=== PATIENT | female | born 1935 | race Caucasian/White ===

== ENCOUNTER → 2016-11-07 | Outpatient (CLI) | payer MEDICARE, BC ==
--- NOTE | 2016-11-07 11:33 | US ---
EXAMINATION TYPE: US carotid duplex BILAT DATE OF EXAM: 11/07/2016 9:54 AM COMPARISON: NONE CLINICAL HISTORY: 81-year-old female R09.89 Carotid bruit. No symptoms per patient, bruit per physici an . TECHNIQUE: Carotid duplex ultrasound examination. Indirect Doppler criteria was utilized. FINDINGS: EXAM MEASUREMENTS: RIGHT: Peak Systolic Velocity (PSV) cm/sec ----- Right CCA: 68.4 ----- Right ICA: 411 ----- Right ECA: 153 ICA/CCA ratio: 6.0 RIGHT: End Diastole cm/sec ----- Right CCA: 25.2 ----- Right ICA: 93 ----- Right ECA: 0 LEFT: Peak Systolic Velocity (PSV) cm/sec ----- Left CCA: 82.9 ----- Left ICA: 343 ----- Left ECA: 180 ICA/CCA ratio: 4.1 LEFT: End Diastole cm/sec ----- Left CCA: 28.5 ----- Left ICA: 89.1 ----- Left ECA: 15.2 VERTEBRALS (direction of flow): Right Vertebral: Antegrade Left Vertebral: Antegrade HAY FARMER NOTES: Severe heterogeneous plaque seen bilaterally with significant stenosis bilaterally . IMPRESSION: Severe atherosclerotic change at both bifurcations with measurements suggesting severe, greater than 70% bilateral proximal ICA stenosis. Criteria for Assigning % of Stenosis / Diameter reduction (Estimation based on the indirect measurements of the internal carotid artery velocities (ICA PSV). 1. Normal (no stenosis)=ICA PSV < 125 cm/s: ratio < 2.0: ICA EDV<40 cm/s. 2. Less than 50% stenosis=ICA PSV < 125 cm/s: ratio < 2.0: ICA EDV<40 cm/s. 3. 50 to 69% stenosis=ICA PSV of 125 to 230 cm/s: ration 2.0 ? 4.0: ICA EDV 40-100 cm/s. 4. Greater than 70% stenosis to near occlusion= ICA PSV > 230 cm/s: ratio > 4.0: ICA EDV > 100 cm/s. 5. Near occlusion= ICA PSV velocities may be low or undetectable: variable ratio and ICA EDV. 6. Total occlusion=unable to detect flow.
== END | disposition home or self-care (01) ==
LOC: RADUSWWP 09:16
PROVIDERS: ATTEND Family Medicine
DX: I65.23 Occlusion and stenosis of bilateral carotid arteries (principal)
CPT/HCPCS: 93880

== ENCOUNTER 2017-12-02 10:15 | Day surgery (SDC) | payer MEDICARE, BC ==
[2017-11-30 11:24] VITALS: BMI 27.3
[~2017-12-02 10:15] MED LIST: ALPRAZolam 0.25 MG TAB PO PRN; ASPIRIN 325 MG TAB PO STA; SODIUM CHLORIDE 0.9% 1,000 ML in EMPTY BAG 1 BAG IV ONE
[2017-12-02] MEDS ORDERED: SODIUM CHLORIDE 0.9% 1,000 ML IV ONE (10:50)
[2017-12-02] MEDS ORDERED: hydrALAZINE HCL 20 MG/ML 1 ML VIAL IVP STA (11:14)
[2017-12-02] MEDS ORDERED: LIDOCAINE 2% INJ 20 MG/ML SQ ONE (12:51)
[2017-12-02] MEDS: MIDAZOLAM 2 MG/2 ML VIAL IVP ONE ×2 (12:58→13:11)
[2017-12-02] MEDS ORDERED: HEPARIN SODIUM 1,000 UN/ML (10ML VL) IV ONE (13:02)
[2017-12-02] MEDS ORDERED: NITROGLYCERIN 1000MCG/10ML SYRINGE INTRAARTER ONE (13:37)
[2017-12-02] MEDS ORDERED: IOPAMIDOL-250 100ML BTL INTRAARTER ONE (13:45)
[2017-12-02] MEDS ORDERED: ALBUTEROL NEBULIZED 2.5 MG/3 ML INHALATION PRN (13:48)
[2017-12-02] MEDS ORDERED: SODIUM CHLORIDE 0.9% 1,000 ML IV SCH (14:00)
[2017-12-02] MEDS ORDERED: CLOPIDOGREL 75 MG TAB PO ONE (14:14)
--- NOTE | 2017-12-02 15:59 | IR ---
Fluoroscopy HISTORY: Pain in right leg 11 minutes fluoroscopy time supplied to the referring clinician. 232 intraoperative C-arm images doc ument the procedure. See dictated report from cardiology.
--- NOTE | 2017-12-02 16:02 | PCN ---
PROCEDURE NOTE DATE OF SERVICE: 12/02/2017 PERFORMING PHYSICIAN: Zeyad Andrews MD. PROCEDURES PERFORMED: 1. Selective right SFA angiogram. 2. Selective right popliteal angiogram. 3. Selective right [id number] angiogram. 4. Successful atherectomy of the right SFA using the TurboHawk device. 5. Successful balloon angioplasty of the right SFA using 5.0 x 40 mm Inpact drug- coated balloon with good angiographic results and reduction of stenosis from 90% to 0%. INDICATION: This is a pleasant 82-year-old female patient who sees Dr. Keith Infante in the office as an outpatient who was experiencing right leg intermittent claudication and underwent a peripheral angiogram that revealed severe disease involving the right SFA. She was brought today to undergo atherectomy and BUCKLE ATTACHING MACHINE OPERATOR of the right SFA. APPROACH: Left common femoral artery. COMPLICATIONS: None. LEVEL OF SEDATION: Moderate with sedation length of 55 minutes. PROCEDURE DESCRIPTION: After obtaining informed consent, the patient was brought to the cardiac agricultural labor camp manager. The left common femoral artery was cannulated using micropuncture technique. The micropuncture wire passed easily. Then I placed a 6-Pu[place]ican sheath in the left common femoral artery. Subsequently anticoagulation was initiated using heparin, and the patient was given weight-based heparin with a total of 8000 . I selected the right SFA using an 0.035 Advantage Glidewire with the back-up support of 5-[place]ican RIM catheter. Then I exchanged my 11 cm 6-Pu[place]ican sheath for a 55 cm Remi sheath using the 0.035 Advantage wire. The tip of the long sheath was positioned in the proximal right common femoral artery. After that I wired the lesion using an 0.014 wire. Then I did atherectomy using the TurboHawk device and I was able to extract a significant amount of plaque. After that I did balloon angioplasty initially using 5.0 AngioSculpt and then 5.0 Inpact drug- coated balloon. The following angiogram showed excellent angiographic results, and the procedure was completed without any complication. POST-PROCEDURE MANAGEMENT: 1. Dual anti-platelet therapy. 2. Risk factor modifications. 3. Follow up with the patient. MMODL / IJN: [id number] /
[2017-12-02] MEDS ORDERED: ATROPINE SULFATE 0.1 MG/ML 10ML SYRINGE ONE (17:27)
[2017-12-02] MEDS: levETIRAcetam 500 MG TAB PO SCH (20:33)
[2017-12-02] MEDS: SYMBICORT 160-4.5 MCG INHALER INHALATION SCH (20:39)
[2017-12-02] MEDS ORDERED: ATORVASTATIN 40 MG TAB PO SCH (21:00)
[2017-12-03] MEDS ORDERED: MORPHINE SULFATE 4 MG/ML SYRINGE IVP ONE (00:16)
[2017-12-03 08:02] VITALS: RESP 20
[2017-12-03] MEDS: levETIRAcetam 500 MG TAB PO SCH (08:03)
[2017-12-03] MEDS: SYMBICORT 160-4.5 MCG INHALER INHALATION SCH (08:53)
[2017-12-03] MEDS ORDERED: ASPIRIN 81 MG PO SCH (09:00)
[2017-12-03] MEDS ORDERED: LISINOPRIL-HCTZ 20-25 MG 1 EACH TAB PO SCH (09:00)
[2017-12-03] MEDS ORDERED: CLOPIDOGREL 75 MG TAB PO SCH (09:00)
[2017-12-03 11:25] VITALS: BP 120/59; PULSE 71; TEMP 98.2
[2017-12-03] MEDS ORDERED: CHOLECALCIFEROL 1,000 UNIT TAB PO SCH (12:00)
[2017-12-03] MEDS ORDERED: FERROUS SULFATE 325 MG TAB PO SCH (12:00)
--- NOTE | 2017-12-03 21:33 | DS ---
DISCHARGE SUMMARY DATE OF ADMISSION: 12/02/17 DATE OF DISCHARGE: December 03, 2017 BRIEF HISTORY: This is a pleasant 82-year-old female patient who sees Dr. Keith Infante in the office on a regular basis who was experiencing right leg intermittent claudication and underwent a peripheral angiogram and that revealed critical disease involving the right proximal SFA. She was admitted to the hospital yesterday and underwent successful atherectomy and balloon angioplasty of the right SFA with a good angiographic result and without any complication from the procedure was performed from the left groin. The left groin is soft and nontender and without any bruises. The patient is going to be discharged home on dual anti-platelet therapy as well as on statin. I will follow up with the patient next week in the office. KENNY / MIKAELA: [id number] /
== END 2017-12-03 14:10 | disposition home or self-care (01) ==
LOC: CATHCVL 10:15 → 6SEL 13:52 → CATHCVL 12-03 14:10
PROVIDERS: ATTEND Internal Medicine Interventional Cardiology
DX: I70.213 Atherosclerosis of native arteries of extremities with intermittent claudication, bilateral legs (principal); I25.10 Atherosclerotic heart disease of native coronary artery without angina pectoris; I10 Essential (primary) hypertension; E78.5 Hyperlipidemia, unspecified; J44.9 Chronic obstructive pulmonary disease, unspecified; F17.210 Nicotine dependence, cigarettes, uncomplicated; Z79.899 Other long term (current) drug therapy; Z79.02 Long term (current) use of antithrombotics/antiplatelets; Z79.52 Long term (current) use of systemic steroids
CPT/HCPCS: 94640 ×2; 94760; 37225; 85347; 82565; C1894 ×4; C1725; C1769 ×4; C1714; C2623; J2001; J2250; J2270; J0360; J1644; Q9966

== ENCOUNTER 2018-03-26 11:13 | Inpatient (IN) | payer MEDICARE, BC ==
[2018-03-26] MEDS ORDERED: ALBUTEROL NEBULIZED 2.5 MG/3 ML INHALATION STA (11:59)
[2018-03-26] MEDS ORDERED: SODIUM CHLORIDE 0.9% 1,000 ML IV STA (11:59)
[2018-03-26] MEDS ORDERED: IPRATROPIUM 0.5 MG/2.5 ML NEBU INHALATION STA (11:59)
--- NOTE | 2018-03-26 12:23 | ED ---
General Adult HPI - General Chief complaint: Shortness of Breath Stated complaint: Pneumonia Time Seen by Provider: 03/26/18 11:41 Source: patient, family Mode of arrival: wheelchair Limitations: no limitations - Related Data Home Medications Medication Instructions Recorded Confirmed Albuterol Inhaler [Ventolin Hfa 2 puff INHALATION Q6HR PRN 11/30/17 12/02/17 Inhaler] Aspirin [Adult Low Dose Aspirin EC] 81 mg PO DAILY 11/30/17 12/02/17 Atorvastatin [Lipitor] 40 mg PO HS 11/30/17 12/02/17 Budesonide-Formot 160-4.5 Mcg 2 puff INHALATION Q12HR 11/30/17 12/02/17 [Symbicort 160-4.5 Mcg Inhaler] Cholecalciferol [Vitamin D3] 5,000 unit PO DAILY 11/30/17 12/02/17 Clopidogrel Bisulfate [Plavix] 75 mg PO DAILY 11/30/17 12/02/17 Ferrous Sulfate [Iron (65 MG 325 mg PO DAILY 11/30/17 12/02/17 Elemental)] Lisinopril-Hctz 20-25 mg 1 tab PO DAILY 11/30/17 12/02/17 [Zestoretic 20-25] levETIRAcetam [Keppra] 500 mg PO Q12HR 11/30/17 12/02/17 Allergies Allergy/AdvReac Type Severity Reaction Status Date / Time No Known Allergies Allergy Verified 03/26/18 11:21 Review of Systems ROS Statement: Those systems with pertinent positive or pertinent negative responses have been documented in the HPI. ROS Other: All systems not noted in ROS Statement are negative. Past Medical History Past Medical History: COPD, CVA/TIA, Hypertension, Osteoarthritis (OA), Pneumonia, Vascular Disorder Additional Past Medical History / Comment(s): Jul 2017-seizure in [place], stroke 01/20-no effects, arthritis in neck, dermatitis in guillermo ears, oxygen 2L at night History of Any Multi-Drug Resistant Organisms: None Reported Additional Past Surgical History / Comment(s): guillermo carotid endarterectomy, guillermo cataracts, Past Anesthesia/Blood Transfusion Reactions: No Reported Reaction Past Psychological History: No Psychological Hx Reported Smoking Status: Current every day smoker Past Alcohol Use History: None Reported Past Drug Use History: None Reported - Past Family History Daughter(s) Family Medical History: Cancer General Exam Limitations: no limitations Course Vital Signs 03/26/18 11:19 Temperature 97.8 F Pulse Rate 85 Respiratory 18 Rate Blood Pressure 130/61 O2 Sat by Pulse 93 L Oximetry EKG Findings - EKG Comments: EKG Findings:: EKG shows normal sinus rhythm rate of 69, WA 152, QRS 84, QTc 4: 15 Medical Decision Making - Lab Data Result diagrams: 03/26/18 12:19 Lab Results 03/26/18 Range/Units 12:19 WBC 9.3 (3.8-10.6) k/uL RBC 3.92 (3.80-5.40) m/uL Hgb 12.1 (11.4-16.0) gm/dL Hct 37.8 (34.0-46.0) % MCV 96.4 (80.0-100.0) fL MCH 30.7 (25.0-35.0) pg MCHC 31.9 (31.0-37.0) g/dL RDW 13.2 (11.5-15.5) % Plt Count 318 (150-450) k/uL Neutrophils % 79 % Lymphocytes % 10 % Monocytes % 7 % Eosinophils % 2 % Basophils % 1 % Neutrophils # 7.3 (1.3-7.7) k/uL Lymphocytes # 1.0 (1.0-4.8) k/uL Monocytes # 0.6 (0-1.0) k/uL Eosinophils # 0.2 (0-0.7) k/uL Basophils # 0.1 (0-0.2) k/uL Disposition Clinical Impression: Community acquired pneumonia, Failure of outpatient treatment Disposition: ADMITTED IP TO THIS HOSP Condition: Good Is patient prescribed a controlled substance at d/c from ED?: No Referrals: Angel Thomson MD [Primary Care Provider] - 1-2 days
[2018-03-26 12:31] LABS: Basophils # (A) 0.1 k/uL (0-0.2); Basophils % (A) 1 %; Eosinophils # (A) 0.2 k/uL (0-0.7); Eosinophils % (A) 2 %; HCT 37.8 % (34.0-46.0); HGB 12.1 gm/dL (11.4-16.0); Lymphocytes % (A) 10 %; MCH 30.7 pg (25.0-35.0); MCHC 31.9 g/dL (31.0-37.0); MCV 96.4 fL (80.0-100.0); Mean Platelet Volume 6.8; Monocytes # (A) 0.6 k/uL (0-1.0); Monocytes % (A) 7 %; Neutrophils # (A) 7.3 k/uL (1.3-7.7); Neutrophils % (A) 79 %; Platelet Count 318 k/uL (150-450); RBC 3.92 m/uL (3.80-5.40); RDW 13.2 % (11.5-15.5); WBC 9.3 k/uL (3.8-10.6)
[2018-03-26] MEDS ORDERED: LEVOFLOXACIN 750MG-D5W PMX 750 MG in DEXTROSE/WATER 1 150ML.BAG IVPB STA (12:35)
[2018-03-26] MEDS ORDERED: PIPERACILLIN-TAZOBACTAM 3.375 GM in DEXTROSE/WATER 1 50ML.BAG IVPB STA (12:35)
[2018-03-26] MEDS ORDERED: PNEUMONIA PROTOCOL UTILIZED 1 EACH MISC PO PRN (12:35)
[2018-03-26 12:43] LABS: Partial Thromboplastin Time 22.4 sec (22.0-30.0); Prothrombin Time 9.9 sec (9.0-12.0)
[2018-03-26 12:48] LABS: Albumin 3.4 g/dL (3.5-5.0); Calcium 8.8 mg/dL (8.4-10.2); Magnesium 1.7 mg/dL (1.6-2.3); Potassium 4.3 mmol/L (3.5-5.1); Total Bilirubin 0.4 mg/dL (0.2-1.3); Total Protein 6.2 g/dL (6.3-8.2)
[2018-03-26 12:51] LABS: Creatine Kinase 57 U/L (30-135)
[2018-03-26 13:02] LABS: Creatine Kinase MB 1.1 ng/mL (0.0-2.4); Troponin I <0.012 ng/mL (0.000-0.034)
[2018-03-26] MEDS: IPRATROPIUM-ALBUTEROL 3 ML NEB INHALATION SCH ×2 (16:08→20:17)
[2018-03-26] MEDS: ACETAMINOPHEN TAB 325 MG TAB PO PRN (17:34)
[2018-03-26] MEDS ORDERED: BETAMETHASONE DIPROPIONATE 0.05% CREAM 15 GM TUBE TOPICAL PRN (22:30)
[2018-03-26] MEDS ORDERED: LACTULOSE 20 GM/30 ML CUP PO PRN (22:34)
[2018-03-26] MEDS ORDERED: CALCIUM CARBONATE 500 MG CHEWABLE PO PRN (22:34)
[2018-03-26] MEDS ORDERED: ALPRAZolam 0.25 MG TAB PO PRN (22:34)
[2018-03-26] MEDS ORDERED: MAGNESIUM HYDROXIDE 2,400 MG/10 ML CUP PO PRN (22:34)
[2018-03-26] MEDS ORDERED: ONDANSETRON 4 MG/2 ML VIAL IVP PRN (22:34)
[2018-03-26] MEDS ORDERED: MELATONIN 3 MG TABLET PO PRN (23:00)
[2018-03-26] MEDS: methylPREDNISolone SOD SUCCI 40 MG/ML 1 ML VIAL IV SCH (23:14)
--- NOTE | 2018-03-26 23:28 | HP ---
HISTORY AND PHYSICAL DATE OF ADMISSION: 03/26/2018 PRESENTING COMPLAINT: Short of breath. HISTORY OF PRESENTING COMPLAINT: This is a pleasant 82-year-old patient of Dr. Thomson, follows with engineering technical specialist Dr. Nam Reyes. Chronic stable medical conditions include hypertension, osteoarthritis, chronic hypoxic respiratory failure on 2L oxygen at home. The patient has continued to smoke for several years. The patient presents with progressive short of breath, wheezing, slight cough. No fever. No chills. Decreased appetite. Tired, run down, can barely breathe at rest. Patient is found to be in COPD exacerbation, started on bronchodilators. Admitted for the same. Denies any fever or chills. No diarrhea. REVIEW OF SYSTEMS: CONSTITUTIONAL: Tired. HEENT: None. RESPIRATORY: As above. CARDIOVASCULAR: None. GASTROINTESTINAL: None. GENITOURINARY: None. MUSCULOSKELETAL: Arthritic pain in joints, especially in the neck. DERMATOLOGICAL: None. HEMATOLOGICAL: None. LYMPHATICS: None. PSYCHIATRY: Slightly anxious. NEUROLOGICAL: None. PAST MEDICAL HISTORY: COPD, hypertension, osteoarthritis, vascular disorder, seizure in 2018 in the , stroke in January of 2013 with no effect, arthritis in the neck, dermatitis in the ears, oxygen 2L at night. PAST SURGICAL HISTORY: Bilateral carotid endarterectomy, bilateral cataract, angiogram, arthrectomy, balloon angioplasty of the right superficial femoral artery. SOCIAL HISTORY: Lives alone. Still smokes about 5 cigarettes a day. Smoked for 65 years, more so in the past. No alcohol. FAMILY HISTORY: Brain aneurysm. HOME MEDICATIONS: 1. Medrol Dosepak. 2. Multivitamin 1 tablet p.o. daily. 3. Zestoretic 20/25 one tablet p.o. daily. 4. DuoNeb 3 mL. 5. Boniva 150 mg p.o. once a month. 6. Fluocinonide 1 dose both ears q.i.d. p.r.n. 7. Iron 325 p.o. daily. 8. Doxycycline 100 mg p.o. b.i.d. 9. Plavix 75 mg p.o. daily. 10.Vitamin D3 5000 units p.o. daily. 11.Calcium 1000 mg p.o. daily. 12.Symbicort 160/4.5, 2 puffs b.i.d. 13.Lipitor 40 mg q.h.s. 14.Aspirin 81 mg p.o. daily. 15.Ventolin HFA 2 puffs every 6 hours p.r.n. 16.Tudorza 1 puff b.i.d. ALLERGIES: None. EXAMINATION: Temperature 97.8, pulse 64, respirations 18, blood pressure 130/61, pulse ox 93% on 2L. GENERAL APPEARANCE: Average build, lying in bed, short of breath. EYES: Pupils equal. Conjunctivae normal. HEENT: External nose and ears normal. Oral cavity normal. NECK: JVD not raised. Mass not palpable. RESPIRATORY: Effort increased. Short of breath at rest, not able to speak full in full sentences. LUNGS: Diminished breath sounds. Prolonged expiration, wheezing. CARDIOVASCULAR: First and second sounds normal. No edema. ABDOMEN: Soft, nontender. Liver and spleen not palpable. LYMPHATIC: No lymph node palpable in neck or axillae. PSYCHIATRY: Alert and oriented x3. Mood and affect slightly anxious-appearing. NEUROLOGICAL: Pupils equal. Cranial nerves grossly intact. Power and sensation grossly intact. MUSCULOSKELETAL: Some evidence of osteoarthritis, especially in the hands. INVESTIGATIONS: White count 9.3, hemoglobin 12.1. Potassium 4.3, BUN 25, creatinine 0.86. EKG tracing interpreted by me shows normal sinus rhythm. Chest x-ray ordered. ASSESSMENT: 1. Acute severe chronic obstructive pulmonary disease exacerbation in a current smoker. 2. Chronic nicotine dependence. Patient an active cigarette smoker. 3. Essential hypertension. 4. Primary osteoarthritis, multiple joints. 5. Chronic hypoxic respiratory failure on home oxygen 2L. PLAN: Patient is started on nebulized Daliresp q.4, IV Solu-Medrol inhaled steroids. Home medications are resumed. Will humidify the oxygen. The patient's engineering technical specialist, Dr. Reyes, is being consulted. Care was discussed with the patient at length. Smoking cessation counseling was done at length with the patient, including effects on her COPD. Nicotine patch will be given. More than 3 minutes was spent on this aspect of the case. MMODL / IJN: [id number] /
[2018-03-26] MEDS: BUDESONIDE 1 MG/2 ML NEBU INHALATION SCH (23:49)
[2018-03-26] MEDS: IPRATROPIUM-ALBUTEROL 3 ML NEB INHALATION PRN (23:49)
[2018-03-27] MEDS ORDERED: IPRATROPIUM-ALBUTEROL 3 ML NEB INHALATION SCH
[2018-03-27] MEDS: NICOTINE 7MG/24HR PATCH TRANSDERM SCH ×3 (00:14→08:24)
[2018-03-27] MEDS: ATORVASTATIN 40 MG TAB PO SCH ×2 (00:14→19:54)
[2018-03-27] MEDS: methylPREDNISolone SOD SUCCI 40 MG/ML 1 ML VIAL IV SCH ×4 (00:14→23:01)
[2018-03-27] MEDS: PIPERACILLIN-TAZOBACTAM 3.375 GM in DEXTROSE/WATER 1 50ML.BAG IVPB SCH ×4 (00:16→23:01)
[2018-03-27] MEDS: IPRATROPIUM-ALBUTEROL 3 ML NEB INHALATION PRN (03:55)
[2018-03-27 07:10] LABS: Glucose,Whole Blood 196 mg/dL (75-99)
[2018-03-27] MEDS ORDERED: SYMBICORT 160-4.5 MCG INHALER INHALATION SCH (08:00)
[2018-03-27] MEDS: IPRATROPIUM-ALBUTEROL 3 ML NEB INHALATION SCH ×4 (08:17→20:14)
[2018-03-27] MEDS: BUDESONIDE 1 MG/2 ML NEBU INHALATION SCH ×2 (08:17→20:14)
[2018-03-27] MEDS: CHOLECALCIFEROL 1,000 UNIT TAB PO SCH (08:24)
[2018-03-27] MEDS: CALCIUM CARBONATE 500 MG CHEWABLE PO SCH (08:24)
[2018-03-27] MEDS: INSULIN ASPART 100 UNIT/ML 1 ML 10 ML VIAL SQ SCH ×3 (08:25→18:02)
[2018-03-27] MEDS: LISINOPRIL-HCTZ 20-25 MG 1 EACH TAB PO SCH (08:25)
[2018-03-27] MEDS: ASPIRIN 81 MG PO SCH (08:25)
[2018-03-27] MEDS: ENOXAPARIN 40 MG/0.4 ML SYRINGE SQ SCH (08:26)
[2018-03-27] MEDS: CLOPIDOGREL 75 MG TAB PO SCH (08:26)
[2018-03-27] MEDS: FERROUS SULFATE 325 MG TAB PO SCH (08:26)
[2018-03-27 12:08] LABS: Glucose,Whole Blood 252 mg/dL (75-99)
--- NOTE | 2018-03-27 12:20 | XR ---
EXAMINATION TYPE: XR chest 2V DATE OF EXAM: 03/27/2018 HISTORY: pneumonia. REFERENCE: NONE. FINDINGS: There is a right lower lobe infiltrate. There may also be a mild left lower lobe infiltrate . There is a small right effusion. The heart is not enlarged. IMPRESSION: 1. BIBASILAR INFILTRATES. 2. SMALL RIGHT EFFUSION.
[2018-03-27] MEDS: MULTIVITAMINS, THERA 1 EACH TAB PO SCH (12:52)
[2018-03-27] MEDS ORDERED: LEVOFLOXACIN 750MG-D5W PMX 750 MG in DEXTROSE/WATER 1 150ML.BAG IVPB SCH (16:00)
[2018-03-27 17:26] LABS: Glucose,Whole Blood 290 mg/dL (75-99)
[2018-03-27] MEDS: FAMOTIDINE 20 MG TAB PO SCH (19:54)
[2018-03-27] MEDS: MONTELUKAST 10 MG TAB PO SCH (19:54)
[2018-03-27 20:54] LABS: Glucose,Whole Blood 142 mg/dL (75-99)
--- NOTE | 2018-03-27 22:29 | CONS ---
CONSULTATION Elba Burnham is an 82-year-old female who presented to the ED at [facility] with increasing shortness of breath. She had been doing fair up until 5 days ago when she developed shortness of breath. She had been in the [facility] and started to have cough with wheezing. She had no fever or chills. She was seen by her primary care provider 2 days after that. Subsequently was started on steroids and antibiotics. She was seen again and had failed to improve and subsequently was sent to the ER for further evaluation. She apparently was treated for pneumonia about 6 weeks ago. She does not have much sputum production and is feeling somewhat better today. PAST MEDICAL HISTORY: Positive for COPD. No clear history of asthma. However, she has seasonal worsening of her symptoms and allergy-like symptoms usually during this spring. History of CVA, TIA, a history of seizures, history of bilateral carotid endarterectomy, bilateral cataract surgery. SOCIAL HISTORY: Positive for hypertension and diabetes in her mother and father. SOCIAL HISTORY: Patient is a smoker, smokes about 5 cigarettes per day and used to smoke about 1-2 packs of cigarettes per day. She does not drink alcohol excessively. MEDICATIONS: Prior to admission were Medrol Dosepak, multivitamins, Zestoretic, DuoNeb, Boniva, fluocinonide solution to both ears, ferrous sulfate, doxycycline, clopidogrel bisulfate, calciferol, calcium carbonate, budesonide with formoterol, Lipitor, baby aspirin, Tudorza, and Ventolin HFA. REVIEW OF SYSTEMS: Noncontributory. PHYSICAL EXAMINATION: Respiratory rate is 18, pulse rate of 92, O2 saturation on 2 L by nasal cannula is 92%, temperature is 97.6, blood pressure 124/60. HEENT reveals pupils are equal. No jugular venous distention. Chest reveals decreased breath sounds with prolonged expiration, bilateral expiratory wheeze. Cardiovascular system reveals an S1, S2. No S3, no S4. ABDOMEN: Soft. There is no pedal edema. LABS: Reveal a white count of 9.3, hemoglobin of 12.1, sodium 138, potassium 4.3, chloride 102, bicarb 31, BUN 25, creatinine 0.86, absolute eosinophil count of 0.2, glucose is 196. Chest x-ray shows right lower zone infiltrate with a mild left lower zone infiltrate or atelectasis is a small right pleural effusion. IMPRESSION: 1. Severe asthma with chronic obstructive pulmonary disease with acute exacerbation. 2. It is not clear whether the patient has a secondary bacterial infection and may have a partially treated pneumonia versus mucous plugging in the lower zones. As the patient had received doxycycline as an outpatient, would continue her on the Levaquin for now. Would keep her on IV steroids, bronchodilators, aerosolized steroids at regimen in the hopes that we can decrease her need for systemic steroids. Check an allergy profile on her. Increase her activity level. Depending on how she does we should make further changes to her care. She was counseled regarding her condition and this approach. MMODL / IJN: [id number] /
--- NOTE | 2018-03-28 04:23 | PN ---
PROGRESS NOTE DATE OF SERVICE: 03/27/2018. PRESENTING COMPLAINT: Short of breath. INTERVAL HISTORY: Patient admitted with COPD exacerbation. The patient's shortness of breath is still present. Minimal cough. Did tolerate a diet. Has been taking breathing treatments which she had refused initially. Family is at the bedside. REVIEW OF SYSTEMS: Done for constitutional, cardiovascular, GI, pulmonary; relevant findings as above. CURRENT MEDICATIONS: Reviewed that include DuoNeb, IV Solu-Medrol 40 q.8h. EXAMINATION: Temperature 97.6, pulse 83, respirations 16, blood pressure 120/53, pulse ox 91 percent on 2 L. GENERAL APPEARANCE: Sitting up in bed, awake. EYES: Pupils equal. Conjunctivae normal. HEENT: External ears and nose normal. Oral cavity normal. NECK: JVD not raised. Mass not palpable. Respiratory effort increased. LUNGS: Decreased breath sounds. Prolonged expiration. CARDIOVASCULAR: First and second sounds normal, no edema. ABDOMEN: Soft, nontender. Liver and spleen not palpable. PSYCHIATRY: Alert and oriented x3. Mood and affect slightly anxious. INVESTIGATIONS: Accu-Cheks 252, 290, 142. ASSESSMENT: 1. Acute severe chronic obstructive pulmonary disease exacerbation in a current smoker, slow to respond. 2. Chronic nicotine dependence, patient active cigarette smoker. 3. Essential hypertension. 4. Primary osteoarthritis multiple joints. 5. Chronic hypoxic respiratory failure on home oxygen 2 L. 6. Hyperglycemia secondary to steroids. PLAN: Continue the patient on breathing treatments, IV Solu-Medrol. Smoking cessation was reinforced to the patient and also the patient's daughter at the bedside. Care was discussed with the patient. Questions were answered. MMODL / IJN: [id number] /
[2018-03-28 07:16] LABS: Glucose,Whole Blood 194 mg/dL (75-99)
[2018-03-28] MEDS: CALCIUM CARBONATE 500 MG CHEWABLE PO SCH (07:26)
[2018-03-28] MEDS: LISINOPRIL-HCTZ 20-25 MG 1 EACH TAB PO SCH (07:26)
[2018-03-28] MEDS: PIPERACILLIN-TAZOBACTAM 3.375 GM in DEXTROSE/WATER 1 50ML.BAG IVPB SCH (07:27)
[2018-03-28] MEDS: CLOPIDOGREL 75 MG TAB PO SCH (07:27)
[2018-03-28] MEDS: ASPIRIN 81 MG PO SCH (07:27)
[2018-03-28] MEDS: ENOXAPARIN 40 MG/0.4 ML SYRINGE SQ SCH (07:27)
[2018-03-28] MEDS: NICOTINE 7MG/24HR PATCH TRANSDERM SCH ×2 (07:27→08:00)
[2018-03-28] MEDS: methylPREDNISolone SOD SUCCI 40 MG/ML 1 ML VIAL IV SCH (07:27)
[2018-03-28] MEDS: CHOLECALCIFEROL 1,000 UNIT TAB PO SCH (07:27)
[2018-03-28] MEDS: FERROUS SULFATE 325 MG TAB PO SCH (07:27)
[2018-03-28] MEDS: FAMOTIDINE 20 MG TAB PO SCH ×2 (07:27→20:23)
[2018-03-28] MEDS: INSULIN ASPART 100 UNIT/ML 1 ML 10 ML VIAL SQ SCH ×3 (07:58→17:40)
[2018-03-28] MEDS: BUDESONIDE 1 MG/2 ML NEBU INHALATION SCH ×2 (09:12→20:01)
[2018-03-28] MEDS: IPRATROPIUM-ALBUTEROL 3 ML NEB INHALATION SCH ×4 (09:12→20:01)
[2018-03-28 12:39] LABS: Glucose,Whole Blood 243 mg/dL (75-99)
[2018-03-28] MEDS: MULTIVITAMINS, THERA 1 EACH TAB PO SCH (12:45)
[2018-03-28] MEDS: predniSONE 20 MG TAB PO SCH (14:40)
--- NOTE | 2018-03-28 15:10 | PN ---
PROGRESS NOTE She is less short of breath and seen again on 03/28/2018. She has less wheezing. On physical examination she is sitting in bed. Her O2 saturation on 2 L by nasal cannula is 92%, respiratory rate is 18, temperature 98.2, blood pressure 141/68, pulse rate of 75. HEENT is unremarkable. Chest reveals faint wheeze on forced expiration. Cardiovascular system: S1, S2. Abdomen is soft. There is no pedal edema. IgE level is high at 307. IMPRESSION: 1. Severe asthma with acute exacerbation. 2. Baseline chronic obstructive pulmonary disease. 3. Previous nicotine dependence. At this point in time continue systemic steroids, switch her to oral steroids, continue bronchodilators, aerosolized steroid. She would benefit from anti IgE treatment as an outpatient. She was counseled regarding her condition and this approach. MMFEIL / IJN: [id number] /
[2018-03-28] MEDS: LEVOFLOXACIN 500 MG TAB PO SCH (15:52)
--- NOTE | 2018-03-28 16:55 | PN ---
PROGRESS NOTE DATE OF SERVICE: 03/28/2018. PRESENTING COMPLAINT: Short of breath. INTERVAL HISTORY: Patient presented with COPD exacerbation. Still has a wheezing. Minimal cough, no sputum. Gets short of breath easily. Family is at the bedside. Tolerating a diet. REVIEW OF SYSTEMS: Done for constitutional, cardiovascular, GI, pulmonary; relevant findings as above. CURRENT MEDICATIONS: Reviewed, that include oral prednisone. EXAMINATION: Temperature 98.1, pulse 59, respirations 17, blood pressure 140/65, pulse 92 percent on 3 liters. GENERAL APPEARANCE: Sitting up, awake. EYES: Pupils equal. Conjunctivae normal. HEENT: External nose and ears normal. Oral cavity normal. NECK: JVD not raised. Mass not palpable. LUNGS: Respiratory effort increased. Lungs decreased breath sounds, prolonged expiration and wheezing. CARDIOVASCULAR: 1st and 2nd heart sounds. No edema. ABDOMEN: Soft, nontender. Liver and spleen not palpable. PSYCHIATRY: Alert and oriented x3. Mood and affect normal. INVESTIGATIONS: Accu-Cheks 291, 42, 194, 243. ASSESSMENT: 1. Acute severe chronic obstructive pulmonary disease exacerbation in a current smoker, slow to respond. 2. Chronic nicotine dependence, patient is an active cigarette smoker. 3. Essential hypertension. 4. Primary osteoarthritis of multiple joints. 5. Chronic hypoxic respiratory failure on home oxygen 2 L. 6. Hyperglycemia secondary to steroids. PLAN: Continue bronchodilators. Has been switched to p.o. prednisone by Dr. Ramos. The patient is afebrile, not bringing up much sputum. We will switch the patient over to p.o. Levaquin and go from there. MMODL / IJN: [id number] /
[2018-03-28 17:51] LABS: Glucose,Whole Blood 211 mg/dL (75-99)
[2018-03-28] MEDS: MONTELUKAST 10 MG TAB PO SCH (20:23)
[2018-03-28] MEDS: ATORVASTATIN 40 MG TAB PO SCH (20:23)
[2018-03-28 20:34] LABS: Glucose,Whole Blood 164 mg/dL (75-99)
[2018-03-29 07:23] LABS: Glucose,Whole Blood 127 mg/dL (75-99)
[2018-03-29] MEDS: IPRATROPIUM-ALBUTEROL 3 ML NEB INHALATION SCH ×4 (08:01→20:59)
[2018-03-29] MEDS: BUDESONIDE 1 MG/2 ML NEBU INHALATION SCH ×2 (08:01→20:59)
[2018-03-29] MEDS: INSULIN ASPART 100 UNIT/ML 1 ML 10 ML VIAL SQ SCH ×3 (08:17→17:23)
[2018-03-29] MEDS: NICOTINE 7MG/24HR PATCH TRANSDERM SCH (08:18)
[2018-03-29] MEDS: FERROUS SULFATE 325 MG TAB PO SCH (08:19)
[2018-03-29] MEDS: ASPIRIN 81 MG PO SCH (08:19)
[2018-03-29] MEDS: predniSONE 20 MG TAB PO SCH (08:19)
[2018-03-29] MEDS: CALCIUM CARBONATE 500 MG CHEWABLE PO SCH (08:19)
[2018-03-29] MEDS: ENOXAPARIN 40 MG/0.4 ML SYRINGE SQ SCH (08:19)
[2018-03-29] MEDS: MULTIVITAMINS, THERA 1 EACH TAB PO SCH (08:19)
[2018-03-29] MEDS: LISINOPRIL-HCTZ 20-25 MG 1 EACH TAB PO SCH (08:19)
[2018-03-29] MEDS: CLOPIDOGREL 75 MG TAB PO SCH (08:20)
[2018-03-29] MEDS: FAMOTIDINE 20 MG TAB PO SCH (08:20)
[2018-03-29] MEDS: LEVOFLOXACIN 500 MG TAB PO SCH (08:20)
[2018-03-29 09:01] LABS: Basophils % (A) 0 %; Eosinophils % (A) 0 %; HCT 37.8 % (34.0-46.0); HGB 12.2 gm/dL (11.4-16.0); Lymphocytes # (A) 1.2 k/uL (1.0-4.8); Lymphocytes % (A) 11 %; MCH 31.3 pg (25.0-35.0); MCHC 32.3 g/dL (31.0-37.0); MCV 96.8 fL (80.0-100.0); Mean Platelet Volume 6.9; Monocytes # (A) 0.5 k/uL (0-1.0); Monocytes % (A) 5 %; Neutrophils # (A) 8.7 k/uL (1.3-7.7); Neutrophils % (A) 82 %; Platelet Count 355 k/uL (150-450); RBC 3.91 m/uL (3.80-5.40); RDW 13.3 % (11.5-15.5); WBC 10.7 k/uL (3.8-10.6)
[2018-03-29] MEDS: CHOLECALCIFEROL 1,000 UNIT TAB PO SCH (09:15)
[2018-03-29 09:17] LABS: Calcium 8.6 mg/dL (8.4-10.2); Potassium 4.4 mmol/L (3.5-5.1)
[2018-03-29 11:54] LABS: Glucose,Whole Blood 275 mg/dL (75-99)
--- NOTE | 2018-03-29 12:09 | P.PN ---
Subjective Progress Note Date: 03/29/18 Principal diagnosis: Acute COPD exacerbation, bilateral pneumonia, failed outpatient therapy, small right-sided pleural effusion 03/29/2018, patient seen eval examined during the rounds clinically she is doing slightly better breathing has improved was still feel congested get short of breath on activity and exertion she has significant bilateral audible wheezing her cough is predominantly dry nonproductive, she remains on broad- spectrum antibiotics along with the IV steroids and breathing treatments, Solu- Medrol was switched to oral prednisone Objective - Vital Signs Vital signs: Vital Signs Temp 98.0 F 03/29/18 07:10 Pulse 89 03/29/18 11:52 Resp 16 03/29/18 07:10 BP 145/89 03/29/18 07:10 Pulse Ox 92 L 03/29/18 07:10 Intake & Output 03/28/18 03/29/18 03/29/18 18:59 06:59 18:59 Other: Voiding Method Toilet Toilet # Voids 2 2 # Bowel Movements 0 - Constitutional General appearance: Present: average body habitus, cooperative, disheveled, mild distress, obese - EENT Eyes: Present: anicteric sclerae, EOMI, PERRLA, normal appearance ENT: Present: normal oropharynx Ears: bilateral: normal - Neck Carotids: bilateral: upstroke normal - Respiratory Respiratory: bilateral: diminished, rhonchi, wheezing, prolonged expiration, prolonged inspiration - Cardiovascular Rhythm: regular Heart sounds: normal: S1, S2 - Gastrointestinal General gastrointestinal: Present: normal bowel sounds, soft - Integumentary Integumentary: Present: normal, normal turgor - Neurologic Neurologic: Present: CNII-XII intact - Musculoskeletal Musculoskeletal: Present: gait normal, generalized weakness, strength equal bilaterally - Psychiatric Psychiatric: Present: A&O x's 3, appropriate affect, intact judgment & insight - Labs CBC & Chem 7: 03/29/18 08:25 03/29/18 08:25 Labs: Abnormal Lab Results - Last 24 Hours (Table) 03/28/18 03/28/18 03/28/18 Range/Units 12:37 17:30 20:32 WBC (3.8-10.6) k/uL Neutrophils # (1.3-7.7) k/uL Carbon Dioxide (22-30) mmol/L BUN (7-17) mg/dL Glucose (74-99) mg/dL POC Glucose (mg/dL) 243 H 211 H 164 H (75-99) mg/dL 03/29/18 03/29/18 03/29/18 Range/Units 07:21 08:25 08:25 WBC 10.7 H (3.8-10.6) k/uL Neutrophils # 8.7 H (1.3-7.7) k/uL Carbon Dioxide 31 H (22-30) mmol/L BUN 31 H (7-17) mg/dL Glucose 124 H (74-99) mg/dL POC Glucose (mg/dL) 127 H (75-99) mg/dL 03/29/18 Range/Units 11:50 WBC (3.8-10.6) k/uL Neutrophils # (1.3-7.7) k/uL Carbon Dioxide (22-30) mmol/L BUN (7-17) mg/dL Glucose (74-99) mg/dL POC Glucose (mg/dL) 275 H (75-99) mg/dL Microbiology - Last 24 Hours (Table) 03/26/18 14:55 Blood Culture - Preliminary Blood No Growth after 48 hours 03/26/18 12:19 Blood Culture - Preliminary Blood No Growth after 48 hours - Imaging and Cardiology Chest x-ray: report reviewed, image reviewed Assessment and Plan Assessment: Bilateral basal pneumonia, with failed outpatient therapy Small right-sided pleural effusion Acute COPD exacerbation with baseline severe COPD Hypertension and hypertensive cardiovascular disease Acute on chronic hypoxic respirator failure on home oxygen Degenerative joint disease osteoarthritis Plan: Continue breathing treatments Continue oral prednisone Continue supplemental oxygen Agree with switching IV steroids to oral prednisone Continue antibiotics Deep breathing exercises incentive spirometry Repeat the chest x-ray to reassess the pleural effusion on the right side Further recommendations pending plan of care as per clinical response of patient would recommend to keep the patient and the hospital not ready for discharge discussed with the nursing staff at length as well as the patient Time with Patient: Greater than 30
--- NOTE | 2018-03-29 14:18 | XR ---
EXAMINATION TYPE: XR chest 2V DATE OF EXAM: 03/29/2018 COMPARISON: March 27, 2018 HISTORY: Shortness of breath TECHNIQUE: Frontal and lateral views of the chest are obtained. FINDINGS: Scattered senescent parenchymal changes noted. Hyperinflation compatible with COPD. No evidence for infiltrate. No evidence for atelectasis. Heart size is stable. Mediastinal structures are stable and grossly unremarkable. No evidence for hilar prominence. Degenerative changes dorsal spine. IMPRESSION: 1. No evidence for acute pulmonary disease.
[2018-03-29 17:06] LABS: Glucose,Whole Blood 193 mg/dL (75-99)
[2018-03-29] MEDS: MONTELUKAST 10 MG TAB PO SCH (19:44)
[2018-03-29] MEDS: ATORVASTATIN 40 MG TAB PO SCH (19:44)
[2018-03-30] MEDS: ACETAMINOPHEN TAB 325 MG TAB PO PRN (06:09)
--- NOTE | 2018-03-30 06:09 | PN ---
PROGRESS NOTE DATE OF SERVICE: 03/29/18. PRESENTING COMPLAINT: Short of breath. INTERVAL HISTORY: Patient presented with COPD exacerbation. Breathing is improving. At present tolerating a diet. Minimal cough. Getting oxygen support. Tolerating a diet. REVIEW OF SYSTEMS: Done for constitutional, cardiovascular, GI, pulmonary; relevant findings as above. CURRENT MEDICATIONS: Reviewed and include nebulized bronchodilators and steroids. EXAMINATION: Temperature 99.5, pulse 72, respiration 16, blood pressure 123/57, pulse ox 91 percent on 2.5 L. GENERAL APPEARANCE: Sitting in bed, tired-appearing. EYES: Pupils equal. Conjunctivae normal. HEENT: External appearance of nose and ears normal. Oral cavity normal. NECK: JVD not raised. Mass not palpable. RESPIRATORY: Effort increased. Lungs, decreased breath sounds with prolonged expiration. CARDIOVASCULAR: First and second sounds normal, no edema. ABDOMEN: Soft, nontender. Liver and spleen not palpable. PSYCHIATRY: Alert and oriented x3. Mood and affect normal. INVESTIGATIONS: Accu-Cheks are noted. White count 10.7. Chest x-ray, no infiltrate. ASSESSMENT: 1. Acute severe chronic obstructive pulmonary disease exacerbation in a current smoker. 2. Chronic nicotine dependence, patient active cigarette smoker. 3. Essential hypertension. 4. Primary osteoarthritis of multiple joints. 5. Chronic hypoxic respiratory failure on home oxygen 2 L. 6. Hyperglycemia secondary to steroids. PLAN: Care was discussed with the patient. Questions were answered. Continue current medication and treatment plan. Hoping to discharge the patient depending on Dr. Reyes's assessment. MMODL / IJN: [id number] /
[2018-03-30 06:12] VITALS: TEMP 97.8
[2018-03-30] MEDS: LISINOPRIL-HCTZ 20-25 MG 1 EACH TAB PO SCH (06:43)
[2018-03-30] MEDS: cloNIDine HCL 0.1 MG TAB PO SCH ×2 (06:44→08:34)
[2018-03-30 07:06] LABS: Glucose,Whole Blood 103 mg/dL (75-99)
[2018-03-30] MEDS: INSULIN ASPART 100 UNIT/ML 1 ML 10 ML VIAL SQ SCH ×2 (07:33→12:35)
[2018-03-30] MEDS: BUDESONIDE 1 MG/2 ML NEBU INHALATION SCH (07:38)
[2018-03-30] MEDS: IPRATROPIUM-ALBUTEROL 3 ML NEB INHALATION SCH ×2 (07:39→11:13)
[2018-03-30 08:20] VITALS: BP 120/50
[2018-03-30] MEDS: CHOLECALCIFEROL 1,000 UNIT TAB PO SCH (08:33)
[2018-03-30] MEDS: CALCIUM CARBONATE 500 MG CHEWABLE PO SCH (08:33)
[2018-03-30] MEDS: ASPIRIN 81 MG PO SCH (08:33)
[2018-03-30] MEDS: ENOXAPARIN 40 MG/0.4 ML SYRINGE SQ SCH (08:34)
[2018-03-30] MEDS: CLOPIDOGREL 75 MG TAB PO SCH (08:34)
[2018-03-30] MEDS: predniSONE 20 MG TAB PO SCH (08:35)
[2018-03-30] MEDS: NICOTINE 7MG/24HR PATCH TRANSDERM SCH (08:35)
[2018-03-30] MEDS: FERROUS SULFATE 325 MG TAB PO SCH (08:35)
[2018-03-30] MEDS ORDERED: FAMOTIDINE 20 MG TAB PO SCH (09:00)
[2018-03-30 09:58] LABS: Calcium 8.6 mg/dL (8.4-10.2); Potassium 4.2 mmol/L (3.5-5.1)
[2018-03-30 11:14] VITALS: PULSE 84
[2018-03-30 11:19] LABS: Glucose,Whole Blood 175 mg/dL (75-99)
[2018-03-30] MEDS ORDERED: LEVOFLOXACIN 250 MG TAB PO SCH (12:00)
[2018-03-30] MEDS: MULTIVITAMINS, THERA 1 EACH TAB PO SCH (12:35)
[2018-03-30 12:38] VITALS: RESP 22
--- NOTE | 2018-03-30 13:35 | P.PN ---
Subjective Progress Note Date: 03/30/18 Principal diagnosis: Acute COPD exacerbation, bilateral pneumonia, failed outpatient therapy, small right-sided pleural effusion 03/29/2018, patient seen evdean examined during the rounds clinically she is doing slightly better breathing has improved was still feel congested get short of breath on activity and exertion she has significant bilateral audible wheezing her cough is predominantly dry nonproductive, she remains on broad- spectrum antibiotics along with the IV steroids and breathing treatments, Solu- Medrol was switched to oral prednisone 03/30/2018, patient seen huang examined during the rounds clinically doing much better cough congestion shortness of breath is still there was severity has improved today she has less audible wheezing, patient remains on supplemental oxygen, labs reviewed medications reviewed him a chest x-ray repeat reviewed as well there is a resolution of pleural effusion noted along with significant improvement of infiltrate Objective - Vital Signs Vital signs: Vital Signs Temp 97.8 F 03/30/18 05:45 Pulse 84 03/30/18 11:24 Resp 22 03/30/18 12:37 BP 120/50 03/30/18 08:20 Pulse Ox 91 L 03/30/18 12:37 Intake & Output 03/29/18 03/30/18 03/30/18 18:59 06:59 18:59 Other: Voiding Method Toilet # Voids 3 2 - Exam - Constitutional General appearance: Present: average body habitus, cooperative, disheveled, mild distress, obese - EENT Eyes: Present: anicteric sclerae, EOMI, PERRLA, normal appearance ENT: Present: normal oropharynx Ears: bilateral: normal - Neck Carotids: bilateral: upstroke normal - Respiratory Respiratory: bilateral: diminished, rhonchi, wheezing, prolonged expiration, prolonged inspiration, exam significantly improved compared to yesterday - Cardiovascular Rhythm: regular Heart sounds: normal: S1, S2 - Gastrointestinal General gastrointestinal: Present: normal bowel sounds, soft - Integumentary Integumentary: Present: normal, normal turgor - Neurologic Neurologic: Present: CNII-XII intact - Musculoskeletal Musculoskeletal: Present: gait normal, generalized weakness, strength equal bilaterally - Psychiatric Psychiatric: Present: A&O x's 3, appropriate affect, intact judgment & insight - Labs CBC & Chem 7: 03/29/18 08:25 03/30/18 09:00 Labs: Abnormal Lab Results - Last 24 Hours (Table) 03/29/18 03/30/18 03/30/18 Range/Units 17:03 06:56 09:00 Sodium 136 L (137-145) mmol/L Carbon Dioxide 32 H (22-30) mmol/L BUN 35 H (7-17) mg/dL Creatinine 1.35 H (0.52-1.04) mg/dL Glucose 184 H (74-99) mg/dL POC Glucose (mg/dL) 193 H 103 H (75-99) mg/dL 03/30/18 Range/Units 11:16 Sodium (137-145) mmol/L Carbon Dioxide (22-30) mmol/L BUN (7-17) mg/dL Creatinine (0.52-1.04) mg/dL Glucose (74-99) mg/dL POC Glucose (mg/dL) 175 H (75-99) mg/dL Microbiology - Last 24 Hours (Table) 03/26/18 14:55 Blood Culture - Preliminary Blood No Growth after 72 hours 03/26/18 12:19 Blood Culture - Preliminary Blood No Growth after 72 hours - Imaging and Cardiology Chest x-ray: report reviewed, image reviewed (Chest x-ray performed on 2017 reviewed and compared with prior x-ray with findings as noted above) Assessment and Plan Assessment: Bilateral basal pneumonia, with failed outpatient therapy Small right-sided pleural effusion Acute COPD exacerbation with baseline severe COPD Hypertension and hypertensive cardiovascular disease Acute on chronic hypoxic respirator failure on home oxygen Degenerative joint disease osteoarthritis Stage III chronic renal failure Plan: Continue breathing treatments Continue oral prednisone Ammann can be switched to Medrol Dosepak Continue supplemental oxygen Continue antibiotics, can be switched to oral doxycycline Deep breathing exercises incentive spirometry Repeat the chest x-ray to reassess the pleural effusion on the right side reviewed and compared significant improvement noted Further recommendations pending plan of care as per clinical response of patient would recommend to keep the patient and the hospital not ready for discharge discussed with the nursing staff at length as well as the patient, agree with discharge planning care plan discussed with the daughter present at bedside and patient at length as well Time with Patient: Greater than 30
[2018-03-30 15:03] LABS: Alt. alternata IgE Class CLASS 0; Alternaria alternata IgE <0.35 kU/L (<0.35); Asperg. fumagatus IgE <0.35 kU/L (<0.35); Asperg. fumagatus IgE Class CLASS 0; Bermuda Grass IgE <0.35 kU/L (<0.35); Birch(Com.Silvr) IgE <0.35 kU/L (<0.35); Birch(Com.Silvr) IgE Class CLASS 0; Cat Epith & Dander IgE 0.73 kU/L (<0.35); Cat Epith & Dander IgE Class CLASS II; Clad herbarum IgE <0.35 kU/L (<0.35); Cockroach IgE 0.57 kU/L (<0.35); Cottonwood IgE <0.35 kU/L (<0.35); Dermato. Pteronyssinus IgE 0.87 kU/L (<0.35); Dermato. farinae IgE 0.78 kU/L (<0.35); Dermato. farinae IgE Class CLASS II; Dog Dander IgE <0.35 kU/L (<0.35); Elm IgE <0.35 kU/L (<0.35); Maple (Box Elder) IgE <0.35 kU/L (<0.35); Maple (Box Elder) IgE Class CLASS 0; Mountain Cedar IgE <0.35 kU/L (<0.35); Mountain Cedar IgE Class CLASS 0; Mouse Urine IgE Class CLASS 0; Nettle IgE <0.35 kU/L (<0.35); Nettle IgE Class CLASS 0; Oak IgE <0.35 kU/L (<0.35); Penicillium notatum IgE Class CLASS 0; Rough Marshelder IgE <0.35 kU/L (<0.35); Rough Marshelder IgE Class CLASS 0; Timothy Grass IgE 3.01 kU/L (<0.35); White Ash IgE Class CLASS 0
[2018-03-30 18:57] LABS: Hemoglobin A1C 7.1 % (4.0-6.0)
--- NOTE | 2018-03-31 08:28 | DS ---
DISCHARGE SUMMARY DATE OF ADMISSION: 03/26/2018 DATE OF DISCHARGE: 03/30/2018 FINAL DIAGNOSES: 1. Acute severe chronic obstructive pulmonary disease exacerbation in a current smoker. 2. Chronic nicotine dependence, patient active cigarette smoker. 3. Essential hypertension. 4. Primary osteoarthritis of multiple joints. 5. Chronic hypoxic respiratory failure on home oxygen 2 L. 6. Hyperglycemia secondary to steroids. CONSULTATION: Dr. Nam Reyes. HOSPITAL COURSE: This patient who is a smoker presented with severe COPD exacerbation. Responded well to breathing treatments, steroids. Doing much better at the time of discharge. The patient is counseled against smoking. On examination, blood pressure 120/80. LUNGS: Decreased breath sounds. Minimal wheezing. PSYCH: AO x3. DISCHARGE MEDICATIONS: 1. Aspirin 81 mg a day. 2. Lipitor 40 mg at bedtime. 3. Symbicort 160/4.5 two puffs b.i.d. 4. Vitamin D3, 5000 units p.o. daily. 5. Plavix 75 mg a day. 6. Iron 325 p.o. daily. 7. Zestoretic 20/25 one tablet p.o. daily. 8. Tudorza 1 puff b.i.d. 9. Ventolin HFA 2 puffs q.6 p.r.n. 10.Calcium carbonate 1000 mg p.o. daily. 11.Fluocinonide 0.05% 1 dose both q.i.d. p.r.n. 12.Boniva 150 mg p.o. q. month. 13.Multivitamin 1 tablet p.o. daily. 14.Vibramycin 100 mg p.o. b.i.d. 15.DuoNeb q.i.d. 16.Singulair 10 mg at bedtime. 17.Nicotine 1 patch daily, strength 7. 18.Catapres 0.1 mg b.i.d. 19.Prednisone taper. Follow up with Dr. Thomson in 3 days. Follow up with Dr. Nam Reyes in one week. MMODL / IJN: [id number] /
[2018-03-31] MEDS ORDERED: ENOXAPARIN 30 MG/0.3 ML SYRINGE SQ SCH (09:00)
--- NOTE | 2018-04-01 10:22 | CDI ---
Documentation Clarification Form Date: 04/01/2018 10:02:02 AM From: IRCHIE Beard; Yanelis Palafox Curtain Cleaner Phone: If you have a question about this query, please contact Yanelis Palafox Curtain Cleaner at [phone] between 8am and 5pm. Admit Date: 03/26/2018 12:35:00 PM Patient Name: Elba Burnham Visit Number: [id number] Discharge Date: 03/30/2018 ATTENTION: The Clinical Documentation Specialists (CDI) and [facility] Coding Staff appreciate your assistance in clarifying documentation. Please respond to the clarification below the line at the bottom and electronically sign. The CDI & [facility] Coding staff will review the response and follow-up if needed. Please note: Queries are made part of the Legal Health Record. If you have any questions, please contact the author of this message via ITS. Harpreet Romano MD Patient presented with shortness of breath. COPD exacerbation is documented. The patients senior technical program manager was consulted and his assessment is bilateral basal pneumonia, failed outpatient therapy. History/Risk Factors: COPD, chronic respiratory failure on home O2. Clinical Indicators: WBC 9.3, shortness of breath, chest x-ray bibasilar infiltrates w/small right pleural effusion. Treatment: Levaquin, steroids and bronchodilators. Please clarify if you agree with the pulmonologists assessment of pneumonia? Pneumonia ruled in Pneumonia ruled out Other explanation of clinical findings Unable to determine (no explanation for clinical findings) See Discharge Summary MTDD
[2018-04-02 12:35] LABS: Alpha 1 Anti-Trypsin 159 mg/dL (90 - 200)
--- NOTE | 2018-04-04 14:29 | DS ---
DISCHARGE SUMMARY ADDENDUM: DATE OF ADMISSION: 03/26/2018 DATE OF DISCHARGE: 03/30/2018 FINAL DIAGNOSES: Acute severe chronic obstructive pulmonary disease exacerbation in a current smoker and bilateral pneumonia suspect gram-negative organism present on admission. MMODL / IJN: [id number] /
== END 2018-03-30 13:42 | disposition home or self-care (01) | DRG 178 ==
LOC: EC 11:13 → 4MS4W 12:35
PROVIDERS: ADMIT Hospitalist; ATTEND Hospitalist
DX: J15.6 Pneumonia due to other Gram-negative bacteria (principal); J44.0 Chronic obstructive pulmonary disease with (acute) lower respiratory infection; J45.901 Unspecified asthma with (acute) exacerbation; J90 Pleural effusion, not elsewhere classified; J96.11 Chronic respiratory failure with hypoxia; J44.1 Chronic obstructive pulmonary disease with (acute) exacerbation; M15.9 Polyosteoarthritis, unspecified; M19.91 Primary osteoarthritis, unspecified site; N18.3 Chronic kidney disease, stage 3 (moderate); T38.0X5A Adverse effect of glucocorticoids and synthetic analogues, initial encounter; Z79.02 Long term (current) use of antithrombotics/antiplatelets; Z79.51 Long term (current) use of inhaled steroids; Z79.82 Long term (current) use of aspirin; Z79.899 Other long term (current) drug therapy; Z82.49 Family history of ischemic heart disease and other diseases of the circulatory system; Z83.3 Family history of diabetes mellitus; Z86.73 Personal history of transient ischemic attack (TIA), and cerebral infarction without residual deficits; Z99.81 Dependence on supplemental oxygen; F17.210 Nicotine dependence, cigarettes, uncomplicated; I13.10 Hypertensive heart and chronic kidney disease without heart failure, with stage 1 through stage 4 chronic kidney disease, or unspecified chronic kidney disease
CPT/HCPCS: 36415; 71046; 80048; 80053; 82103; 82104; 82550; 82553; 82785; 83036; 83735; 83880; 84484; 85025; 85610; 85730; 86003; 87040; 93005; 94640; 94644; 94760; 96374; 99285

== ENCOUNTER 2018-04-02 16:34 | Inpatient (IN) | payer MEDICARE, BC ==
[2018-04-02] MEDS ORDERED: methylPREDNISolone SOD SUCCI 125 MG/2 ML VIAL IV STA (16:54)
[2018-04-02] MEDS ORDERED: IPRATROPIUM 0.5 MG/2.5 ML NEBU INHALATION STA (16:54)
[2018-04-02] MEDS ORDERED: ALBUTEROL NEBULIZED 2.5 MG/3 ML INHALATION STA (16:54)
[2018-04-02 17:13] LABS: Basophils % (A) 0 %; Eosinophils # (A) 0.1 k/uL (0-0.7); Eosinophils % (A) 0 %; HCT 39.2 % (34.0-46.0); HGB 13.1 gm/dL (11.4-16.0); Lymphocytes # (A) 0.4 k/uL (1.0-4.8); Lymphocytes % (A) 4 %; MCHC 33.3 g/dL (31.0-37.0); Mean Platelet Volume 6.8; Monocytes # (A) 0.3 k/uL (0-1.0); Monocytes % (A) 2 %; Neutrophils # (A) 10.7 k/uL (1.3-7.7); Neutrophils % (A) 93 %; Platelet Count 351 k/uL (150-450); RBC 4.08 m/uL (3.80-5.40); RDW 13.1 % (11.5-15.5); WBC 11.5 k/uL (3.8-10.6)
[2018-04-02 17:24] LABS: Albumin 3.8 g/dL (3.5-5.0); Calcium 8.4 mg/dL (8.4-10.2); Magnesium 2.2 mg/dL (1.6-2.3); Potassium 4.5 mmol/L (3.5-5.1); Total Bilirubin 0.5 mg/dL (0.2-1.3); Total Protein 6.4 g/dL (6.3-8.2)
[2018-04-02 17:31] LABS: Creatine Kinase 33 U/L (30-135)
[2018-04-02 17:45] LABS: Creatine Kinase MB 1.2 ng/mL (0.0-2.4); Troponin I <0.012 ng/mL (0.000-0.034)
[2018-04-02 17:46] LABS: Partial Thromboplastin Time 22.4 sec (22.0-30.0); Prothrombin Time 10.2 sec (9.0-12.0)
--- NOTE | 2018-04-02 18:16 | ED ---
General Adult HPI - General Chief complaint: Shortness of Breath Stated complaint: MARK Time Seen by Provider: 04/02/18 16:42 Source: patient, RN notes reviewed, old records reviewed Mode of arrival: wheelchair Limitations: no limitations - History of Present Illness Initial comments: 82-year-old female presents for evaluation of cough and dyspnea. Patient has history of COPD, she is on home oxygen. She was recently admitted approximately one week ago with pneumonia and COPD. She was discharged, she has felt improved. She continues to cough and made quite short of breath. Denies fever or chills. Denies chest pain. Denies lower extremity pain or swelling. Denies nausea or vomiting. - Related Data Home Medications Medication Instructions Recorded Confirmed Aspirin [Adult Low Dose Aspirin EC] 81 mg PO DAILY 11/30/17 04/02/18 Atorvastatin [Lipitor] 40 mg PO HS 11/30/17 04/02/18 Budesonide-Formot 160-4.5 Mcg 2 puff INHALATION RT-BID 11/30/17 04/02/18 [Symbicort 160-4.5 Mcg Inhaler] Cholecalciferol [Vitamin D3] 5,000 unit PO DAILY 11/30/17 04/02/18 Clopidogrel Bisulfate [Plavix] 75 mg PO DAILY 11/30/17 04/02/18 Ferrous Sulfate [Iron (65 MG 325 mg PO DAILY 11/30/17 04/02/18 Elemental)] Lisinopril-Hctz 20-25 mg 2 tab PO DAILY 11/30/17 04/02/18 [Zestoretic 20-25] Aclidinium [place] [Tudorza 1 puff PO RT-BID 03/26/18 04/02/18 Pressair] Albuterol Inhaler [Ventolin Hfa 2 puff INHALATION RT-Q6H PRN 03/26/18 04/02/18 Inhaler] Calcium Carbonate 1,000 mg PO DAILY 03/26/18 04/02/18 Fluocinonide 0.05% Soln 1 dose BOTH EARS QID PRN 03/26/18 04/02/18 Ibandronate Sodium [Boniva] 150 mg PO QMONTH 03/26/18 04/02/18 Multivitamins, Thera [Multivitamin 1 tab PO DAILY 03/26/18 04/02/18 (formulary)] Ipratropium-Albuterol Nebulize 3 ml INHALATION RT-QID 04/02/18 04/02/18 [Duoneb 0.5 mg-3 mg/3 ml Soln] Previous Rx's Medication Instructions Recorded Doxycycline Hyclate [Vibramycin] 100 mg PO BID #10 capsule 03/30/18 Montelukast [Singulair] 10 mg PO HS #30 tab 03/30/18 cloNIDine HCL [Catapres] 0.1 mg PO BID #60 tab 03/30/18 predniSONE 10 mg PO DAILY #30 tab 03/30/18 Allergies Allergy/AdvReac Type Severity Reaction Status Date / Time No Known Allergies Allergy Verified 04/02/18 16:38 Review of Systems ROS Statement: Those systems with pertinent positive or pertinent negative responses have been documented in the HPI. ROS Other: All systems not noted in ROS Statement are negative. Past Medical History Past Medical History: COPD, CVA/TIA, Hypertension, Osteoarthritis (OA), Pneumonia, Vascular Disorder Additional Past Medical History / Comment(s): Jul 2017-seizure in [facility], stroke 01/20-no effects, arthritis in neck, "dermatitis in [place] ears", oxygen 2L at night. pt stated has a pne vaccine few years ago at a dr office she no longer goes to -senior writer unable to verify date at time of this admit. History of Any Multi-Drug Resistant Organisms: None Reported Additional Past Surgical History / Comment(s): [place] carotid endarterectomy, [place] cataracts, angiogram/arthrectomy/balloon angioplasty rt sfa Past Anesthesia/Blood Transfusion Reactions: No Reported Reaction Past Psychological History: No Psychological Hx Reported Smoking Status: Current every day smoker Past Alcohol Use History: None Reported Past Drug Use History: None Reported - Past Family History Daughter(s) Family Medical History: Cancer Father Additional Family Medical History / Comment(s): brain anuerysm Mother Family Medical History: Diabetes Mellitus General Exam Limitations: no limitations General appearance: alert, in no apparent distress Head exam: Present: atraumatic, normocephalic Eye exam: Present: normal appearance, PERRL ENT exam: Present: normal exam Neck exam: Present: normal inspection. Absent: tenderness Respiratory exam: Present: respiratory distress, wheezes, rhonchi Cardiovascular Exam: Present: regular rate, normal rhythm GI/Abdominal exam: Present: soft. Absent: distended, tenderness, guarding Extremities exam: Present: normal inspection, normal capillary refill. Absent: pedal edema, calf tenderness Neurological exam: Present: alert, oriented X3, CN II-XII intact. Absent: motor sensory deficit Psychiatric exam: Present: normal affect, normal mood Skin exam: Present: warm, dry, intact. Absent: cyanosis, diaphoretic Course Vital Signs 04/02/18 04/02/18 04/02/18 16:36 17:23 17:39 Temperature 98.2 F Pulse Rate 84 84 75 Respiratory 20 Rate Blood Pressure 165/71 O2 Sat by Pulse 87 L Oximetry 04/02/18 04/02/18 04/02/18 18:00 19:00 19:36 Temperature 97.1 F L Pulse Rate 80 85 83 Respiratory 20 20 18 Rate Blood Pressure 137/59 93/40 O2 Sat by Pulse 96 95 92 L Oximetry - Reevaluation(s) Reevaluation #1: 04/02/18 1840 Reevaluation, patient has continued dyspnea with wheezing throughout. EKG Findings - EKG Comments: EKG Findings:: EKG: Normal sinus rhythm, possible left atrial enlargement with left ventricular hypertrophy, no ST segment elevation, rate of 78, OR interval 134, QRS duration 84, QTC 419 Medical Decision Making - Medical Decision Making 82-year-old female history of COPD presenting with cough and dyspnea. Patient was admitted recently with pneumonia and COPD. She has failed to improve at home. She has significant dyspnea on initial evaluation with wheezing throughout. She is afebrile and otherwise well-appearing. Chest x-ray obtained , negative for focal pneumonia. Normal CBC and CMP, troponin and BNP are negative. Patient will be admitted for further treatment of COPD exacerbation, failed outpatient treatment, pulmonology on consult. - Lab Data Result diagrams: 04/02/18 17:00 04/02/18 17:00 Lab Results 04/02/18 04/02/18 04/02/18 Range/Units 17:00 17:00 17:00 WBC 11.5 H (3.8-10.6) k/uL RBC 4.08 (3.80-5.40) m/uL Hgb 13.1 (11.4-16.0) gm/dL Hct 39.2 (34.0-46.0) % MCV 96.0 (80.0-100.0) fL MCH 32.0 (25.0-35.0) pg MCHC 33.3 (31.0-37.0) g/dL RDW 13.1 (11.5-15.5) % Plt Count 351 (150-450) k/uL Neutrophils % 93 % Lymphocytes % 4 % Monocytes % 2 % Eosinophils % 0 % Basophils % 0 % Neutrophils # 10.7 H (1.3-7.7) k/uL Lymphocytes # 0.4 L (1.0-4.8) k/uL Monocytes # 0.3 (0-1.0) k/uL Eosinophils # 0.1 (0-0.7) k/uL Basophils # 0.0 (0-0.2) k/uL PT (9.0-12.0) sec INR (<1.2) APTT (22.0-30.0) sec Sodium 135 L (137-145) mmol/L Potassium 4.5 (3.5-5.1) mmol/L Chloride 99 (98-107) mmol/L Carbon Dioxide 28 (22-30) mmol/L Anion Gap 8 mmol/L BUN 45 H (7-17) mg/dL Creatinine 0.91 (0.52-1.04) mg/dL Est GFR (CKD-EPI)AfAm 68 (>60 ml/min/1.73 sqM) Est GFR (CKD-EPI)NonAf 59 (>60 ml/min/1.73 sqM) Glucose 161 H (74-99) mg/dL Plasma Lactic Acid Manish (0.7-2.0) mmol/L Calcium 8.4 (8.4-10.2) mg/dL Magnesium 2.2 (1.6-2.3) mg/dL Total Bilirubin 0.5 (0.2-1.3) mg/dL AST 21 (14-36) U/L ALT 35 (9-52) U/L Alkaline Phosphatase 72 (38-126) U/L Total Creatine Kinase 33 (30-135) U/L CK-MB (CK-2) 1.2 (0.0-2.4) ng/mL CK-MB (CK-2) Rel Index 3.6 Troponin I <0.012 (0.000-0.034) ng/mL NT-Pro-B Natriuret Pep pg/mL Total Protein 6.4 (6.3-8.2) g/dL Albumin 3.8 (3.5-5.0) g/dL 04/02/18 04/02/18 04/02/18 Range/Units 17:00 17:00 17:00 WBC (3.8-10.6) k/uL RBC (3.80-5.40) m/uL Hgb (11.4-16.0) gm/dL Hct (34.0-46.0) % MCV (80.0-100.0) fL MCH (25.0-35.0) pg MCHC (31.0-37.0) g/dL RDW (11.5-15.5) % Plt Count (150-450) k/uL Neutrophils % % Lymphocytes % % Monocytes % % Eosinophils % % Basophils % % Neutrophils # (1.3-7.7) k/uL Lymphocytes # (1.0-4.8) k/uL Monocytes # (0-1.0) k/uL Eosinophils # (0-0.7) k/uL Basophils # (0-0.2) k/uL PT 10.2 (9.0-12.0) sec INR 1.0 (<1.2) APTT 22.4 (22.0-30.0) sec Sodium (137-145) mmol/L Potassium (3.5-5.1) mmol/L Chloride (98-107) mmol/L Carbon Dioxide (22-30) mmol/L Anion Gap mmol/L BUN (7-17) mg/dL Creatinine (0.52-1.04) mg/dL Est GFR (CKD-EPI)AfAm (>60 ml/min/1.73 sqM) Est GFR (CKD-EPI)NonAf (>60 ml/min/1.73 sqM) Glucose (74-99) mg/dL Plasma Lactic Acid Manish 0.9 (0.7-2.0) mmol/L Calcium (8.4-10.2) mg/dL Magnesium (1.6-2.3) mg/dL Total Bilirubin (0.2-1.3) mg/dL AST (14-36) U/L ALT (9-52) U/L Alkaline Phosphatase (38-126) U/L Total Creatine Kinase (30-135) U/L CK-MB (CK-2) (0.0-2.4) ng/mL CK-MB (CK-2) Rel Index Troponin I (0.000-0.034) ng/mL NT-Pro-B Natriuret Pep 268 pg/mL Total Protein (6.3-8.2) g/dL Albumin (3.5-5.0) g/dL Disposition Clinical Impression: Failure of outpatient treatment, Acute exacerbation of chronic obstructive airways disease Disposition: ADMITTED IP TO THIS HOSP Condition: Stable Is patient prescribed a controlled substance at d/c from ED?: No Decision to Admit Reason: Admit from [facility] Decision Date: 04/02/18 Decision Time: 18:30
--- NOTE | 2018-04-02 18:45 | XR ---
EXAMINATION TYPE: XR chest 2V DATE OF EXAM: 04/02/2018 COMPARISON: 03/29/2018 HISTORY: Difficulty breathing TECHNIQUE: Frontal and lateral views of the chest are obtained. FINDINGS: There is no heart failure nor confluent pneumonic infiltrate. There is slight blunting of left costophrenic angle. Thoracic aorta is atheromatous. Lungs are clear of consolidation. Bony thora x is intact. IMPRESSION: There is mild pleural reaction at the left lung base similar to old exam. No heart fail ure.
[2018-04-02] MEDS ORDERED: IPRATROPIUM-ALBUTEROL 3 ML NEB INHALATION PRN (18:55)
[2018-04-02] MEDS: IPRATROPIUM-ALBUTEROL 3 ML NEB INHALATION SCH (21:19)
[2018-04-02 21:40] VITALS: BMI 25.4
[2018-04-02] MEDS: ATORVASTATIN 40 MG TAB PO SCH (21:42)
[2018-04-02] MEDS: MONTELUKAST 10 MG TAB PO SCH (21:42)
[2018-04-02] MEDS: cloNIDine HCL 0.1 MG TAB PO SCH (21:44)
--- NOTE | 2018-04-03 00:03 | P.CNPUL ---
History of Present Illness Consult date: 04/02/18 Reason for consult: dyspnea, cough, COPD Chief complaint: Shortness of breath History of present illness: 82-year-old female who was seen evaluated examined on fifth floor this patient has chronic hypoxic respirator failure has been on home oxygen patient developed problems increased cuff congestion shortness of breath about a week ago has been progressive came into the emergency department seen evaluated examined and admitted into the hospital, she does have a significant history of the seizure disorder and stroke about a year ago, patient is still actively smoking Review of Systems All systems: negative Past Medical History Past Medical History: COPD, CVA/TIA, Hypertension, Osteoarthritis (OA), Pneumonia, Vascular Disorder Additional Past Medical History / Comment(s): Jul 2017-seizure in [place], stroke 01/20-no effects, arthritis in neck, "dermatitis in guillermo ears", oxygen 2L at night. 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 History of Any Multi-Drug Resistant Organisms: None Reported Additional Past Surgical History / Comment(s): guillermo carotid endarterectomy, guillermo cataracts, angiogram/arthrectomy/balloon angioplasty rt sfa Past Anesthesia/Blood Transfusion Reactions: No Reported Reaction Past Psychological History: No Psychological Hx Reported Additional Psychological History / Comment(s): pt lives alone in own home. no home care services, has 02 2 liters n/c at hs and a nebulizer. Smoking Status: Current every day smoker Past Alcohol Use History: None Reported Additional Past Alcohol Use History / Comment(s): started smoking age 17, now 5 cigarettes daily Past Drug Use History: None Reported - Past Family History Daughter(s) Family Medical History: Cancer Father Additional Family Medical History / Comment(s): brain anuerysm Mother Family Medical History: Diabetes Mellitus Medications and Allergies Home Medications Medication Instructions Recorded Confirmed Type Aspirin [Adult Low Dose Aspirin EC] 81 mg PO DAILY 11/30/17 04/02/18 History Atorvastatin [Lipitor] 40 mg PO HS 11/30/17 04/02/18 History Budesonide-Formot 160-4.5 Mcg 2 puff INHALATION RT-BID 11/30/17 04/02/18 History [Symbicort 160-4.5 Mcg Inhaler] Cholecalciferol [Vitamin D3] 5,000 unit PO DAILY 11/30/17 04/02/18 History Clopidogrel Bisulfate [Plavix] 75 mg PO DAILY 11/30/17 04/02/18 History Ferrous Sulfate [Iron (65 MG 325 mg PO DAILY 11/30/17 04/02/18 History Elemental)] Lisinopril-Hctz 20-25 mg 2 tab PO DAILY 11/30/17 04/02/18 History [Zestoretic 20-25] Aclidinium [place] [Tudorza 1 puff PO RT-BID 03/26/18 04/02/18 History Pressair] Albuterol Inhaler [Ventolin Hfa 2 puff INHALATION RT-Q6H PRN 03/26/18 04/02/18 History Inhaler] Calcium Carbonate 1,000 mg PO DAILY 03/26/18 04/02/18 History Fluocinonide 0.05% Soln 1 dose BOTH EARS QID PRN 03/26/18 04/02/18 History Ibandronate Sodium [Boniva] 150 mg PO QMONTH 03/26/18 04/02/18 History Multivitamins, Thera [Multivitamin 1 tab PO DAILY 03/26/18 04/02/18 History (formulary)] Doxycycline Hyclate [Vibramycin] 100 mg PO BID #10 capsule 03/30/18 04/02/18 Rx Montelukast [Singulair] 10 mg PO HS #30 tab 03/30/18 04/02/18 Rx cloNIDine HCL [Catapres] 0.1 mg PO BID #60 tab 03/30/18 04/02/18 Rx predniSONE 10 mg PO DAILY #30 tab 03/30/18 04/02/18 Rx Ipratropium-Albuterol Nebulize 3 ml INHALATION RT-QID 04/02/18 04/02/18 History [Duoneb 0.5 mg-3 mg/3 ml Soln] Allergies Allergy/AdvReac Type Severity Reaction Status Date / Time No Known Allergies Allergy Verified 04/02/18 16:38 Physical Exam Vitals: Vital Signs Temp Pulse Pulse Resp BP BP Pulse Ox 04/02/18 23:00 96.9 F L 90 20 117/60 92 L 04/02/18 21:30 86 04/02/18 21:21 84 04/02/18 19:36 97.1 F L 83 18 93/40 92 L 04/02/18 19:00 85 20 137/59 95 04/02/18 18:00 80 20 96 04/02/18 17:39 75 04/02/18 17:23 84 04/02/18 16:36 98.2 F 84 20 165/71 87 L Intake and Output 04/02/18 04/02/18 04/03/18 14:59 22:59 06:59 Other: Voiding Method Toilet Weight 63 kg General appearance: alert, in no apparent distress Head exam: Present: atraumatic, normocephalic Eye exam: Present: normal appearance, PERRL ENT exam: Present: normal exam Neck exam: Present: normal inspection. Absent: tenderness Respiratory exam: Present: respiratory distress, wheezes, rhonchi Cardiovascular Exam: Present: regular rate, normal rhythm GI/Abdominal exam: Present: soft. Absent: distended, tenderness, guarding Extremities exam: Present: normal inspection, normal capillary refill. Absent: pedal edema, calf tenderness Neurological exam: Present: alert, oriented X3, CN II-XII intact. Absent: motor sensory deficit Psychiatric exam: Present: normal affect, normal mood Skin exam: Present: warm, dry, intact. Absent: cyanosis, diaphoretic Results - Laboratory Findings CBC and BMP: 04/02/18 17:00 04/02/18 17:00 PT/INR, D-dimer PT 10.2 sec (9.0-12.0) 04/02/18 17:00 INR 1.0 (<1.2) 04/02/18 17:00 Abnormal lab findings: Abnormal Labs 04/02/18 04/02/18 17:00 17:00 WBC 11.5 H Neutrophils # 10.7 H Lymphocytes # 0.4 L Sodium 135 L BUN 45 H Glucose 161 H - Diagnostic Findings Chest x-ray: report reviewed, image reviewed Assessment and Plan Assessment: Acute COPD exacerbation Acute on chronic hypoxic respirator failure History of recent pneumonia Hypertension hypertensive cardiovascular disease Dyslipidemia History of prior stroke Chronic anemia Plan: Bronchodilator Continue home medications Broad spectrum antibiotics IV steroids Peptic ulcer disease prophylaxis and DVT prophylaxis Further recommendations pending plan of care as per clinical response of the patient Time with Patient: Greater than 30
[2018-04-03] MEDS: methylPREDNISolone SOD SUCCI 125 MG/2 ML VIAL IV SCH ×5 (00:54→23:37)
[2018-04-03] MEDS: IPRATROPIUM-ALBUTEROL 3 ML NEB INHALATION SCH ×4 (07:31→20:55)
[2018-04-03] MEDS: cloNIDine HCL 0.1 MG TAB PO SCH ×2 (08:25→20:39)
[2018-04-03] MEDS: LISINOPRIL-HCTZ 20-25 MG 1 EACH TAB PO SCH (08:25)
[2018-04-03] MEDS: ASPIRIN 81 MG PO SCH (08:26)
[2018-04-03] MEDS: CLOPIDOGREL 75 MG TAB PO SCH (08:26)
[2018-04-03] MEDS ORDERED: LEVOFLOXACIN 500 MG TAB PO SCH (09:00)
--- NOTE | 2018-04-03 09:25 | P.PN ---
Subjective Progress Note Date: 04/03/18 Principal diagnosis: Acute COPD exacerbation, acute on chronic hypoxic respirator failure, recent pneumonia, hypertension hypertensive cardiovascular disease, dyslipidemia, history of CVA, chronic anemia 04/03/2018, patient seen eval reexamined during the rounds clinically still very short of breath have difficult time and moving around cannot take more than 3 or 4 steps, chest x-ray failed to reveal any significant new changes small pleural effusion on the left side cannot be excluded no new pneumonia is seen suspect current changes are due to COPD exacerbation, patient however require slight higher FiO2 baseline is 3 L now she is on 5 L nasal cannula with that she feels slightly better off of oxygen sats drop down into mid 80s to low 80s Amgary would recommend to do a d-dimer if elevated consider doing a spiral CT scan of the chest Amgary will put patient on DVT and peptic ulcer disease prophylaxis as well 82-year-old female who was seen evaluated examined on fifth floor this patient has chronic hypoxic respirator failure has been on home oxygen patient developed problems increased cuff congestion shortness of breath about a week ago has been progressive came into the emergency department seen evaluated examined and admitted into the hospital, she does have a significant history of the seizure disorder and stroke about a year ago, patient is still actively smoking Objective - Vital Signs Vital signs: Vital Signs Temp 97.3 F L 04/03/18 07:53 Pulse 104 H 04/03/18 07:53 Resp 20 04/03/18 07:53 BP 166/78 04/03/18 07:53 Pulse Ox 88 L 04/03/18 07:53 Intake & Output 04/02/18 04/03/18 04/03/18 18:59 06:59 18:59 Weight 63.049 kg 63 kg Other: Voiding Method Toilet # Voids 0 - Exam General appearance: alert, in no apparent distress Head exam: Present: atraumatic, normocephalic Eye exam: Present: normal appearance, PERRL ENT exam: Present: normal exam Neck exam: Present: normal inspection. Absent: tenderness Respiratory exam: Present: respiratory distress, wheezes, rhonchi Cardiovascular Exam: Present: regular rate, normal rhythm GI/Abdominal exam: Present: soft. Absent: distended, tenderness, guarding Extremities exam: Present: normal inspection, normal capillary refill. Absent: pedal edema, calf tenderness Neurological exam: Present: alert, oriented X3, CN II-XII intact. Absent: motor sensory deficit Psychiatric exam: Present: normal affect, normal mood Skin exam: Present: warm, dry, intact. Absent: cyanosis, diaphoretic - Labs CBC & Chem 7: 04/02/18 17:00 04/02/18 17:00 Labs: Abnormal Lab Results - Last 24 Hours (Table) 04/02/18 04/02/18 Range/Units 17:00 17:00 WBC 11.5 H (3.8-10.6) k/uL Neutrophils # 10.7 H (1.3-7.7) k/uL Lymphocytes # 0.4 L (1.0-4.8) k/uL Sodium 135 L (137-145) mmol/L BUN 45 H (7-17) mg/dL Glucose 161 H (74-99) mg/dL Assessment and Plan Assessment: Acute COPD exacerbation Acute on chronic hypoxic respirator failure, with higher FiO2 requirement than baseline History of recent pneumonia Hypertension hypertensive cardiovascular disease Dyslipidemia History of prior stroke Chronic anemia Plan: Check d-dimer, ordered if elevated obtain a spiral CT scan of the chest to rule out pulmonary embolism Bronchodilator Continue home medications Broad spectrum antibiotics IV steroids Peptic ulcer disease prophylaxis and DVT prophylaxis Further recommendations pending plan of care as per clinical response of the patient Time with Patient: Greater than 30
[2018-04-03] MEDS: HEPARIN SODIUM,PORCINE 5,000 UNIT/ML 1 ML VIAL SQ SCH ×2 (10:00→20:46)
--- NOTE | 2018-04-03 11:07 | P.HPIM ---
History of Present Illness 82-year-old female with known history of COPD chronic hypoxic and hypercapnic respiratory failure uses 3 L of onset at home does haven't Vancil COPD was discharged from hospital couple days ago went home started smoking again came in with increased shortness of breath last night unable to bring up anything. Comparing of cough chest x-ray showed some pleural reaction without any significant infiltrate. Patient was started on levofloxacin, patient was discharged on doxycycline. Patient denied any fever chills patient denied any chest pain. Review of Systems REVIEW OF SYSTEMS: CONSTITUTIONAL: No fever, no malaise, no fatigue. HEENT: No recent visual problems or hearing problems. Denied any sore throat. CARDIOVASCULAR: No chest pain, orthopnea, PND, no palpitations, no syncope. PULMONARY: no hemoptysis. GASTROINTESTINAL: No diarrhea, no nausea, no vomiting, no abdominal pain. Normoactive bowel sounds. NEUROLOGICAL: No headaches, no weakness, no numbness. HEMATOLOGICAL: Denies any bleeding or petechiae. GENITOURINARY: Denies any burning micturition, frequency, or urgency. MUSCULOSKELETAL/RHEUMATOLOGICAL: Denies any joint pain, swelling, or any muscle pain. ENDOCRINE: Denies any polyuria or polydipsia. The rest of the 14-point review of systems is negative. Past Medical History Past Medical History: COPD, CVA/TIA, Hypertension, Osteoarthritis (OA), Pneumonia, Vascular Disorder Additional Past Medical History / Comment(s): Jul 2017-seizure in [place], stroke 01/20-no effects, arthritis in neck, "dermatitis in [place] ears", oxygen 2L at night. 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 History of Any Multi-Drug Resistant Organisms: None Reported Additional Past Surgical History / Comment(s): guillermo carotid endarterectomy, guillermo cataracts, angiogram/arthrectomy/balloon angioplasty rt sfa Past Anesthesia/Blood Transfusion Reactions: No Reported Reaction Past Psychological History: No Psychological Hx Reported Additional Psychological History / Comment(s): pt lives alone in own home. no home care services, has 02 2 liters n/c at [facility] and a nebulizer. Smoking Status: Current every day smoker Past Alcohol Use History: None Reported Additional Past Alcohol Use History / Comment(s): started smoking age 17, now 5 cigarettes daily Past Drug Use History: None Reported - Past Family History Daughter(s) Family Medical History: Cancer Father Additional Family Medical History / Comment(s): brain anuerysm Mother Family Medical History: Diabetes Mellitus Medications and Allergies Home Medications Medication Instructions Recorded Confirmed Type Aspirin [Adult Low Dose Aspirin EC] 81 mg PO DAILY 11/30/17 04/02/18 History Atorvastatin [Lipitor] 40 mg PO HS 11/30/17 04/02/18 History Budesonide-Formot 160-4.5 Mcg 2 puff INHALATION RT-BID 11/30/17 04/02/18 History [Symbicort 160-4.5 Mcg Inhaler] Cholecalciferol [Vitamin D3] 5,000 unit PO DAILY 11/30/17 04/02/18 History Clopidogrel Bisulfate [Plavix] 75 mg PO DAILY 11/30/17 04/02/18 History Ferrous Sulfate [Iron (65 MG 325 mg PO DAILY 11/30/17 04/02/18 History Elemental)] Lisinopril-Hctz 20-25 mg 2 tab PO DAILY 11/30/17 04/02/18 History [Zestoretic 20-25] Aclidinium [place] [Tudorza 1 puff PO RT-BID 03/26/18 04/02/18 History Pressair] Albuterol Inhaler [Ventolin Hfa 2 puff INHALATION RT-Q6H PRN 03/26/18 04/02/18 History Inhaler] Calcium Carbonate 1,000 mg PO DAILY 03/26/18 04/02/18 History Fluocinonide 0.05% Soln 1 dose BOTH EARS QID PRN 03/26/18 04/02/18 History Ibandronate Sodium [Boniva] 150 mg PO QMONTH 03/26/18 04/02/18 History Multivitamins, Thera [Multivitamin 1 tab PO DAILY 03/26/18 04/02/18 History (formulary)] Doxycycline Hyclate [Vibramycin] 100 mg PO BID #10 capsule 03/30/18 04/02/18 Rx Montelukast [Singulair] 10 mg PO HS #30 tab 03/30/18 04/02/18 Rx cloNIDine HCL [Catapres] 0.1 mg PO BID #60 tab 03/30/18 04/02/18 Rx predniSONE 10 mg PO DAILY #30 tab 03/30/18 04/02/18 Rx Ipratropium-Albuterol Nebulize 3 ml INHALATION RT-QID 04/02/18 04/02/18 History [Duoneb 0.5 mg-3 mg/3 ml Soln] Allergies Allergy/AdvReac Type Severity Reaction Status Date / Time No Known Allergies Allergy Verified 04/02/18 16:38 Physical Exam Vitals: Vital Signs Temp Pulse Pulse Resp BP BP Pulse Ox 04/03/18 07:53 97.3 F L 104 H 20 166/78 88 L 04/03/18 07:42 91 04/03/18 07:33 94 89 L 04/02/18 23:00 96.9 F L 90 20 117/60 92 L 04/02/18 21:30 86 04/02/18 21:21 84 04/02/18 19:36 97.1 F L 83 18 93/40 92 L 04/02/18 19:00 85 20 137/59 95 04/02/18 18:00 80 20 96 04/02/18 17:39 75 04/02/18 17:23 84 04/02/18 16:36 98.2 F 84 20 165/71 87 L Intake and Output 04/02/18 04/03/18 04/03/18 22:59 06:59 14:59 Other: Voiding Method Toilet # Voids 0 Weight 63 kg PHYSICAL EXAMINATION: GENERAL: The patient is alert and oriented x3, not in any acute distress. Well developed, well nourished. HEENT: Pupils are round and equally reacting to light. EOMI. No scleral icterus. No conjunctival pallor. Normocephalic, atraumatic. No pharyngeal erythema. No thyromegaly. CARDIOVASCULAR: S1 and S2 present. No murmurs, rubs, or gallops. PULMONARY: Limited air entry into bilateral lung tracy significant expiratory wheezing on exam. ABDOMEN: Soft, nontender, nondistended, normoactive bowel sounds. No palpable organomegaly. MUSCULOSKELETAL: No joint swelling or deformity. EXTREMITIES: No cyanosis, clubbing, or pedal edema. NEUROLOGICAL: Gross neurological examination did not reveal any focal deficits. SKIN: No rashes. Results CBC & Chem 7: 04/02/18 17:00 04/02/18 17:00 Labs: Abnormal Lab Results - Last 24 Hours (Table) 04/02/18 04/02/18 Range/Units 17:00 17:00 WBC 11.5 H (3.8-10.6) k/uL Neutrophils # 10.7 H (1.3-7.7) k/uL Lymphocytes # 0.4 L (1.0-4.8) k/uL Sodium 135 L (137-145) mmol/L BUN 45 H (7-17) mg/dL Glucose 161 H (74-99) mg/dL Thrombosis Risk Factor Assmnt - Choose All That Apply Each Factor Represents 1 point: Abnormal pulmonary function (COPD) Each Risk Factor Represents 3 Points: Age 75 years or older Thrombosis Risk Factor Assessment Total Risk Factor Score: 4 Thrombosis Risk Factor Assessment Level: Moderate Risk Assessment and Plan Plan: Acute on chronic hypercapnic respiratory failure secondary to COPD exacerbation and use to smoke: Extensive smoking cessation counseling was provided patient was started on systemic steroids and inhalational treatments pulmonology evaluated the patient patient is presently on levofloxacin and placed on treatments. -Essential hypertension -Hyperlipidemia -History of previous strokes -Chronic anemia and anemia of chronic disease
[2018-04-03 11:34] LABS: Glucose,Whole Blood 231 mg/dL (75-99)
[2018-04-03] MEDS: INSULIN ASPART 100 UNIT/ML 1 ML 10 ML VIAL SQ SCH ×3 (13:26→20:46)
[2018-04-03 17:12] LABS: Glucose,Whole Blood 133 mg/dL (75-99)
[2018-04-03] MEDS: ATORVASTATIN 40 MG TAB PO SCH (20:38)
[2018-04-03] MEDS: MONTELUKAST 10 MG TAB PO SCH (20:39)
[2018-04-03 20:43] LABS: Glucose,Whole Blood 212 mg/dL (75-99)
[2018-04-04] MEDS: methylPREDNISolone SOD SUCCI 125 MG/2 ML VIAL IV SCH ×3 (06:38→17:22)
[2018-04-04 07:19] LABS: Glucose,Whole Blood 199 mg/dL (75-99)
[2018-04-04] MEDS: IPRATROPIUM-ALBUTEROL 3 ML NEB INHALATION SCH ×4 (07:54→20:35)
[2018-04-04] MEDS: INSULIN ASPART 100 UNIT/ML 1 ML 10 ML VIAL SQ SCH ×4 (08:22→21:08)
[2018-04-04] MEDS: ASPIRIN 81 MG PO SCH (08:23)
[2018-04-04] MEDS: PANTOPRAZOLE 40 MG TABLET PO SCH (08:23)
[2018-04-04] MEDS: CLOPIDOGREL 75 MG TAB PO SCH (08:23)
[2018-04-04] MEDS: LEVOFLOXACIN 250 MG TAB PO SCH (08:23)
[2018-04-04] MEDS: cloNIDine HCL 0.1 MG TAB PO SCH (08:23)
[2018-04-04] MEDS: HEPARIN SODIUM,PORCINE 5,000 UNIT/ML 1 ML VIAL SQ SCH ×2 (08:23→21:08)
[2018-04-04] MEDS: LISINOPRIL-HCTZ 20-25 MG 1 EACH TAB PO SCH (08:24)
--- NOTE | 2018-04-04 09:15 | P.PN ---
Subjective Progress Note Date: 04/04/18 Principal diagnosis: Acute COPD exacerbation, acute on chronic hypoxic respirator failure, recent pneumonia, hypertension hypertensive cardiovascular disease, dyslipidemia, history of CVA, chronic anemia 04/04/2018, patient seen eval examined during the rounds clinically patient is still short of breath cough congestion get symptomatic with 2-3 steps predominantly cough is dry and nonproductive denies any chest pain or radiation of pain though appetite and sleep however has improved a bit 04/03/2018, patient seen eval reexamined during the rounds clinically still very short of breath have difficult time and moving around cannot take more than 3 or 4 steps, chest x-ray failed to reveal any significant new changes small pleural effusion on the left side cannot be excluded no new pneumonia is seen suspect current changes are due to COPD exacerbation, patient however require slight higher FiO2 baseline is 3 L now she is on 5 L nasal cannula with that she feels slightly better off of oxygen sats drop down into mid 80s to low 80s Amgary would recommend to do a d-dimer if elevated consider doing a spiral CT scan of the chest Amgary will put patient on DVT and peptic ulcer disease prophylaxis as well 82-year-old female who was seen evaluated examined on fifth floor this patient has chronic hypoxic respirator failure has been on home oxygen patient developed problems increased cuff congestion shortness of breath about a week ago has been progressive came into the emergency department seen evaluated examined and admitted into the hospital, she does have a significant history of the seizure disorder and stroke about a year ago, patient is still actively smoking Objective - Vital Signs Vital signs: Vital Signs Temp 99.3 F 04/04/18 07:00 Pulse 76 04/04/18 08:56 Resp 20 04/04/18 07:00 BP 116/50 04/04/18 07:00 Pulse Ox 95 04/04/18 07:00 Intake & Output 04/03/18 04/04/18 04/04/18 18:59 06:59 18:59 Intake Total 1200 300 200 Balance 1200 300 200 Intake: Oral 1200 300 200 Other: Voiding Method Toilet Toilet # Voids 1 1 - Exam General appearance: alert, in no apparent distress Head exam: Present: atraumatic, normocephalic Eye exam: Present: normal appearance, PERRL ENT exam: Present: normal exam Neck exam: Present: normal inspection. Absent: tenderness Respiratory exam: Present: respiratory distress, wheezes, rhonchi Cardiovascular Exam: Present: regular rate, normal rhythm GI/Abdominal exam: Present: soft. Absent: distended, tenderness, guarding Extremities exam: Present: normal inspection, normal capillary refill. Absent: pedal edema, calf tenderness Neurological exam: Present: alert, oriented X3, CN II-XII intact. Absent: motor sensory deficit Psychiatric exam: Present: normal affect, normal mood Skin exam: Present: warm, dry, intact. Absent: cyanosis, diaphoretic - Labs CBC & Chem 7: 04/02/18 17:00 04/02/18 17:00 Labs: Abnormal Lab Results - Last 24 Hours (Table) 04/03/18 04/03/18 04/03/18 Range/Units 11:19 16:49 20:41 POC Glucose (mg/dL) 231 H 133 H 212 H (75-99) mg/dL 04/04/18 Range/Units 07:16 POC Glucose (mg/dL) 199 H (75-99) mg/dL Microbiology - Last 24 Hours (Table) 04/02/18 17:00 Blood Culture - Preliminary Blood No Growth after 24 hours Assessment and Plan Assessment: Acute COPD exacerbation Acute on chronic hypoxic respirator failure, with higher FiO2 requirement than baseline History of recent pneumonia Hypertension hypertensive cardiovascular disease Dyslipidemia History of prior stroke Chronic anemia Plan: Check d-dimer within normal limit, will hold on computed tomography scan of the chest as likelihood of pulmonary embolism is low hypoxia likely is related to COPD exacerbation Bronchodilator Continue home medications Broad spectrum antibiotics IV steroids Peptic ulcer disease prophylaxis and DVT prophylaxis Further recommendations pending plan of care as per clinical response of the patient Time with Patient: Greater than 30
[2018-04-04 12:02] LABS: Glucose,Whole Blood 242 mg/dL (75-99)
--- NOTE | 2018-04-04 14:26 | P.PN ---
Subjective Patient still feels congested although patient's saturations improved and the air entry into bilateral lung tracy and wheezing did improve. Patient is admitted for acute on chronic hypercapnic respiratory failure secondary to COPD exacerbation patient can use to smoke and systemic steroids inhalational treatments and levofloxacin at this time. No pneumonia. Constitutional: Denied any fatigue denied any fever. Cardio vascular: denied any chest pain, palpitations Gastrointestinal denied any nausea vomiting Pulmonary: As mentioned above Neurologic denied any new focal deficits Objective - Vital Signs Vital signs: Vital Signs Temp 99.3 F 04/04/18 07:00 Pulse 75 04/04/18 13:33 Resp 20 04/04/18 07:00 BP 116/50 04/04/18 07:00 Pulse Ox 95 04/04/18 07:00 Intake & Output 04/03/18 04/04/18 04/04/18 18:59 06:59 18:59 Intake Total 1200 300 200 Balance 1200 300 200 Intake: Oral 1200 300 200 Other: Voiding Method Toilet Toilet # Voids 1 1 - Exam PHYSICAL EXAMINATION: GENERAL: The patient is alert and oriented x3, not in any acute distress. Well developed, well nourished. HEENT: Pupils are round and equally reacting to light. EOMI. No scleral icterus. No conjunctival pallor. Normocephalic, atraumatic. No pharyngeal erythema. No thyromegaly. CARDIOVASCULAR: S1 and S2 present. No murmurs, rubs, or gallops. PULMONARY: Limited air entry into bilateral lung tracy significant expiratory wheezing on exam. Improved wheezing air entry into bilateral lung tracy compared to yesterday ABDOMEN: Soft, nontender, nondistended, normoactive bowel sounds. No palpable organomegaly. MUSCULOSKELETAL: No joint swelling or deformity. EXTREMITIES: No cyanosis, clubbing, or pedal edema. NEUROLOGICAL: Gross neurological examination did not reveal any focal deficits. SKIN: No rashes. - Labs CBC & Chem 7: 04/02/18 17:00 04/02/18 17:00 Labs: Abnormal Lab Results - Last 24 Hours (Table) 04/03/18 04/03/18 04/04/18 Range/Units 16:49 20:41 07:16 POC Glucose (mg/dL) 133 H 212 H 199 H (75-99) mg/dL 04/04/18 Range/Units 11:58 POC Glucose (mg/dL) 242 H (75-99) mg/dL Microbiology - Last 24 Hours (Table) 04/02/18 17:00 Blood Culture - Preliminary Blood No Growth after 24 hours Assessment and Plan Plan: Acute on chronic hypercapnic respiratory failure secondary to COPD exacerbation and use to smoke: Extensive smoking cessation counseling was provided patient was started on systemic steroids and inhalational treatments pulmonology evaluated the patient patient is presently on levofloxacin and placed on treatments. -Essential hypertension -Hyperlipidemia -History of previous strokes -Chronic anemia and anemia of chronic disease
[2018-04-04] MEDS: guaiFENesin 600 MG TABLET.ER PO PRN (16:04)
[2018-04-04 17:18] LABS: Glucose,Whole Blood 321 mg/dL (75-99)
[2018-04-04] MEDS: CALCIUM CARBONATE 500 MG CHEWABLE PO PRN (19:31)
[2018-04-04 20:51] LABS: Glucose,Whole Blood 188 mg/dL (75-99)
[2018-04-04] MEDS: ATORVASTATIN 40 MG TAB PO SCH (21:07)
[2018-04-04] MEDS: MONTELUKAST 10 MG TAB PO SCH (21:08)
[2018-04-05] MEDS: methylPREDNISolone SOD SUCCI 125 MG/2 ML VIAL IV SCH ×5 (00:08→23:34)
[2018-04-05 07:39] LABS: Glucose,Whole Blood 228 mg/dL (75-99)
[2018-04-05] MEDS: IPRATROPIUM-ALBUTEROL 3 ML NEB INHALATION SCH ×4 (08:19→19:22)
[2018-04-05] MEDS: ASPIRIN 81 MG PO SCH (08:45)
[2018-04-05] MEDS: INSULIN ASPART 100 UNIT/ML 1 ML 10 ML VIAL SQ SCH ×4 (08:45→20:32)
[2018-04-05] MEDS: LISINOPRIL-HCTZ 20-25 MG 1 EACH TAB PO SCH (08:45)
[2018-04-05] MEDS: PANTOPRAZOLE 40 MG TABLET PO SCH (08:45)
[2018-04-05] MEDS: LEVOFLOXACIN 250 MG TAB PO SCH (08:46)
[2018-04-05] MEDS: HEPARIN SODIUM,PORCINE 5,000 UNIT/ML 1 ML VIAL SQ SCH ×2 (08:46→20:32)
[2018-04-05] MEDS: CLOPIDOGREL 75 MG TAB PO SCH (08:46)
[2018-04-05] MEDS: guaiFENesin 600 MG TABLET.ER PO PRN (11:24)
[2018-04-05] MEDS: CALCIUM CARBONATE 500 MG CHEWABLE PO PRN (11:24)
[2018-04-05 11:45] LABS: Glucose,Whole Blood 269 mg/dL (75-99)
[2018-04-05 17:01] LABS: Glucose,Whole Blood 239 mg/dL (75-99)
--- NOTE | 2018-04-05 19:33 | PN ---
PROGRESS NOTE DATE OF SERVICE: 04/05/2018 Ms. Elba Burnham is an 82-year-old female who was seen and evaluated and examined during rounds. She is admitted into the hospital with acute COPD exacerbation and tracheobronchitis. Clinically, she is feeling slightly better, breathing more comfortably, cough, congestion, shortness of breath improved, but still gets short of breath on activity and exertion. Her last set of vitals include blood pressure is 150/69, respiratory 16, pulse 100, temperature 98.7, saturation 95% on 4 L oxygen. HEENT unremarkable. Neck is supple. Lungs: Poor entry bilaterally. Heart regular rate, rhythm. Abdomen is soft. No rebound, rigidity. Extremities +1 peripheral pulses. Neurological examination otherwise awake and alert. IMPRESSION: 1. Acute chronic obstructive pulmonary disease exacerbation. 2. Tracheobronchitis. 3. Bilateral pneumonia, which clinically and radiographically improving. 4. Generalized anxiety disorder. PLAN AND RECOMMENDATIONS: Continue steroids and breathing treatments. Continue supportive care. Continue antibiotics. Increase activity as tolerated. The patient is not ready for discharge. MMODL / IJN: [id number] /
[2018-04-05] MEDS: MONTELUKAST 10 MG TAB PO SCH (20:32)
[2018-04-05] MEDS: ATORVASTATIN 40 MG TAB PO SCH (20:32)
[2018-04-05 20:44] LABS: Glucose,Whole Blood 209 mg/dL (75-99)
[2018-04-06] MEDS: methylPREDNISolone SOD SUCCI 125 MG/2 ML VIAL IV SCH ×3 (06:18→17:53)
[2018-04-06 07:20] LABS: Glucose,Whole Blood 251 mg/dL (75-99)
[2018-04-06] MEDS: IPRATROPIUM-ALBUTEROL 3 ML NEB INHALATION SCH ×4 (07:27→19:41)
[2018-04-06] MEDS: HEPARIN SODIUM,PORCINE 5,000 UNIT/ML 1 ML VIAL SQ SCH ×2 (08:08→20:00)
[2018-04-06] MEDS: INSULIN ASPART 100 UNIT/ML 1 ML 10 ML VIAL SQ SCH ×4 (08:08→21:02)
[2018-04-06] MEDS: CLOPIDOGREL 75 MG TAB PO SCH (08:09)
[2018-04-06] MEDS: PANTOPRAZOLE 40 MG TABLET PO SCH (08:09)
[2018-04-06] MEDS: LISINOPRIL-HCTZ 20-25 MG 1 EACH TAB PO SCH (08:09)
[2018-04-06] MEDS: ASPIRIN 81 MG PO SCH (08:09)
[2018-04-06] MEDS: LEVOFLOXACIN 250 MG TAB PO SCH (08:09)
--- NOTE | 2018-04-06 10:09 | P.PN ---
Subjective Progress Note Date: 04/06/18 Principal diagnosis: Acute COPD exacerbation, acute on chronic hypoxic respirator failure, recent pneumonia, hypertension hypertensive cardiovascular disease, dyslipidemia, history of CVA, chronic anemia 04/06/2018, patient seen eval examined during the rounds clinically patient has been doing slightly better still have shortness breath on activity and exertion feels chest is less congested now remains on IV steroids breathing treatments and antibiotics 04/05/2018, please refer to my dictated report 04/04/2018, patient seen eval examined during the rounds clinically patient is still short of breath cough congestion get symptomatic with 2-3 steps predominantly cough is dry and nonproductive denies any chest pain or radiation of pain though appetite and sleep however has improved a bit 04/03/2018, patient seen eval reexamined during the rounds clinically still very short of breath have difficult time and moving around cannot take more than 3 or 4 steps, chest x-ray failed to reveal any significant new changes small pleural effusion on the left side cannot be excluded no new pneumonia is seen suspect current changes are due to COPD exacerbation, patient however require slight higher FiO2 baseline is 3 L now she is on 5 L nasal cannula with that she feels slightly better off of oxygen sats drop down into mid 80s to low 80s Adalid would recommend to do a d-dimer if elevated consider doing a spiral CT scan of the chest Amgary will put patient on DVT and peptic ulcer disease prophylaxis as well 82-year-old female who was seen evaluated examined on fifth floor this patient has chronic hypoxic respirator failure has been on home oxygen patient developed problems increased cuff congestion shortness of breath about a week ago has been progressive came into the emergency department seen evaluated examined and admitted into the hospital, she does have a significant history of the seizure disorder and stroke about a year ago, patient is still actively smoking Objective - Vital Signs Vital signs: Vital Signs Temp 98.6 F 04/06/18 06:18 Pulse 84 04/06/18 07:39 Resp 20 04/06/18 06:18 BP 155/65 04/06/18 06:18 Pulse Ox 95 04/06/18 06:18 Intake & Output 04/05/18 04/06/18 04/06/18 18:59 06:59 18:59 Intake Total 400 600 Balance 400 600 Weight 63 kg Intake: Oral 400 600 Other: Voiding Method Bedside Commode # Voids 1 2 # Bowel Movements 0 - Exam General appearance: alert, in no apparent distress Head exam: Present: atraumatic, normocephalic Eye exam: Present: normal appearance, PERRL ENT exam: Present: normal exam Neck exam: Present: normal inspection. Absent: tenderness Respiratory exam: Present: respiratory distress, wheezes, rhonchi Cardiovascular Exam: Present: regular rate, normal rhythm GI/Abdominal exam: Present: soft. Absent: distended, tenderness, guarding Extremities exam: Present: normal inspection, normal capillary refill. Absent: pedal edema, calf tenderness Neurological exam: Present: alert, oriented X3, CN II-XII intact. Absent: motor sensory deficit Psychiatric exam: Present: normal affect, normal mood Skin exam: Present: warm, dry, intact. Absent: cyanosis, diaphoretic - Labs CBC & Chem 7: 04/02/18 17:00 04/02/18 17:00 Labs: Abnormal Lab Results - Last 24 Hours (Table) 04/05/18 04/05/18 04/05/18 Range/Units 11:15 16:53 20:29 POC Glucose (mg/dL) 269 H 239 H 209 H (75-99) mg/dL 04/06/18 Range/Units 07:06 POC Glucose (mg/dL) 251 H (75-99) mg/dL Microbiology - Last 24 Hours (Table) 04/02/18 17:00 Blood Culture - Preliminary Blood No Growth after 72 hours Assessment and Plan Assessment: Acute COPD exacerbation Acute on chronic hypoxic respirator failure, with higher FiO2 requirement than baseline History of recent pneumonia Hypertension hypertensive cardiovascular disease Dyslipidemia History of prior stroke Chronic anemia Plan: Check d-dimer within normal limit, will hold on computed tomography scan of the chest as likelihood of pulmonary embolism is low hypoxia likely is related to COPD exacerbation Bronchodilator Continue home medications Broad spectrum antibiotics IV steroids Peptic ulcer disease prophylaxis and DVT prophylaxis Further recommendations pending plan of care as per clinical response of the patient Time with Patient: Greater than 30
--- NOTE | 2018-04-06 11:08 | P.PN ---
Subjective Progress Note Date: 04/05/18 Patient still feels congested although patient's saturations improved and the air entry into bilateral lung tracy and wheezing did improve. Patient is admitted for acute on chronic hypercapnic respiratory failure secondary to COPD exacerbation patient can use to smoke and systemic steroids inhalational treatments and levofloxacin at this time. No pneumonia. 04/05/2018 Patient does have improvement minimal Constitutional: Denied any fatigue denied any fever. Cardio vascular: denied any chest pain, palpitations Gastrointestinal denied any nausea vomiting Pulmonary: As mentioned above Neurologic denied any new focal deficits Objective - Vital Signs Vital signs: Vital Signs Temp 98.6 F 04/06/18 06:18 Pulse 84 04/06/18 07:39 Resp 20 04/06/18 06:18 BP 155/65 04/06/18 06:18 Pulse Ox 95 04/06/18 06:18 Intake & Output 04/05/18 04/06/18 04/06/18 18:59 06:59 18:59 Intake Total 400 600 Balance 400 600 Weight 63 kg Intake: Oral 400 600 Other: Voiding Method Bedside Commode # Voids 1 2 # Bowel Movements 0 - Exam PHYSICAL EXAMINATION: GENERAL: The patient is alert and oriented x3, not in any acute distress. Well developed, well nourished. HEENT: Pupils are round and equally reacting to light. EOMI. No scleral icterus. No conjunctival pallor. Normocephalic, atraumatic. No pharyngeal erythema. No thyromegaly. CARDIOVASCULAR: S1 and S2 present. No murmurs, rubs, or gallops. PULMONARY: Limited air entry into bilateral lung tracy significant expiratory wheezing on exam. Improved wheezing air entry into bilateral lung tracy compared to yesterday ABDOMEN: Soft, nontender, nondistended, normoactive bowel sounds. No palpable organomegaly. MUSCULOSKELETAL: No joint swelling or deformity. EXTREMITIES: No cyanosis, clubbing, or pedal edema. NEUROLOGICAL: Gross neurological examination did not reveal any focal deficits. SKIN: No rashes. - Labs CBC & Chem 7: 04/02/18 17:00 04/02/18 17:00 Labs: Abnormal Lab Results - Last 24 Hours (Table) 04/05/18 04/05/18 04/05/18 Range/Units 11:15 16:53 20:29 POC Glucose (mg/dL) 269 H 239 H 209 H (75-99) mg/dL 04/06/18 Range/Units 07:06 POC Glucose (mg/dL) 251 H (75-99) mg/dL Microbiology - Last 24 Hours (Table) 04/02/18 17:00 Blood Culture - Preliminary Blood No Growth after 72 hours Assessment and Plan Plan: Acute on chronic hypercapnic respiratory failure secondary to COPD exacerbation and use to smoke: Extensive smoking cessation counseling was provided patient was started on systemic steroids and inhalational treatments pulmonology evaluated the patient patient is presently on levofloxacin and placed on treatments. -Essential hypertension -Hyperlipidemia -History of previous strokes -Chronic anemia and anemia of chronic disease
[2018-04-06 11:38] LABS: Glucose,Whole Blood 220 mg/dL (75-99)
[2018-04-06 16:49] LABS: Glucose,Whole Blood 297 mg/dL (75-99)
--- NOTE | 2018-04-06 17:40 | P.PN ---
Subjective Progress Note Date: 04/06/18 Progress note being dictated for Dr. Olivas. Interval history:Patient still feels congested although patient's saturations improved and the air entry into bilateral lung tracy and wheezing did improve. Patient is admitted for acute on chronic hypercapnic respiratory failure secondary to COPD exacerbation patient can use to smoke and systemic steroids inhalational treatments and levofloxacin at this time. No pneumonia. 04/05/2018 Patient does have improvement minimal Constitutional: Denied any fatigue denied any fever. Cardio vascular: denied any chest pain, palpitations Gastrointestinal denied any nausea vomiting Pulmonary: As mentioned above Neurologic denied any new focal deficits 04/06/2018 sitting up in chair, maintained on nebulized bronchodilators, systemic steroids, Levaquin. Minimal improvement with Audible wheezing. Afebrile. Maintaining O2 sats in the low 90s on 3 L nasal cannula. Objective - Vital Signs Vital signs: Vital Signs Temp 98.3 F 04/06/18 14:15 Pulse 92 04/06/18 15:46 Resp 16 04/06/18 14:15 BP 126/65 04/06/18 14:15 Pulse Ox 90 L 04/06/18 14:15 Intake & Output 04/05/18 04/06/18 04/06/18 18:59 06:59 18:59 Intake Total 400 600 Balance 400 600 Weight 63 kg Intake: Oral 400 600 Other: Voiding Method Bedside Commode # Voids 1 2 2 # Bowel Movements 0 1 - Exam GENERAL: Sitting up in chair, alert and oriented x3, no acute distress. HEENT: Pupils are round and equally reacting to light. EOMI. No scleral icterus. No conjunctival pallor. Normocephalic, atraumatic. No pharyngeal erythema. No thyromegaly. CARDIOVASCULAR: S1 and S2 present. No murmurs, rubs, or gallops. PULMONARY: Respiratory effort mildly increased, bilateral lungs diminished with significant expiratory wheezing on exam. ABDOMEN: Soft, nontender, nondistended, normoactive bowel sounds. No palpable organomegaly. MUSCULOSKELETAL: No joint swelling or deformity. EXTREMITIES: No cyanosis, clubbing, or pedal edema. NEUROLOGICAL: Gross neurological examination did not reveal any focal deficits. SKIN: No rashes. - Labs CBC & Chem 7: 04/02/18 17:00 04/02/18 17:00 Labs: Abnormal Lab Results - Last 24 Hours (Table) 04/05/18 04/06/18 04/06/18 Range/Units 20:29 07:06 11:35 POC Glucose (mg/dL) 209 H 251 H 220 H (75-99) mg/dL 04/06/18 Range/Units 16:30 POC Glucose (mg/dL) 297 H (75-99) mg/dL Microbiology - Last 24 Hours (Table) 04/02/18 17:00 Blood Culture - Preliminary Blood No Growth after 72 hours Assessment and Plan Assessment: Acute on chronic hypercapnic respiratory failure secondary to COPD exacerbation -Essential hypertension -Hyperlipidemia -History of previous strokes -Chronic anemia and anemia of chronic disease -Ongoing nicotine dependence Plan: Continue on current medication regime ,monitoring and symptomatic treatment. Maintain nebulized bronchodilators, steroids, antibiotics. Increase ambulation as tolerated. Smoking cessation readdressed. The impression and plan of care has been dictated as directed. : I performed a history and examination of this patient, discussed the same with the dictator. I agree with the dictator's note ,documented as a scribe. Any additional findings or plans will be noted.
[2018-04-06] MEDS: guaiFENesin 600 MG TABLET.ER PO PRN (18:30)
[2018-04-06] MEDS: CHOLECALCIFEROL 1,000 UNIT TAB PO SCH (18:30)
[2018-04-06] MEDS: SYMBICORT 160-4.5 MCG INHALER INHALATION SCH (19:41)
[2018-04-06] MEDS: MONTELUKAST 10 MG TAB PO SCH (20:00)
[2018-04-06] MEDS: ATORVASTATIN 40 MG TAB PO SCH (20:00)
[2018-04-06 20:50] LABS: Glucose,Whole Blood 182 mg/dL (75-99)
[2018-04-07] MEDS: methylPREDNISolone SOD SUCCI 125 MG/2 ML VIAL IV SCH ×5 (00:05→23:38)
[2018-04-07] MEDS: SYMBICORT 160-4.5 MCG INHALER INHALATION SCH ×2 (07:13→19:21)
[2018-04-07] MEDS: IPRATROPIUM-ALBUTEROL 3 ML NEB INHALATION SCH ×4 (07:13→19:21)
[2018-04-07 07:14] LABS: Glucose,Whole Blood 243 mg/dL (75-99)
[2018-04-07] MEDS: INSULIN ASPART 100 UNIT/ML 1 ML 10 ML VIAL SQ SCH ×4 (07:54→20:59)
[2018-04-07] MEDS: ASPIRIN 81 MG PO SCH (07:55)
[2018-04-07] MEDS: FERROUS SULFATE 325 MG TAB PO SCH (07:55)
[2018-04-07] MEDS: CHOLECALCIFEROL 1,000 UNIT TAB PO SCH (07:55)
[2018-04-07] MEDS: HEPARIN SODIUM,PORCINE 5,000 UNIT/ML 1 ML VIAL SQ SCH ×2 (07:55→20:48)
[2018-04-07] MEDS: LEVOFLOXACIN 250 MG TAB PO SCH (07:55)
[2018-04-07] MEDS: LISINOPRIL-HCTZ 20-25 MG 1 EACH TAB PO SCH (07:55)
[2018-04-07] MEDS: PANTOPRAZOLE 40 MG TABLET PO SCH (07:56)
[2018-04-07] MEDS: MULTIVITAMINS, THERA 1 EACH TAB PO SCH (07:56)
[2018-04-07] MEDS: CLOPIDOGREL 75 MG TAB PO SCH (07:56)
[2018-04-07 09:37] LABS: Basophils % (A) 0 %; Eosinophils % (A) 0 %; HCT 37.7 % (34.0-46.0); HGB 12.1 gm/dL (11.4-16.0); Lymphocytes # (A) 0.2 k/uL (1.0-4.8); Lymphocytes % (A) 2 %; MCH 31.1 pg (25.0-35.0); MCHC 32.1 g/dL (31.0-37.0); MCV 97.1 fL (80.0-100.0); Mean Platelet Volume 6.8; Monocytes # (A) 0.4 k/uL (0-1.0); Monocytes % (A) 4 %; Neutrophils # (A) 8.4 k/uL (1.3-7.7); Neutrophils % (A) 94 %; Platelet Count 253 k/uL (150-450); RBC 3.89 m/uL (3.80-5.40); WBC 8.9 k/uL (3.8-10.6)
[2018-04-07 09:51] LABS: Calcium 7.9 mg/dL (8.4-10.2); Potassium 4.5 mmol/L (3.5-5.1)
[2018-04-07 11:35] LABS: Glucose,Whole Blood 158 mg/dL (75-99)
[2018-04-07 17:08] LABS: Glucose,Whole Blood 302 mg/dL (75-99)
--- NOTE | 2018-04-07 18:18 | P.PN ---
Subjective Progress Note Date: 04/07/18 Progress note being dictated for Dr. Olivas. Interval history:Patient still feels congested although patient's saturations improved and the air entry into bilateral lung tracy and wheezing did improve. Patient is admitted for acute on chronic hypercapnic respiratory failure secondary to COPD exacerbation patient can use to smoke and systemic steroids inhalational treatments and levofloxacin at this time. No pneumonia. 04/05/2018 Patient does have improvement minimal Constitutional: Denied any fatigue denied any fever. Cardio vascular: denied any chest pain, palpitations Gastrointestinal denied any nausea vomiting Pulmonary: As mentioned above Neurologic denied any new focal deficits 04/06/2018 sitting up in chair, maintained on nebulized bronchodilators, systemic steroids, Levaquin. Minimal improvement with Audible wheezing. Afebrile. Maintaining O2 sats in the low 90s on 3 L nasal cannula. 04/07/2018 Audible wheezing. Creatinine 1.02. Short of breath with minimal exertion. Denies chest pain, palpitations. Objective - Vital Signs Vital signs: Vital Signs Temp 99.0 F 04/07/18 15:00 Pulse 84 04/07/18 15:14 Resp 20 04/07/18 15:00 BP 152/67 04/07/18 15:00 Pulse Ox 89 L 04/07/18 15:00 Intake & Output 04/06/18 04/07/18 04/07/18 18:59 06:59 18:59 Intake Total 600 340 Balance 600 340 Intake: Oral 600 340 Other: # Voids 1 1 3 # Bowel Movements 1 0 - Exam GENERAL: Sitting up in chair, alert and oriented x3, no acute distress. HEENT: Pupils are round and equally reacting to light. EOMI. No scleral icterus. No conjunctival pallor. Normocephalic, atraumatic. No pharyngeal erythema. No thyromegaly. CARDIOVASCULAR: S1 and S2 present. No murmurs, rubs, or gallops. PULMONARY: Respiratory effort mildly increased, bilateral lungs diminished with significant mildly improved expiratory wheezing ABDOMEN: Soft, nontender, nondistended, normoactive bowel sounds. No palpable organomegaly. MUSCULOSKELETAL: No joint swelling or deformity. EXTREMITIES: No cyanosis, clubbing, or pedal edema. NEUROLOGICAL: Gross neurological examination did not reveal any focal deficits. SKIN: No rashes. - Labs CBC & Chem 7: 04/07/18 09:05 04/07/18 09:05 Labs: Abnormal Lab Results - Last 24 Hours (Table) 04/06/18 04/07/18 04/07/18 Range/Units 20:45 07:09 09:05 Neutrophils # 8.4 H (1.3-7.7) k/uL Lymphocytes # 0.2 L (1.0-4.8) k/uL Sodium (137-145) mmol/L BUN (7-17) mg/dL Glucose (74-99) mg/dL POC Glucose (mg/dL) 182 H 243 H (75-99) mg/dL Calcium (8.4-10.2) mg/dL 04/07/18 04/07/18 04/07/18 Range/Units 09:05 11:29 17:06 Neutrophils # (1.3-7.7) k/uL Lymphocytes # (1.0-4.8) k/uL Sodium 135 L (137-145) mmol/L BUN 63 H (7-17) mg/dL Glucose 225 H (74-99) mg/dL POC Glucose (mg/dL) 158 H 302 H (75-99) mg/dL Calcium 7.9 L (8.4-10.2) mg/dL Microbiology - Last 24 Hours (Table) 04/02/18 17:00 Blood Culture - Preliminary Blood No Growth after 96 hours Assessment and Plan Assessment: Acute on chronic hypercapnic respiratory failure secondary to COPD exacerbation -Essential hypertension -Hyperlipidemia -History of previous strokes -Chronic anemia and anemia of chronic disease -Ongoing nicotine dependence Plan: Continue on current medication regime ,monitoring and symptomatic treatment. Maintain nebulized bronchodilators, steroids, antibiotics. Increase ambulation as tolerated. CPT ordered. Smoking cessation readdressed. The impression and plan of care has been dictated as directed. : I performed a history and examination of this patient, discussed the same with the dictator. I agree with the dictator's note ,documented as a scribe. Any additional findings or plans will be noted.
[2018-04-07] MEDS: ATORVASTATIN 40 MG TAB PO SCH (20:48)
[2018-04-07] MEDS: MONTELUKAST 10 MG TAB PO SCH (20:48)
[2018-04-07 21:16] LABS: Glucose,Whole Blood 220 mg/dL (75-99)
[2018-04-08] MEDS: methylPREDNISolone SOD SUCCI 125 MG/2 ML VIAL IV SCH ×3 (05:58→18:02)
[2018-04-08] MEDS: IPRATROPIUM-ALBUTEROL 3 ML NEB INHALATION SCH ×4 (07:21→20:21)
[2018-04-08] MEDS: SYMBICORT 160-4.5 MCG INHALER INHALATION SCH ×2 (07:21→20:21)
[2018-04-08 07:59] LABS: Glucose,Whole Blood 267 mg/dL (75-99)
[2018-04-08] MEDS: CLOPIDOGREL 75 MG TAB PO SCH (08:37)
[2018-04-08] MEDS: LISINOPRIL-HCTZ 20-25 MG 1 EACH TAB PO SCH (08:38)
[2018-04-08] MEDS: INSULIN ASPART 100 UNIT/ML 1 ML 10 ML VIAL SQ SCH ×4 (08:38→21:45)
[2018-04-08] MEDS: FERROUS SULFATE 325 MG TAB PO SCH (08:38)
[2018-04-08] MEDS: MULTIVITAMINS, THERA 1 EACH TAB PO SCH (08:38)
[2018-04-08] MEDS: PANTOPRAZOLE 40 MG TABLET PO SCH (08:38)
[2018-04-08] MEDS: HEPARIN SODIUM,PORCINE 5,000 UNIT/ML 1 ML VIAL SQ SCH ×2 (08:38→20:09)
[2018-04-08] MEDS: ASPIRIN 81 MG PO SCH (08:38)
[2018-04-08] MEDS: LEVOFLOXACIN 250 MG TAB PO SCH (08:38)
[2018-04-08] MEDS: CHOLECALCIFEROL 1,000 UNIT TAB PO SCH (08:40)
[2018-04-08 11:36] LABS: Glucose,Whole Blood 245 mg/dL (75-99)
[2018-04-08] MEDS: guaiFENesin 600 MG TABLET.ER PO PRN (12:44)
--- NOTE | 2018-04-08 14:47 | P.PN ---
Subjective Progress Note Date: 04/07/18 Principal diagnosis: Acute COPD exacerbation, acute on chronic hypoxic respirator failure, recent pneumonia, hypertension hypertensive cardiovascular disease, dyslipidemia, history of CVA, chronic anemia 04/07/2018, patient seen eval examined during the rounds is still S problem ongoing cough congestion shortness of breath chest tightness breathing remains difficult, patient remains on broad-spectrum antibiotics bronchodilators and IV steroids slowly responding 04/06/2018, patient seen eval examined during the rounds clinically patient has been doing slightly better still have shortness breath on activity and exertion feels chest is less congested now remains on IV steroids breathing treatments and antibiotics 04/05/2018, please refer to my dictated report 04/04/2018, patient seen eval examined during the rounds clinically patient is still short of breath cough congestion get symptomatic with 2-3 steps predominantly cough is dry and nonproductive denies any chest pain or radiation of pain though appetite and sleep however has improved a bit 04/03/2018, patient seen eval reexamined during the rounds clinically still very short of breath have difficult time and moving around cannot take more than 3 or 4 steps, chest x-ray failed to reveal any significant new changes small pleural effusion on the left side cannot be excluded no new pneumonia is seen suspect current changes are due to COPD exacerbation, patient however require slight higher FiO2 baseline is 3 L now she is on 5 L nasal cannula with that she feels slightly better off of oxygen sats drop down into mid 80s to low 80s Amgary would recommend to do a d-dimer if elevated consider doing a spiral CT scan of the chest Amgary will put patient on DVT and peptic ulcer disease prophylaxis as well 82-year-old female who was seen evaluated examined on fifth floor this patient has chronic hypoxic respirator failure has been on home oxygen patient developed problems increased cuff congestion shortness of breath about a week ago has been progressive came into the emergency department seen evaluated examined and admitted into the hospital, she does have a significant history of the seizure disorder and stroke about a year ago, patient is still actively smoking Objective - Vital Signs Vital signs: Vital Signs Temp 98.2 F 04/08/18 07:45 Pulse 88 04/08/18 11:07 Resp 18 04/08/18 08:12 BP 162/61 04/08/18 07:45 Pulse Ox 91 L 04/08/18 07:45 Intake & Output 0904/08/18 04/08/18 18:59 06:59 18:59 Intake Total 375 Balance 375 Weight 63 kg Intake: Oral 375 Other: Voiding Method Bedside Commode # Voids 3 2 # Bowel Movements 0 - Exam General appearance: alert, in no apparent distress Head exam: Present: atraumatic, normocephalic Eye exam: Present: normal appearance, PERRL ENT exam: Present: normal exam Neck exam: Present: normal inspection. Absent: tenderness Respiratory exam: Present: respiratory distress, wheezes, rhonchi Cardiovascular Exam: Present: regular rate, normal rhythm GI/Abdominal exam: Present: soft. Absent: distended, tenderness, guarding Extremities exam: Present: normal inspection, normal capillary refill. Absent: pedal edema, calf tenderness Neurological exam: Present: alert, oriented X3, CN II-XII intact. Absent: motor sensory deficit Psychiatric exam: Present: normal affect, normal mood Skin exam: Present: warm, dry, intact. Absent: cyanosis, diaphoretic - Labs CBC & Chem 7: 04/07/18 09:05 04/07/18 09:05 Labs: Abnormal Lab Results - Last 24 Hours (Table) 04/07/18 04/07/18 04/08/18 Range/Units 17:06 20:57 07:53 POC Glucose (mg/dL) 302 H 220 H 267 H (75-99) mg/dL 04/08/18 Range/Units 11:33 POC Glucose (mg/dL) 245 H (75-99) mg/dL Microbiology - Last 24 Hours (Table) 04/02/18 17:00 Blood Culture - Preliminary Blood No Growth after 120 hours Assessment and Plan Assessment: Acute COPD exacerbation Acute on chronic hypoxic respirator failure, with higher FiO2 requirement than baseline History of recent pneumonia Hypertension hypertensive cardiovascular disease Dyslipidemia History of prior stroke Chronic anemia Plan: Bronchodilator Continue home medications Broad spectrum antibiotics IV steroids Peptic ulcer disease prophylaxis and DVT prophylaxis Further recommendations pending plan of care as per clinical response of the patient Time with Patient: Greater than 30
--- NOTE | 2018-04-08 14:49 | P.PN ---
Subjective Progress Note Date: 04/08/18 Principal diagnosis: Acute COPD exacerbation, acute on chronic hypoxic respirator failure, recent pneumonia, hypertension hypertensive cardiovascular disease, dyslipidemia, history of CVA, chronic anemia 04/08/2018, patient is actively undergoing chest PT complaining of chest pain, suspect patient has significant bronchiectasis patient likely will benefit from vest therapy, will evaluate the patient for bronchiectasis 04/07/2018, patient seen eval examined during the rounds is still S problem ongoing cough congestion shortness of breath chest tightness breathing remains difficult, patient remains on broad-spectrum antibiotics bronchodilators and IV steroids slowly responding 04/06/2018, patient seen eval examined during the rounds clinically patient has been doing slightly better still have shortness breath on activity and exertion feels chest is less congested now remains on IV steroids breathing treatments and antibiotics 04/05/2018, please refer to my dictated report 04/04/2018, patient seen eval examined during the rounds clinically patient is still short of breath cough congestion get symptomatic with 2-3 steps predominantly cough is dry and nonproductive denies any chest pain or radiation of pain though appetite and sleep however has improved a bit 04/03/2018, patient seen eval reexamined during the rounds clinically still very short of breath have difficult time and moving around cannot take more than 3 or 4 steps, chest x-ray failed to reveal any significant new changes small pleural effusion on the left side cannot be excluded no new pneumonia is seen suspect current changes are due to COPD exacerbation, patient however require slight higher FiO2 baseline is 3 L now she is on 5 L nasal cannula with that she feels slightly better off of oxygen sats drop down into mid 80s to low 80s Adalid would recommend to do a d-dimer if elevated consider doing a spiral CT scan of the chest Amgary will put patient on DVT and peptic ulcer disease prophylaxis as well 82-year-old female who was seen evaluated examined on fifth floor this patient has chronic hypoxic respirator failure has been on home oxygen patient developed problems increased cuff congestion shortness of breath about a week ago has been progressive came into the emergency department seen evaluated examined and admitted into the hospital, she does have a significant history of the seizure disorder and stroke about a year ago, patient is still actively smoking Objective - Vital Signs Vital signs: Vital Signs Temp 98.2 F 04/08/18 07:45 Pulse 88 09/20/18 11:07 Resp 18 04/08/18 08:12 BP 162/61 04/08/18 07:45 Pulse Ox 91 L 04/08/18 07:45 Intake & Output 04/07/18 04/08/18 04/08/18 18:59 06:59 18:59 Intake Total 375 Balance 375 Weight 63 kg Intake: Oral 375 Other: Voiding Method Bedside Commode # Voids 3 2 # Bowel Movements 0 - Exam General appearance: alert, in no apparent distress Head exam: Present: atraumatic, normocephalic Eye exam: Present: normal appearance, PERRL ENT exam: Present: normal exam Neck exam: Present: normal inspection. Absent: tenderness Respiratory exam: Present: respiratory distress, wheezes, rhonchi Cardiovascular Exam: Present: regular rate, normal rhythm GI/Abdominal exam: Present: soft. Absent: distended, tenderness, guarding Extremities exam: Present: normal inspection, normal capillary refill. Absent: pedal edema, calf tenderness Neurological exam: Present: alert, oriented X3, CN II-XII intact. Absent: motor sensory deficit Psychiatric exam: Present: normal affect, normal mood Skin exam: Present: warm, dry, intact. Absent: cyanosis, diaphoretic - Labs CBC & Chem 7: 04/07/18 09:05 04/07/18 09:05 Labs: Abnormal Lab Results - Last 24 Hours (Table) 04/07/18 04/07/18 04/08/18 Range/Units 17:06 20:57 07:53 POC Glucose (mg/dL) 302 H 220 H 267 H (75-99) mg/dL 04/08/18 Range/Units 11:33 POC Glucose (mg/dL) 245 H (75-99) mg/dL Microbiology - Last 24 Hours (Table) 04/02/18 17:00 Blood Culture - Preliminary Blood No Growth after 120 hours Assessment and Plan Assessment: Acute COPD exacerbation Chronic bronchiectasis with acute worsening Acute on chronic hypoxic respirator failure, with higher FiO2 requirement than baseline History of recent pneumonia Hypertension hypertensive cardiovascular disease Dyslipidemia History of prior stroke Chronic anemia Plan: Will obtain a computed tomography scan of the chest without contrast to look for bronchiectasis if positive patient would benefit from [place] therapy rather than just physical therapy Bronchodilator Continue home medications Broad spectrum antibiotics IV steroids Peptic ulcer disease prophylaxis and DVT prophylaxis Further recommendations pending plan of care as per clinical response of the patient Time with Patient: Greater than 30
--- NOTE | 2018-04-08 15:50 | P.PN ---
Subjective Progress Note Date: 04/08/18 Progress note being dictated for Dr. Olivas. Interval history:Patient still feels congested although patient's saturations improved and the air entry into bilateral lung tracy and wheezing did improve. Patient is admitted for acute on chronic hypercapnic respiratory failure secondary to COPD exacerbation patient can use to smoke and systemic steroids inhalational treatments and levofloxacin at this time. No pneumonia. 04/05/2018 Patient does have improvement minimal Constitutional: Denied any fatigue denied any fever. Cardio vascular: denied any chest pain, palpitations Gastrointestinal denied any nausea vomiting Pulmonary: As mentioned above Neurologic denied any new focal deficits 04/06/2018 sitting up in chair, maintained on nebulized bronchodilators, systemic steroids, Levaquin. Minimal improvement with Audible wheezing. Afebrile. Maintaining O2 sats in the low 90s on 3 L nasal cannula. 04/07/2018 Audible wheezing. Creatinine 1.02. Short of breath with minimal exertion. Denies chest pain, palpitations. 04/08/2018 CPT initiated yesterday. Patient complains that the CPT makes her more short of breath, following the treatment. Remains wheezy, rhonchorous. Consuming 75% of diet with no nausea vomiting or diarrhea. T-max 99. Maintaining O2 sats of 94% on 3 L nasal cannula O2 denies chest pain, palpitations. Chest CT ordered to evaluate for bronchiectasis as per pulmonary. Objective - Vital Signs Vital signs: Vital Signs Temp 99.0 F 04/08/18 13:40 Pulse 88 04/08/18 15:32 Resp 16 04/08/18 13:40 BP 132/63 04/08/18 13:40 Pulse Ox 94 L 04/08/18 13:40 Intake & Output 04/07/18 04/08/18 04/08/18 18:59 06:59 18:59 Intake Total 375 900 Balance 375 900 Weight 63 kg Intake: Oral 375 900 Other: Voiding Method Bedside Commode # Voids 3 2 2 # Bowel Movements 0 - Exam GENERAL: Sitting up in chair, alert and oriented x3, mildly increased respiratory effort. HEENT: Pupils are round and equally reacting to light. EOMI. No scleral icterus. No conjunctival pallor. Normocephalic, atraumatic. No pharyngeal erythema. No thyromegaly. CARDIOVASCULAR: S1 and S2 present. No murmurs, rubs, or gallops. PULMONARY: Respiratory effort mildly increased, bilateral lungs diminished with expiratory wheezing and scattered rhonchi ABDOMEN: Soft, nontender, nondistended, normoactive bowel sounds. No palpable organomegaly. MUSCULOSKELETAL: No joint swelling or deformity. EXTREMITIES: No cyanosis, clubbing, or pedal edema. NEUROLOGICAL: Gross neurological examination did not reveal any focal deficits. SKIN: No rashes. - Labs CBC & Chem 7: 04/07/18 09:05 04/07/18 09:05 Labs: Abnormal Lab Results - Last 24 Hours (Table) 04/07/18 04/07/18 04/08/18 Range/Units 17:06 20:57 07:53 POC Glucose (mg/dL) 302 H 220 H 267 H (75-99) mg/dL 04/08/18 Range/Units 11:33 POC Glucose (mg/dL) 245 H (75-99) mg/dL Microbiology - Last 24 Hours (Table) 04/02/18 17:00 Blood Culture - Preliminary Blood No Growth after 120 hours Assessment and Plan Assessment: Acute on chronic hypercapnic respiratory failure secondary to COPD exacerbation , possible acute on chronic bronchiectasis -Essential hypertension -Hyperlipidemia -History of previous strokes -Chronic anemia and anemia of chronic disease -Ongoing nicotine dependence Plan: Continue on current medication regime ,monitoring and symptomatic treatment. Maintain nebulized bronchodilators, steroids, antibiotics. Chest CT pending. Increase ambulation as tolerated. Smoking cessation readdressed. The impression and plan of care has been dictated as directed. : I performed a history and examination of this patient, discussed the same with the dictator. I agree with the dictator's note ,documented as a scribe. Any additional findings or plans will be noted.
[2018-04-08 17:02] LABS: Glucose,Whole Blood 92 mg/dL (75-99)
--- NOTE | 2018-04-08 18:36 | CT ---
EXAMINATION TYPE: CT chest wo con DATE OF EXAM: 04/08/2018 COMPARISON: None HISTORY: Bronchiectasis. CT DLP: 359 mGycm. Automated Exposure Control for Dose Reduction was Utilized. TECHNIQUE: CT scan of the thorax is performed without IV contrast. FINDINGS: Heart appears shifted slightly to the left side. There is consolidation and atelectasis in the left l ower lobe in the left paraspinal region. Heart size is normal. There is no pericardial effusion. Ther e is coronary artery calcification. There are a few paratracheal and bronchial lymph nodes and measur e up to 1 cm. Ascending aorta measures up to 3.2 cm. There is no evidence of aneurysm. There is some spurring in the thoracic spine. IMPRESSION: There is consolidation and atelectasis in the entire left lower lobe with posterior devia tion of the major fissure and volume loss in the left hemithorax. Left lower lobe bronchus is occlude d. Follow-up is recommended. Bronchoscopy would be helpful for further evaluation if clinically indic ated.
[2018-04-08] MEDS: ATORVASTATIN 40 MG TAB PO SCH (20:09)
[2018-04-08] MEDS: MONTELUKAST 10 MG TAB PO SCH (20:09)
[2018-04-08 20:53] LABS: Glucose,Whole Blood 338 mg/dL (75-99)
[2018-04-09 00:08] LABS: Glucose,Whole Blood 247 mg/dL (75-99)
[2018-04-09] MEDS: methylPREDNISolone SOD SUCCI 125 MG/2 ML VIAL IV SCH ×4 (00:57→17:29)
[2018-04-09 07:19] LABS: Glucose,Whole Blood 282 mg/dL (75-99)
[2018-04-09] MEDS: INSULIN ASPART 100 UNIT/ML 1 ML 10 ML VIAL SQ SCH ×4 (08:14→21:24)
[2018-04-09] MEDS: HEPARIN SODIUM,PORCINE 5,000 UNIT/ML 1 ML VIAL SQ SCH ×2 (08:14→20:39)
[2018-04-09] MEDS: CHOLECALCIFEROL 1,000 UNIT TAB PO SCH (08:14)
[2018-04-09] MEDS: MULTIVITAMINS, THERA 1 EACH TAB PO SCH (08:14)
[2018-04-09] MEDS: ASPIRIN 81 MG PO SCH (08:15)
[2018-04-09] MEDS: LEVOFLOXACIN 250 MG TAB PO SCH (08:15)
[2018-04-09] MEDS: CLOPIDOGREL 75 MG TAB PO SCH (08:15)
[2018-04-09] MEDS: PANTOPRAZOLE 40 MG TABLET PO SCH (08:15)
[2018-04-09] MEDS: FERROUS SULFATE 325 MG TAB PO SCH (08:15)
[2018-04-09] MEDS: LISINOPRIL-HCTZ 20-25 MG 1 EACH TAB PO SCH (08:16)
[2018-04-09] MEDS: SYMBICORT 160-4.5 MCG INHALER INHALATION SCH ×2 (08:29→19:30)
[2018-04-09] MEDS: IPRATROPIUM-ALBUTEROL 3 ML NEB INHALATION SCH ×4 (08:29→19:30)
[2018-04-09 12:02] LABS: Glucose,Whole Blood 169 mg/dL (75-99)
--- NOTE | 2018-04-09 12:36 | P.PN ---
Subjective Progress Note Date: 04/09/18 Progress note being dictated for Dr. Olivas. Interval history:Patient still feels congested although patient's saturations improved and the air entry into bilateral lung tracy and wheezing did improve. Patient is admitted for acute on chronic hypercapnic respiratory failure secondary to COPD exacerbation patient can use to smoke and systemic steroids inhalational treatments and levofloxacin at this time. No pneumonia. 04/05/2018 Patient does have improvement minimal Constitutional: Denied any fatigue denied any fever. Cardio vascular: denied any chest pain, palpitations Gastrointestinal denied any nausea vomiting Pulmonary: As mentioned above Neurologic denied any new focal deficits 04/06/2018 sitting up in chair, maintained on nebulized bronchodilators, systemic steroids, Levaquin. Minimal improvement with Audible wheezing. Afebrile. Maintaining O2 sats in the low 90s on 3 L nasal cannula. 04/07/2018 Audible wheezing. Creatinine 1.02. Short of breath with minimal exertion. Denies chest pain, palpitations. 04/08/2018 CPT initiated yesterday. Patient complains that the CPT makes her more short of breath, following the treatment. Remains wheezy, rhonchorous. Consuming 75% of diet with no nausea vomiting or diarrhea. T-max 99. Maintaining O2 sats of 94% on 3 L nasal cannula O2 denies chest pain, palpitations. Chest CT ordered to evaluate for bronchiectasis as per pulmonary. 04/09/2018 short of breath, maintaining O2 sats in the high 80s to low 90s on 4 L nasal cannula. Chest CT reported consolidation, atelectasis and the entire left lower lobe with occluded left lower lobe bronchus, deviation a major fissure in volume loss in the left hemithorax. T-max 99. Blood sugars uncontrolled on IV steroids. Objective - Vital Signs Vital signs: Vital Signs Temp 98.1 F 04/09/18 07:00 Pulse 82 04/09/18 12:01 Resp 16 04/09/18 07:00 BP 141/83 04/09/18 07:00 Pulse Ox 88 L 04/09/18 07:00 Intake & Output 04/08/18 04/09/18 04/09/18 18:59 06:59 18:59 Intake Total 900 Balance 900 Weight 63 kg Intake: Oral 900 Other: Voiding Method Toilet # Voids 2 1 - Exam GENERAL: Sitting up in bed, alert and oriented x3, increased respiratory effort. Tired appearing HEENT: Pupils are round and equally reacting to light. EOMI. No scleral icterus. No conjunctival pallor. Normocephalic, atraumatic. No pharyngeal erythema. No thyromegaly. CARDIOVASCULAR: S1 and S2 present. No murmurs, rubs, or gallops. PULMONARY: Respiratory effort mildly increased, bilateral lungs diminished with expiratory wheezing and scattered rhonchi ABDOMEN: Soft, nontender, nondistended, normoactive bowel sounds. No palpable organomegaly. MUSCULOSKELETAL: No joint swelling or deformity. EXTREMITIES: No cyanosis, clubbing, or pedal edema. NEUROLOGICAL: Gross neurological examination did not reveal any focal deficits. SKIN: No rashes. - Labs CBC & Chem 7: 04/07/18 09:05 04/07/18 09:05 Labs: Abnormal Lab Results - Last 24 Hours (Table) 04/08/18 04/09/18 04/09/18 Range/Units 20:52 00:04 07:11 POC Glucose (mg/dL) 338 H 247 H 282 H (75-99) mg/dL 04/09/18 Range/Units 11:32 POC Glucose (mg/dL) 169 H (75-99) mg/dL Microbiology - Last 24 Hours (Table) 04/02/18 17:00 Blood Culture - Final Blood No Growth after 144 hours Assessment and Plan Assessment: Acute on chronic hypercapnic respiratory failure secondary to COPD exacerbation , possible acute on chronic bronchiectasis. Occluded left lower lobe bronchus, entire left lower lobe consolidated. -Essential hypertension -Hyperlipidemia -History of previous strokes -Chronic anemia and anemia of chronic disease -Ongoing nicotine dependence Plan: Continue on current medication regime ,monitoring and symptomatic treatment. Computed tomography scan being called into pulmonary, potential bronchoscopy. Maintain nebulized bronchodilators, steroids, antibiotics. Uncontrolled blood sugars on steroids, Levemir added to med regime. Close monitoring of Accu-Cheks. Prognosis guarded given multiple complex medical issues. The impression and plan of care has been dictated as directed. : I performed a history and examination of this patient, discussed the same with the dictator. I agree with the dictator's note ,documented as a scribe. Any additional findings or plans will be noted.
[2018-04-09 16:56] LABS: Glucose,Whole Blood 189 mg/dL (75-99)
--- NOTE | 2018-04-09 16:56 | P.PN ---
Subjective Progress Note Date: 04/09/18 Principal diagnosis: Acute COPD exacerbation, acute on chronic hypoxic respirator failure, recent pneumonia, hypertension hypertensive cardiovascular disease, dyslipidemia, history of CVA, chronic anemia left lower lobe atelectasis and consolidation 04/09/2018, patient seen eval examined during the rounds patient does feel slightly more short of breath than baseline patient is currently on 5 L oxygen does get short of breath activity and exertion I have reviewed the computed tomography scan of the chest and reviewed finding with the patient and daughter present at the bedside given that patient is on 5 L oxygen carries a high risk of doing an emergent bronchoscopy on the other hand patient has been on Plavix as well if any endobronchial mass or growth is present then will likely need the biopsy the Plavix is being put on hold simple bronchoscopy can be considered without biopsy sometime once respiratory status is slightly more stable, complications including respiratory failure requiring ventilator support has been discussed with the patient as well in addition to needing complication associated with biopsy especially in the light of being on Plavix 04/08/2018, patient is actively undergoing chest PT complaining of chest pain, suspect patient has significant bronchiectasis patient likely will benefit from vest therapy, will evaluate the patient for bronchiectasis 04/07/2018, patient seen eval examined during the rounds is still S problem ongoing cough congestion shortness of breath chest tightness breathing remains difficult, patient remains on broad-spectrum antibiotics bronchodilators and IV steroids slowly responding 04/06/2018, patient seen eval examined during the rounds clinically patient has been doing slightly better still have shortness breath on activity and exertion feels chest is less congested now remains on IV steroids breathing treatments and antibiotics 04/05/2018, please refer to my dictated report 04/04/2018, patient seen eval examined during the rounds clinically patient is still short of breath cough congestion get symptomatic with 2-3 steps predominantly cough is dry and nonproductive denies any chest pain or radiation of pain though appetite and sleep however has improved a bit 04/03/2018, patient seen eval reexamined during the rounds clinically still very short of breath have difficult time and moving around cannot take more than 3 or 4 steps, chest x-ray failed to reveal any significant new changes small pleural effusion on the left side cannot be excluded no new pneumonia is seen suspect current changes are due to COPD exacerbation, patient however require slight higher FiO2 baseline is 3 L now she is on 5 L nasal cannula with that she feels slightly better off of oxygen sats drop down into mid 80s to low 80s Adalid would recommend to do a d-dimer if elevated consider doing a spiral CT scan of the chest Adalid will put patient on DVT and peptic ulcer disease prophylaxis as well 82-year-old female who was seen evaluated examined on fifth floor this patient has chronic hypoxic respirator failure has been on home oxygen patient developed problems increased cuff congestion shortness of breath about a week ago has been progressive came into the emergency department seen evaluated examined and admitted into the hospital, she does have a significant history of the seizure disorder and stroke about a year ago, patient is still actively smoking Objective - Vital Signs Vital signs: Vital Signs Temp 98.8 F 04/09/18 14:57 Pulse 84 04/09/18 15:41 Resp 20 04/09/18 14:57 BP 145/64 04/09/18 14:57 Pulse Ox 87 L 04/09/18 14:57 Intake & Output 04/08/18 04/09/18 04/09/18 18:59 06:59 18:59 Intake Total 900 Balance 900 Weight 63 kg Intake: Oral 900 Other: Voiding Method Toilet # Voids 2 1 1 - Exam General appearance: alert, in no apparent distress Head exam: Present: atraumatic, normocephalic Eye exam: Present: normal appearance, PERRL ENT exam: Present: normal exam Neck exam: Present: normal inspection. Absent: tenderness Respiratory exam: Present: respiratory distress, wheezes, rhonchi Cardiovascular Exam: Present: regular rate, normal rhythm GI/Abdominal exam: Present: soft. Absent: distended, tenderness, guarding Extremities exam: Present: normal inspection, normal capillary refill. Absent: pedal edema, calf tenderness Neurological exam: Present: alert, oriented X3, CN II-XII intact. Absent: motor sensory deficit Psychiatric exam: Present: normal affect, normal mood Skin exam: Present: warm, dry, intact. Absent: cyanosis, diaphoretic - Labs CBC & Chem 7: 04/07/18 09:05 04/07/18 09:05 Labs: Abnormal Lab Results - Last 24 Hours (Table) 04/08/18 04/09/18 04/09/18 Range/Units 20:52 00:04 07:11 POC Glucose (mg/dL) 338 H 247 H 282 H (75-99) mg/dL 04/09/18 Range/Units 11:32 POC Glucose (mg/dL) 169 H (75-99) mg/dL Microbiology - Last 24 Hours (Table) 04/02/18 17:00 Blood Culture - Final Blood No Growth after 144 hours Assessment and Plan Assessment: Left lower lobe pneumonia and atelectasis with posterior deviation of the major fissure endobronchial mass cannot be excluded patient would likely need a bronchoscopy and bronchial biopsy Acute COPD exacerbation Chronic bronchiectasis with acute worsening Acute on chronic hypoxic respirator failure, with higher FiO2 requirement than baseline History of recent pneumonia Hypertension hypertensive cardiovascular disease Dyslipidemia History of prior stroke Chronic anemia Plan: Reviewed computed tomography scan of the chest without contrast Bronchoscopy sometime next week Bronchodilator Continue home medications Broad spectrum antibiotics IV steroids Peptic ulcer disease prophylaxis and DVT prophylaxis Further recommendations pending plan of care as per clinical response of the patient Time with Patient: Greater than 30
[2018-04-09] MEDS: MONTELUKAST 10 MG TAB PO SCH (20:39)
[2018-04-09] MEDS: ATORVASTATIN 40 MG TAB PO SCH (20:39)
[2018-04-09 20:53] LABS: Glucose,Whole Blood 247 mg/dL (75-99)
[2018-04-09] MEDS: INSULIN DETEMIR 100 UNIT/ML 10 ML VIAL SQ SCH (22:01)
[2018-04-10] MEDS: methylPREDNISolone SOD SUCCI 125 MG/2 ML VIAL IV SCH ×5 (00:13→22:59)
[2018-04-10] MEDS: IPRATROPIUM-ALBUTEROL 3 ML NEB INHALATION SCH ×4 (07:25→20:02)
[2018-04-10] MEDS: SYMBICORT 160-4.5 MCG INHALER INHALATION SCH ×2 (07:25→20:02)
[2018-04-10] MEDS: INSULIN ASPART 100 UNIT/ML 1 ML 10 ML VIAL SQ SCH ×4 (07:44→21:14)
[2018-04-10] MEDS: ASPIRIN 81 MG PO SCH (07:45)
[2018-04-10] MEDS: HEPARIN SODIUM,PORCINE 5,000 UNIT/ML 1 ML VIAL SQ SCH ×2 (07:45→20:43)
[2018-04-10] MEDS: LEVOFLOXACIN 250 MG TAB PO SCH (07:47)
[2018-04-10] MEDS: MULTIVITAMINS, THERA 1 EACH TAB PO SCH (07:47)
[2018-04-10] MEDS: FERROUS SULFATE 325 MG TAB PO SCH (07:47)
[2018-04-10] MEDS: PANTOPRAZOLE 40 MG TABLET PO SCH (07:47)
[2018-04-10] MEDS: LISINOPRIL-HCTZ 20-25 MG 1 EACH TAB PO SCH (07:47)
[2018-04-10] MEDS: CHOLECALCIFEROL 1,000 UNIT TAB PO SCH (07:47)
[2018-04-10 07:48] LABS: Glucose,Whole Blood 206 mg/dL (75-99)
[2018-04-10 12:40] LABS: Glucose,Whole Blood 258 mg/dL (75-99)
[2018-04-10] MEDS: PIPERACILLIN-TAZOBACTAM 3.375 GM in DEXTROSE/WATER 1 50ML.BAG IVPB SCH ×2 (16:22→22:59)
[2018-04-10 17:25] LABS: Glucose,Whole Blood 140 mg/dL (75-99)
[2018-04-10] MEDS: MONTELUKAST 10 MG TAB PO SCH (20:43)
[2018-04-10] MEDS: ATORVASTATIN 40 MG TAB PO SCH (20:43)
[2018-04-10 21:06] LABS: Glucose,Whole Blood 347 mg/dL (75-99)
[2018-04-10 21:06] LABS: Glucose,Whole Blood 322 mg/dL (75-99)
[2018-04-10] MEDS: INSULIN DETEMIR 100 UNIT/ML 10 ML VIAL SQ SCH (21:14)
[2018-04-10] MEDS: guaiFENesin 600 MG TABLET.ER PO PRN (21:14)
[2018-04-11] MEDS: methylPREDNISolone SOD SUCCI 125 MG/2 ML VIAL IV SCH ×4 (05:22→23:30)
[2018-04-11] MEDS: CHOLECALCIFEROL 1,000 UNIT TAB PO SCH (07:14)
[2018-04-11] MEDS ORDERED: ACETAMINOPHEN TAB 325 MG TAB PO PRN (07:15)
[2018-04-11] MEDS: LISINOPRIL-HCTZ 20-25 MG 1 EACH TAB PO SCH (07:17)
[2018-04-11] MEDS: PIPERACILLIN-TAZOBACTAM 3.375 GM in DEXTROSE/WATER 1 50ML.BAG IVPB SCH ×3 (07:18→23:30)
[2018-04-11] MEDS: ASPIRIN 81 MG PO SCH (07:18)
[2018-04-11] MEDS: PANTOPRAZOLE 40 MG TABLET PO SCH (07:18)
[2018-04-11] MEDS: FERROUS SULFATE 325 MG TAB PO SCH (07:18)
[2018-04-11] MEDS: MULTIVITAMINS, THERA 1 EACH TAB PO SCH (07:18)
[2018-04-11] MEDS: HEPARIN SODIUM,PORCINE 5,000 UNIT/ML 1 ML VIAL SQ SCH ×2 (07:18→20:16)
[2018-04-11] MEDS: SYMBICORT 160-4.5 MCG INHALER INHALATION SCH ×2 (07:22→19:25)
[2018-04-11] MEDS: IPRATROPIUM-ALBUTEROL 3 ML NEB INHALATION SCH ×4 (07:22→19:26)
[2018-04-11 07:57] LABS: Glucose,Whole Blood 174 mg/dL (75-99)
[2018-04-11] MEDS: INSULIN ASPART 100 UNIT/ML 1 ML 10 ML VIAL SQ SCH ×4 (08:15→20:54)
--- NOTE | 2018-04-11 09:39 | P.PN ---
Subjective Progress Note Date: 04/10/18 (Late entry note) Principal diagnosis: Left lower lobe pneumonia, Acute COPD exacerbation, acute on chronic hypoxic respirator failure, recent pneumonia, hypertension hypertensive cardiovascular disease, dyslipidemia, history of CVA, chronic anemia left lower lobe atelectasis and consolidation 04/10/2018, patient seen eval examined during the rounds notified by RN patient has been more short of breath than baseline FiO2 increase from 5 L to 6 L Zosyn has been added, reviewed computed tomography scan finding again on the CAT scan hard copies as well as with the patient will follow clinical course closely with antibiotics with further recommendations pending this is an option for simple inspection of the airway in bronchial washing and not to do a biopsy will discuss with patient further depending upon clinical course 04/09/2018, patient seen eval examined during the rounds patient does feel slightly more short of breath than baseline patient is currently on 5 L oxygen does get short of breath activity and exertion I have reviewed the computed tomography scan of the chest and reviewed finding with the patient and daughter present at the bedside given that patient is on 5 L oxygen carries a high risk of doing an emergent bronchoscopy on the other hand patient has been on Plavix as well if any endobronchial mass or growth is present then will likely need the biopsy the Plavix is being put on hold simple bronchoscopy can be considered without biopsy sometime once respiratory status is slightly more stable, complications including respiratory failure requiring ventilator support has been discussed with the patient as well in addition to needing complication associated with biopsy especially in the light of being on Plavix 04/08/2018, patient is actively undergoing chest PT complaining of chest pain, suspect patient has significant bronchiectasis patient likely will benefit from vest therapy, will evaluate the patient for bronchiectasis 04/07/2018, patient seen eval examined during the rounds is still S problem ongoing cough congestion shortness of breath chest tightness breathing remains difficult, patient remains on broad-spectrum antibiotics bronchodilators and IV steroids slowly responding 04/06/2018, patient seen eval examined during the rounds clinically patient has been doing slightly better still have shortness breath on activity and exertion feels chest is less congested now remains on IV steroids breathing treatments and antibiotics 04/05/2018, please refer to my dictated report 04/04/2018, patient seen eval examined during the rounds clinically patient is still short of breath cough congestion get symptomatic with 2-3 steps predominantly cough is dry and nonproductive denies any chest pain or radiation of pain though appetite and sleep however has improved a bit 04/03/2018, patient seen eval reexamined during the rounds clinically still very short of breath have difficult time and moving around cannot take more than 3 or 4 steps, chest x-ray failed to reveal any significant new changes small pleural effusion on the left side cannot be excluded no new pneumonia is seen suspect current changes are due to COPD exacerbation, patient however require slight higher FiO2 baseline is 3 L now she is on 5 L nasal cannula with that she feels slightly better off of oxygen sats drop down into mid 80s to low 80s Adalid would recommend to do a d-dimer if elevated consider doing a spiral CT scan of the chest Amgary will put patient on DVT and peptic ulcer disease prophylaxis as well 82-year-old female who was seen evaluated examined on fifth floor this patient has chronic hypoxic respirator failure has been on home oxygen patient developed problems increased cuff congestion shortness of breath about a week ago has been progressive came into the emergency department seen evaluated examined and admitted into the hospital, she does have a significant history of the seizure disorder and stroke about a year ago, patient is still actively smoking Objective - Vital Signs Vital signs: Vital Signs Temperature 97.3, heart rate is 87, saturation 96 % on 5 L oxygen, respiratory rate is 18 Intake & Output - Exam General appearance: alert, in no apparent distress Head exam: Present: atraumatic, normocephalic Eye exam: Present: normal appearance, PERRL ENT exam: Present: normal exam Neck exam: Present: normal inspection. Absent: tenderness Respiratory exam: Present: respiratory distress, wheezes, rhonchi bilaterally with predominantly during expiration Cardiovascular Exam: Present: regular rate, normal rhythm GI/Abdominal exam: Present: soft. Absent: distended, tenderness, guarding Extremities exam: Present: normal inspection, normal capillary refill. Absent: pedal edema, calf tenderness Neurological exam: Present: alert, oriented X3, CN II-XII intact. Absent: motor sensory deficit Psychiatric exam: Present: normal affect, normal mood Skin exam: Present: warm, dry, intact. Absent: cyanosis, diaphoretic - Labs CBC & Chem 7: 04/07/18 09:05 04/07/18 09:05 Labs: Abnormal Lab Results - Last 24 Hours (Table) 04/10/18 04/10/1818 Range/Units 12:37 17:23 20:59 POC Glucose (mg/dL) 258 H 140 H 322 H (75-99) mg/dL 04/10/18 04/11/18 Range/Units 21:01 07:33 POC Glucose (mg/dL) 347 H 174 H (75-99) mg/dL Assessment and Plan Assessment: Left lower lobe pneumonia and atelectasis with posterior deviation of the major fissure endobronchial mass cannot be excluded patient would likely need a bronchoscopy and bronchial biopsy, however patient is on Plavix which is being held, eye symptoms of bronchoscopy with inspection intent and pulmonary toilet can however be performed earlier Acute COPD exacerbation Chronic bronchiectasis with acute worsening Acute on chronic hypoxic respirator failure, with higher FiO2 requirement than baseline History of recent pneumonia Hypertension hypertensive cardiovascular disease Dyslipidemia History of prior stroke Chronic anemia Plan: Reviewed computed tomography scan of the chest without contrast Bronchoscopy sometime next week, a biopsy however cannot be performed as patient has been on Plavix recently stopped Zosyn added, and adjust FiO2 as tolerated Bronchodilator Continue home medications Broad spectrum antibiotics IV steroids Peptic ulcer disease prophylaxis and DVT prophylaxis Further recommendations pending plan of care as per clinical response of the patient Time with Patient: Greater than 30
--- NOTE | 2018-04-11 09:42 | P.PN ---
Subjective Progress Note Date: 04/11/18 Principal diagnosis: Left lower lobe pneumonia, Acute COPD exacerbation, acute on chronic hypoxic respirator failure, recent pneumonia, hypertension hypertensive cardiovascular disease, dyslipidemia, history of CVA, chronic anemia left lower lobe atelectasis and consolidation 04/11/2018, clinically patient is slightly better today, her FiO2 is down to 3 L she still short of breath have discussed and expressed concern about finding on the CAT scan she would like to do and proceed with regular bronchoscopy without biopsy for inspection and pulmonary toilet content however if needed a repeat bronchoscopy and biopsy can be performed at a later date once the effect of Plavix resolved. We'll make patient nothing by mouth tonight and is scheduled bronchoscopy report tomorrow further recommendations pending as per finding on bronchoscopy, procedure explained to the patient at length again already previously explained to the daughter in previous visit 04/10/2018, patient seen eval examined during the rounds notified by RN patient has been more short of breath than baseline FiO2 increase from 5 L to 6 L Zosyn has been added, reviewed computed tomography scan finding again on the CAT scan hard copies as well as with the patient will follow clinical course closely with antibiotics with further recommendations pending this is an option for simple inspection of the airway in bronchial washing and not to do a biopsy will discuss with patient further depending upon clinical course 04/09/2018, patient seen eval examined during the rounds patient does feel slightly more short of breath than baseline patient is currently on 5 L oxygen does get short of breath activity and exertion I have reviewed the computed tomography scan of the chest and reviewed finding with the patient and daughter present at the bedside given that patient is on 5 L oxygen carries a high risk of doing an emergent bronchoscopy on the other hand patient has been on Plavix as well if any endobronchial mass or growth is present then will likely need the biopsy the Plavix is being put on hold simple bronchoscopy can be considered without biopsy sometime once respiratory status is slightly more stable, complications including respiratory failure requiring ventilator support has been discussed with the patient as well in addition to needing complication associated with biopsy especially in the light of being on Plavix 04/08/2018, patient is actively undergoing chest PT complaining of chest pain, suspect patient has significant bronchiectasis patient likely will benefit from vest therapy, will evaluate the patient for bronchiectasis 04/07/2018, patient seen eval examined during the rounds is still S problem ongoing cough congestion shortness of breath chest tightness breathing remains difficult, patient remains on broad-spectrum antibiotics bronchodilators and IV steroids slowly responding 04/06/2018, patient seen eval examined during the rounds clinically patient has been doing slightly better still have shortness breath on activity and exertion feels chest is less congested now remains on IV steroids breathing treatments and antibiotics 04/05/2018, please refer to my dictated report 04/04/2018, patient seen eval examined during the rounds clinically patient is still short of breath cough congestion get symptomatic with 2-3 steps predominantly cough is dry and nonproductive denies any chest pain or radiation of pain though appetite and sleep however has improved a bit 04/03/2018, patient seen eval reexamined during the rounds clinically still very short of breath have difficult time and moving around cannot take more than 3 or 4 steps, chest x-ray failed to reveal any significant new changes small pleural effusion on the left side cannot be excluded no new pneumonia is seen suspect current changes are due to COPD exacerbation, patient however require slight higher FiO2 baseline is 3 L now she is on 5 L nasal cannula with that she feels slightly better off of oxygen sats drop down into mid 80s to low 80s Amgary would recommend to do a d-dimer if elevated consider doing a spiral CT scan of the chest Amgary will put patient on DVT and peptic ulcer disease prophylaxis as well 82-year-old female who was seen evaluated examined on fifth floor this patient has chronic hypoxic respirator failure has been on home oxygen patient developed problems increased cuff congestion shortness of breath about a week ago has been progressive came into the emergency department seen evaluated examined and admitted into the hospital, she does have a significant history of the seizure disorder and stroke about a year ago, patient is still actively smoking Objective - Vital Signs Vital signs: Vital Signs Temp 97.0 F L 04/11/18 07:00 Pulse 100 04/11/18 07:35 Resp 18 04/11/18 08:26 BP 154/70 04/11/18 07:00 Pulse Ox 90 L 04/11/18 08:26 Intake & Output 04/10/18 04/11/18 04/11/18 18:59 06:59 18:59 Intake Total 500 Balance 500 Weight 63 kg Intake: Oral 500 Other: Voiding Method Toilet # Voids 2 3 - Exam General appearance: alert, in no apparent distress Head exam: Present: atraumatic, normocephalic Eye exam: Present: normal appearance, PERRL ENT exam: Present: normal exam Neck exam: Present: normal inspection. Absent: tenderness Respiratory exam: Present: respiratory distress, wheezes, rhonchi bilaterally with predominantly during expiration, however exam appears to improve compared to prior Cardiovascular Exam: Present: regular rate, normal rhythm GI/Abdominal exam: Present: soft. Absent: distended, tenderness, guarding Extremities exam: Present: normal inspection, normal capillary refill. Absent: pedal edema, calf tenderness Neurological exam: Present: alert, oriented X3, CN II-XII intact. Absent: motor sensory deficit Psychiatric exam: Present: normal affect, normal mood Skin exam: Present: warm, dry, intact. Absent: cyanosis, diaphoretic - Labs CBC & Chem 7: 04/07/18 09:05 04/07/18 09:05 Labs: Abnormal Lab Results - Last 24 Hours (Table) 04/10/18 04/10/18 04/10/18 Range/Units 12:37 17:23 20:59 POC Glucose (mg/dL) 258 H 140 H 322 H (75-99) mg/dL 04/10/18 04/11/18 Range/Units 21:01 07:33 POC Glucose (mg/dL) 347 H 174 H (75-99) mg/dL Assessment and Plan Assessment: Left lower lobe pneumonia and atelectasis with posterior deviation of the major fissure endobronchial mass cannot be excluded patient would likely need a bronchoscopy and bronchial biopsy, however patient is on Plavix which is being held, patient is being set up for diagnostic bronchoscopy and bronchoalveolar lavage inspection of the airway without biopsy Acute COPD exacerbation Chronic bronchiectasis with acute worsening Acute on chronic hypoxic respirator failure, with higher FiO2 requirement than baseline History of recent pneumonia Hypertension hypertensive cardiovascular disease Dyslipidemia History of prior stroke Chronic anemia Plan: Reviewed computed tomography scan of the chest without contrast Bronchoscopy and bronchial washing tomorrow, a biopsy however cannot be performed as patient has been on Plavix recently stopped Zosyn to be continued and titrated down FiO2 as tolerated Bronchodilator Continue home medications Broad spectrum antibiotics IV steroids Peptic ulcer disease prophylaxis and DVT prophylaxis Further recommendations pending plan of care as per clinical response of the patient Time with Patient: Greater than 30
--- NOTE | 2018-04-11 09:47 | P.PN ---
Subjective Progress Note Date: 04/10/18 Patient still feels congested although patient's saturations improved and the air entry into bilateral lung tracy and wheezing did improve. Patient is admitted for acute on chronic hypercapnic respiratory failure secondary to COPD exacerbation patient can use to smoke and systemic steroids inhalational treatments and levofloxacin at this time. No pneumonia. 04/05/2018 Patient does have improvement minimal 04/10/2018 CT Scan of the chest did show some mucous pluggging and will need a bronch. wheezing did improve. Constitutional: Denied any fatigue denied any fever. Cardio vascular: denied any chest pain, palpitations Gastrointestinal denied any nausea vomiting Pulmonary: As mentioned above Neurologic denied any new focal deficits Objective - Vital Signs Vital signs: Vital Signs Temp 97.0 F L 04/11/18 07:00 Pulse 100 04/11/18 07:35 Resp 18 04/11/18 08:26 BP 154/70 04/11/18 07:00 Pulse Ox 90 L 04/11/18 08:26 Intake & Output 04/10/18 04/11/18 04/11/18 18:59 06:59 18:59 Intake Total 500 Balance 500 Weight 63 kg Intake: Oral 500 Other: Voiding Method Toilet # Voids 2 3 - Exam PHYSICAL EXAMINATION: GENERAL: The patient is alert and oriented x3, not in any acute distress. Well developed, well nourished. HEENT: Pupils are round and equally reacting to light. EOMI. No scleral icterus. No conjunctival pallor. Normocephalic, atraumatic. No pharyngeal erythema. No thyromegaly. CARDIOVASCULAR: S1 and S2 present. No murmurs, rubs, or gallops. PULMONARY: Limited air entry into bilateral lung tracy significant expiratory wheezing on exam. Improved wheezing air entry into bilateral lung tracy compared to yesterday ABDOMEN: Soft, nontender, nondistended, normoactive bowel sounds. No palpable organomegaly. MUSCULOSKELETAL: No joint swelling or deformity. EXTREMITIES: No cyanosis, clubbing, or pedal edema. NEUROLOGICAL: Gross neurological examination did not reveal any focal deficits. SKIN: No rashes. - Labs CBC & Chem 7: 04/07/18 09:05 04/07/18 09:05 Labs: Abnormal Lab Results - Last 24 Hours (Table) 04/10/18 04/10/18 04/10/18 Range/Units 12:37 17:23 20:59 POC Glucose (mg/dL) 258 H 140 H 322 H (75-99) mg/dL 04/10/18 04/11/18 Range/Units 21:01 07:33 POC Glucose (mg/dL) 347 H 174 H (75-99) mg/dL Assessment and Plan Plan: Acute on chronic hypercapnic respiratory failure secondary to COPD exacerbation and use to smoke: Extensive smoking cessation counseling was provided patient was started on systemic steroids and inhalational treatments pulmonology evaluated the patient patient is presently on levofloxacin andis on inhalational treatments.Does have mucous plugging and will need bronch -Essential hypertension -Hyperlipidemia -History of previous strokes -Chronic anemia and anemia of chronic disease
[2018-04-11 12:26] LABS: Glucose,Whole Blood 342 mg/dL (75-99)
[2018-04-11] MEDS ORDERED: INSULIN REGULAR BOLUS (FROM DRIP BAG) IV ONE (12:32)
[2018-04-11] MEDS ORDERED: INSULIN DETEMIR 100 UNIT/ML 10 ML VIAL SQ ONE (12:38)
[2018-04-11] MEDS ORDERED: INSULIN REGULAR 100 UNIT in SODIUM CHLORIDE 0.9% 100 ML IV SCH (12:45)
[2018-04-11 17:18] LABS: Glucose,Whole Blood 229 mg/dL (75-99)
[2018-04-11] MEDS: ATORVASTATIN 40 MG TAB PO SCH (20:16)
[2018-04-11] MEDS: MONTELUKAST 10 MG TAB PO SCH (20:17)
--- NOTE | 2018-04-11 20:18 | P.PN ---
Subjective Patient still feels congested although patient's saturations improved and the air entry into bilateral lung tracy and wheezing did improve. Patient is admitted for acute on chronic hypercapnic respiratory failure secondary to COPD exacerbation patient can use to smoke and systemic steroids inhalational treatments and levofloxacin at this time. No pneumonia. 04/05/2018 Patient does have improvement minimal 04/10/2018 CT Scan of the chest did show some mucous pluggging and will need a bronch. wheezing did improve. 04/11/2018 pt is sitting in bed with oxygen saturation in mid 90s while on 3 L via NC. pt is not in distress. but still has harsh wheezing , pt is pending brochoscopy tomorrow for therapeutic goals. family at bed side Objective - Vital Signs Vital signs: Vital Signs Temp 97.0 F L 04/11/18 07:00 Pulse 88 04/11/18 11:19 Resp 18 04/11/18 08:26 BP 154/70 04/11/18 07:00 Pulse Ox 90 L 04/11/18 08:26 Intake & Output 04/10/18 04/11/18 04/11/18 18:59 06:59 18:59 Intake Total 500 Balance 500 Weight 63 kg Intake: Oral 500 Other: Voiding Method Toilet # Voids 2 3 - Exam GENERAL: The patient is alert and oriented x3, not in any acute distress. Well developed, well nourished. HEENT: Pupils are round and equally reacting to light. EOMI. No scleral icterus. No conjunctival pallor. Normocephalic, atraumatic. No pharyngeal erythema. No thyromegaly. CARDIOVASCULAR: S1 and S2 present. No murmurs, rubs, or gallops. -PULMONARY: Chest is clear to auscultation, no crackles. Bilateral scattered wheezing ABDOMEN: Soft, nontender, nondistended, normoactive bowel sounds. No palpable organomegaly. MUSCULOSKELETAL: No joint swelling or deformity. EXTREMITIES: No cyanosis, clubbing, or pedal edema. NEUROLOGICAL: Gross neurological examination did not reveal any focal deficits. SKIN: No rashes. - Labs CBC & Chem 7: 04/07/18 09:05 04/07/18 09:05 Labs: Abnormal Lab Results - Last 24 Hours (Table) 04/10/18 04/10/18 04/10/18 Range/Units 17:23 20:59 21:01 POC Glucose (mg/dL) 140 H 322 H 347 H (75-99) mg/dL 04/11/18 04/11/18 Range/Units 07:33 12:18 POC Glucose (mg/dL) 174 H 342 H (75-99) mg/dL Assessment and Plan Plan: Plan: -Acute on chronic hypercapnic respiratory failure secondary to COPD exacerbation and use to smoke: Extensive smoking cessation counseling was provided patient was started on systemic steroids and inhalational treatments pulmonology evaluated the patient patient is presently on levofloxacin and is on inhalational treatments.Does have mucous plugging and will need bronchoscopy -Hyperglycemia, no history of diabetes. Mostly related to steroid therapy. Continue with Levemir and sliding scale with higher doses -Essential hypertension -Hyperlipidemia -History of previous strokes -Chronic anemia and anemia of chronic disease
[2018-04-11] MEDS ORDERED: INSULIN DETEMIR 100 UNIT/ML 10 ML VIAL SQ SCH ×2 (21:00)
[2018-04-11 21:04] LABS: Glucose,Whole Blood 165 mg/dL (75-99)
[2018-04-11] MEDS: INSULIN DETEMIR 100 UNIT/ML 10 ML VIAL SQ SCH (21:04)
[2018-04-12] MEDS: methylPREDNISolone SOD SUCCI 125 MG/2 ML VIAL IV SCH ×3 (05:10→18:05)
[2018-04-12 07:47] LABS: Glucose,Whole Blood 167 mg/dL (75-99)
[2018-04-12 08:04] VITALS: RESP 18
[2018-04-12] MEDS: INSULIN ASPART 100 UNIT/ML 1 ML 10 ML VIAL SQ SCH ×4 (08:11→21:05)
[2018-04-12] MEDS: ASPIRIN 81 MG PO SCH (08:12)
[2018-04-12] MEDS: FERROUS SULFATE 325 MG TAB PO SCH (08:12)
[2018-04-12] MEDS: CHOLECALCIFEROL 1,000 UNIT TAB PO SCH (08:12)
[2018-04-12] MEDS: MULTIVITAMINS, THERA 1 EACH TAB PO SCH (08:12)
[2018-04-12] MEDS: PANTOPRAZOLE 40 MG TABLET PO SCH (08:13)
[2018-04-12] MEDS: HEPARIN SODIUM,PORCINE 5,000 UNIT/ML 1 ML VIAL SQ SCH ×2 (08:15→21:05)
[2018-04-12] MEDS: PIPERACILLIN-TAZOBACTAM 3.375 GM in DEXTROSE/WATER 1 50ML.BAG IVPB SCH ×3 (08:15→23:42)
[2018-04-12] MEDS: LISINOPRIL-HCTZ 20-25 MG 1 EACH TAB PO SCH (08:19)
[2018-04-12] MEDS: IPRATROPIUM-ALBUTEROL 3 ML NEB INHALATION SCH ×4 (08:27→19:18)
[2018-04-12] MEDS: SYMBICORT 160-4.5 MCG INHALER INHALATION SCH ×2 (08:28→19:18)
[2018-04-12 10:38] LABS: Calcium 7.4 mg/dL (8.4-10.2); Potassium 4.6 mmol/L (3.5-5.1)
[2018-04-12 11:12] LABS: Hemoglobin A1C 7.4 % (4.0-6.0)
[2018-04-12] MEDS ORDERED: LACTATED RINGERS 500 ML IV ONE (11:28)
[2018-04-12] MEDS ORDERED: PROPOFOL 10 MG/ML 20 ML VIAL IV ONE (11:28)
[2018-04-12] MEDS ORDERED: MIDAZOLAM 2 MG/2 ML VIAL ONE (11:28)
[2018-04-12] MEDS ORDERED: LIDOCAINE 2% INJ 20 MG/ML INTRATRACH ONE ×2 (11:32→11:52)
[2018-04-12 11:35] LABS: Glucose,Whole Blood 175 mg/dL (75-99)
[2018-04-12] MEDS ORDERED: ACETYLCYSTEINE IV 200 MG/ML 30 ML VIAL IV ONE (11:55)
[2018-04-12] MEDS ORDERED: SODIUM CHLORIDE 0.9% 500 ML IV ONE (12:10)
--- NOTE | 2018-04-12 12:49 | P.PN ---
Subjective Progress Note Date: 04/12/18 Principal diagnosis: Left lower lobe pneumonia, Acute COPD exacerbation, acute on chronic hypoxic respirator failure, recent pneumonia, hypertension hypertensive cardiovascular disease, dyslipidemia, history of CVA, chronic anemia left lower lobe atelectasis and consolidation 04/12/2018, patient seen eval examined during rounds clinically patient is doing better awake and alert is still short of breath cough congested feels impacted in the lungs but unable to bring up the phlegm patient is scheduled for bronchoscopy later on today procedure complication alternating side effects have been discussed multiple times with the patient as well as her daughter 04/11/2018, clinically patient is slightly better today, her FiO2 is down to 3 L she still short of breath have discussed and expressed concern about finding on the CAT scan she would like to do and proceed with regular bronchoscopy without biopsy for inspection and pulmonary toilet content however if needed a repeat bronchoscopy and biopsy can be performed at a later date once the effect of Plavix resolved. We'll make patient nothing by mouth tonight and is scheduled bronchoscopy report tomorrow further recommendations pending as per finding on bronchoscopy, procedure explained to the patient at length again already previously explained to the daughter in previous visit 04/10/2018, patient seen eval examined during the rounds notified by RN patient has been more short of breath than baseline FiO2 increase from 5 L to 6 L Zosyn has been added, reviewed computed tomography scan finding again on the CAT scan hard copies as well as with the patient will follow clinical course closely with antibiotics with further recommendations pending this is an option for simple inspection of the airway in bronchial washing and not to do a biopsy will discuss with patient further depending upon clinical course 04/09/2018, patient seen eval examined during the rounds patient does feel slightly more short of breath than baseline patient is currently on 5 L oxygen does get short of breath activity and exertion I have reviewed the computed tomography scan of the chest and reviewed finding with the patient and daughter present at the bedside given that patient is on 5 L oxygen carries a high risk of doing an emergent bronchoscopy on the other hand patient has been on Plavix as well if any endobronchial mass or growth is present then will likely need the biopsy the Plavix is being put on hold simple bronchoscopy can be considered without biopsy sometime once respiratory status is slightly more stable, complications including respiratory failure requiring ventilator support has been discussed with the patient as well in addition to needing complication associated with biopsy especially in the light of being on Plavix 04/08/2018, patient is actively undergoing chest PT complaining of chest pain, suspect patient has significant bronchiectasis patient likely will benefit from vest therapy, will evaluate the patient for bronchiectasis 04/07/2018, patient seen eval examined during the rounds is still S problem ongoing cough congestion shortness of breath chest tightness breathing remains difficult, patient remains on broad-spectrum antibiotics bronchodilators and IV steroids slowly responding 04/06/2018, patient seen eval examined during the rounds clinically patient has been doing slightly better still have shortness breath on activity and exertion feels chest is less congested now remains on IV steroids breathing treatments and antibiotics 04/05/2018, please refer to my dictated report 04/04/2018, patient seen eval examined during the rounds clinically patient is still short of breath cough congestion get symptomatic with 2-3 steps predominantly cough is dry and nonproductive denies any chest pain or radiation of pain though appetite and sleep however has improved a bit 04/03/2018, patient seen eval reexamined during the rounds clinically still very short of breath have difficult time and moving around cannot take more than 3 or 4 steps, chest x-ray failed to reveal any significant new changes small pleural effusion on the left side cannot be excluded no new pneumonia is seen suspect current changes are due to COPD exacerbation, patient however require slight higher FiO2 baseline is 3 L now she is on 5 L nasal cannula with that she feels slightly better off of oxygen sats drop down into mid 80s to low 80s Amgary would recommend to do a d-dimer if elevated consider doing a spiral CT scan of the chest Ammann will put patient on DVT and peptic ulcer disease prophylaxis as well 82-year-old female who was seen evaluated examined on fifth floor this patient has chronic hypoxic respirator failure has been on home oxygen patient developed problems increased cuff congestion shortness of breath about a week ago has been progressive came into the emergency department seen evaluated examined and admitted into the hospital, she does have a significant history of the seizure disorder and stroke about a year ago, patient is still actively smoking Objective - Vital Signs Vital signs: Vital Signs Temp 98.0 F 04/12/18 07:28 Pulse 96 04/12/18 08:39 Resp 18 04/12/18 07:28 BP 154/71 04/12/18 07:28 Pulse Ox 93 L 04/12/18 07:28 Intake & Output 04/11/18 04/12/18 04/12/18 18:59 06:59 18:59 Intake Total 250 Balance 250 Intake: IV 250 Other: Voiding Method Bedside Commode # Voids 1 2 - Exam General appearance: alert, in no apparent distress Head exam: Present: atraumatic, normocephalic Eye exam: Present: normal appearance, PERRL ENT exam: Present: normal exam Neck exam: Present: normal inspection. Absent: tenderness Respiratory exam: Present: respiratory distress, wheezes, rhonchi bilaterally with predominantly during expiration, however exam appears to improve compared to prior Cardiovascular Exam: Present: regular rate, normal rhythm GI/Abdominal exam: Present: soft. Absent: distended, tenderness, guarding Extremities exam: Present: normal inspection, normal capillary refill. Absent: pedal edema, calf tenderness Neurological exam: Present: alert, oriented X3, CN II-XII intact. Absent: motor sensory deficit Psychiatric exam: Present: normal affect, normal mood Skin exam: Present: warm, dry, intact. Absent: cyanosis, diaphoretic - Labs CBC & Chem 7: 04/07/18 09:05 04/12/18 07:50 Labs: Abnormal Lab Results - Last 24 Hours (Table) 04/07/18 04/11/18 04/11/18 Range/Units 09:05 17:12 20:53 Sodium (137-145) mmol/L Carbon Dioxide (22-30) mmol/L BUN (7-17) mg/dL Glucose (74-99) mg/dL POC Glucose (mg/dL) 229 H 165 H (75-99) mg/dL Hemoglobin A1c 7.4 H (4.0-6.0) % Calcium (8.4-10.2) mg/dL 04/12/18 04/12/18 04/12/18 Range/Units 07:26 07:50 11:21 Sodium 135 L (137-145) mmol/L Carbon Dioxide 32 H (22-30) mmol/L BUN 65 H (7-17) mg/dL Glucose 140 H (74-99) mg/dL POC Glucose (mg/dL) 167 H 175 H (75-99) mg/dL Hemoglobin A1c (4.0-6.0) % Calcium 7.4 L (8.4-10.2) mg/dL Assessment and Plan Assessment: Left lower lobe pneumonia and atelectasis with posterior deviation of the major fissure endobronchial mass cannot be excluded patient would likely need a bronchoscopy and bronchial biopsy, however patient is on Plavix which is being held, patient is being set up for diagnostic bronchoscopy and bronchoalveolar lavage inspection of the airway without biopsy Acute COPD exacerbation Chronic bronchiectasis with acute worsening Acute on chronic hypoxic respirator failure, with higher FiO2 requirement than baseline History of recent pneumonia Hypertension hypertensive cardiovascular disease Dyslipidemia History of prior stroke Chronic anemia Plan: Reviewed computed tomography scan of the chest without contrast Bronchoscopy and bronchial washing later on today, a biopsy however cannot be performed as patient has been on Plavix recently stopped Zosyn to be continued and titrated down FiO2 as tolerated Bronchodilator Continue home medications Broad spectrum antibiotics IV steroids Peptic ulcer disease prophylaxis and DVT prophylaxis Further recommendations pending plan of care as per clinical response of the patient Time with Patient: Greater than 30
--- NOTE | 2018-04-12 12:53 | P.PCN ---
Date of Procedure: 04/12/18 Preoperative Diagnosis: Left lower lobe pneumonia, endobronchial mass, mucoid impacted patient/mucous plugs in left lower lobe bronchus Postoperative Diagnosis: As above however no endobronchial masses seen Procedure(s) Performed: #1 bronchoscopy, #2 and he'll will lavage of the left lower lobe, therapeutic bronchoscopy with extraction and removal suctioning of multiple mucous plug from the left lower lobe Anesthesia: MAC Surgeon: Nam Ali Condition: stable Disposition: floor Indications for Procedure: As above Operative Findings: As below Description of Procedure: Patient prepared and draped in a usual fashion for anesthesia please refer to the anesthesia details, tip of the scope was passed through the right nares vocal cords were inspected there were normal structure and function tip of the scope was passed from the vocal cords into the trachea which was mildly in right meatus and 80 m tip of the scope was passed on the belkys which was sharp however extensive amount of mucus plugging were present predominantly on the left side as well as on the right side attempt to do a BAL but couldn't perform due to extensive mucus plugging they were impacting and clogging the suction port of the bronchoscope the scope was removed 5 times due to impacted patient and eventually cleaned and reinserted Mucomyst wasn't started as well. Bronchoalveolar lavage was performed from the left lower lobe tolerated very well, multiple thick tenacious mucous plugs were removed, after cleaning the lung area was thoroughly inspected no endobronchial mass or lesion was seen the findings were reviewed with the patient's daughter at length
[2018-04-12 17:03] LABS: Glucose,Whole Blood 290 mg/dL (75-99)
[2018-04-12 21:00] LABS: Glucose,Whole Blood 204 mg/dL (75-99)
[2018-04-12] MEDS: INSULIN DETEMIR 100 UNIT/ML 10 ML VIAL SQ SCH (21:05)
[2018-04-12] MEDS: MONTELUKAST 10 MG TAB PO SCH (21:05)
[2018-04-12] MEDS: ATORVASTATIN 40 MG TAB PO SCH (21:05)
[2018-04-13 06:47] VITALS: BP 119/65; PULSE 69; TEMP 98.2
[2018-04-13] MEDS: PIPERACILLIN-TAZOBACTAM 3.375 GM in DEXTROSE/WATER 1 50ML.BAG IVPB SCH (07:25)
[2018-04-13] MEDS: CHOLECALCIFEROL 1,000 UNIT TAB PO SCH ×2 (07:26→07:40)
[2018-04-13] MEDS: MULTIVITAMINS, THERA 1 EACH TAB PO SCH (07:26)
[2018-04-13] MEDS: FERROUS SULFATE 325 MG TAB PO SCH (07:26)
[2018-04-13] MEDS: ASPIRIN 81 MG PO SCH (07:27)
[2018-04-13] MEDS: PANTOPRAZOLE 40 MG TABLET PO SCH (07:27)
[2018-04-13] MEDS: LISINOPRIL-HCTZ 20-25 MG 1 EACH TAB PO SCH (07:27)
[2018-04-13] MEDS: HEPARIN SODIUM,PORCINE 5,000 UNIT/ML 1 ML VIAL SQ SCH (07:28)
[2018-04-13] MEDS: INSULIN ASPART 100 UNIT/ML 1 ML 10 ML VIAL SQ SCH (07:39)
[2018-04-13 07:47] LABS: Glucose,Whole Blood 66 mg/dL (75-99)
[2018-04-13 08:04] LABS: Glucose,Whole Blood 125 mg/dL (75-99)
[2018-04-13] MEDS: SYMBICORT 160-4.5 MCG INHALER INHALATION SCH (08:34)
[2018-04-13] MEDS: IPRATROPIUM-ALBUTEROL 3 ML NEB INHALATION SCH ×2 (08:34→11:48)
[2018-04-13] MEDS ORDERED: methylPREDNISolone SOD SUCCI 40 MG/ML 1 ML VIAL IV SCH (09:00)
[2018-04-13 09:25] LABS: Potassium 4.3 mmol/L (3.5-5.1)
--- NOTE | 2018-04-13 09:48 | PN ---
PROGRESS NOTE DATE OF SERVICE: 04/12/2018. PRESENTING COMPLAINT: Short of breath. INTERVAL HISTORY: This is a patient who presented with acute COPD exacerbation, acute asthma, respiratory failure. Today underwent a bronchoscopy, multiple mucus plugs were removed. Breathing is much better. Slight cough is present. Patient did tolerate a diet. Sitting up at the edge of the bed. REVIEW OF SYSTEMS: Done for constitutional, cardiovascular, GI, pulmonary; relevant findings as above. CURRENT MEDICATIONS: Reviewed that include DuoNeb, Symbicort, IV Solu-Medrol, IV Zosyn, Levemir. PHYSICAL EXAMINATION: Temperature 98, pulse 97, respiratory 18, blood pressure 137/68, pulse ox 96% on 3 L. GENERAL APPEARANCE: Sitting up, awake. EYES: Pupils equal, conjunctivae are normal. HEENT: External appearance of nose and ears normal. Oral cavity normal. NECK: JVD not raised. Mass not palpable. RESPIRATORY: Effort normal. LUNGS: Decreased breath sounds, some wheezing. CARDIOVASCULAR: First and second sounds, no edema. ABDOMEN: Soft, nontender. Liver and spleen not palpable. PSYCHIATRY: Alert and oriented x3. Mood and affect is normal. INVESTIGATIONS: Potassium 4.6, BUN 65, creatinine 0.83. Accu-Cheks noted 175, 290, 204. Bronchial washings pending. ASSESSMENT: 1. Acute severe chronic obstructive pulmonary disease exacerbation in a smoker. 2. Chronic nicotine dependence. 3. Essential hypertension. 4. Primary osteoarthritis of multiple joints. 5. Chronic hypoxic respiratory failure on home oxygen 2 L from underlying chronic obstructive pulmonary disease. 6. Hyperglycemia secondary to steroids. 7. Acute hypoxic respiratory failure. 8. Left lower lobe pneumonia, suspect gram-negative organism, status post bronchoscopy. 9. Chronic bronchiectasis with acute flare up per Pulmonary. PLAN: Patient overall doing much better. Continue current medication: Steroids will be cut back back. Care was discussed with the patient. MMODL / IJN: [id number] /
[2018-04-13 12:23] LABS: Glucose,Whole Blood 136 mg/dL (75-99)
--- NOTE | 2018-04-13 23:23 | DS ---
DISCHARGE SUMMARY DATE OF ADMISSION: April 02, 2018. DATE OF DISCHARGE: April 13, 2018. FINAL DIAGNOSES: 1. Acute severe chronic obstructive pulmonary disease exacerbation in a current smoker. 2. Chronic nicotine dependence. 3. Essential hypertension. 4. Primary osteoarthritis multiple joints. 5. Chronic hypoxic respiratory failure on home oxygen 2 L from underlying chronic obstructive pulmonary disease. 6. Hyperglycemia secondary to steroids. 7. Acute hypoxic respiratory failure from chronic obstructive pulmonary disease exacerbation. 8. Left lower lobe pneumonia suspect gram-negative organism, status post bronchoscopy. Mucous plugs removed. 9. Chronic bronchiectasis with acute flare up as per Pulmonary. CONSULTATION: Dr. Eddi Ramos from Pulmonary. HOSPITAL COURSE: This patient presented with COPD and acute bronchitis, bronchiectasis exacerbation on chronic, did undergo bronchoscopy. Several mucous plugs were removed. Patient felt remarkably better after the same. The patient's bronchial washing cultures are all pending. The patient is cleared by Dr. Reyes to go home. EXAMINATION: Temperature 98.2, pulse 69, respiratory 18, blood pressure 119/65, pulse ox 99 percent on 3 L. On exam, lungs decreased breath sounds. Cardiovascular: 1st and 2nd sounds normal. Creatinine is 1.012. Discussion and discharge planning more than 35 minutes. DISCHARGE MEDICATIONS: 1. Aspirin 81 mg a day. 2. Lipitor 40 mg q.h.s. 3. Symbicort 160/4.5, 2 puffs b.i.d. 4. Vitamin D3 5000 units p.o. daily. 5. Plavix 75 mg p.o. daily. 6. Iron 325 mg p.o. daily. 7. Zestoretic 20/25 two tablets p.o. daily. 8. Tudorza Pressair 1 puff p.o. b.i.d. 9. Ventolin HFA 2 puffs q.6h p.r.n. 10.Calcium carbonate 1000 mg p.o. daily. 11. 0.05% solution 1 p.r.n. 12. 50 mg every month. 13.Multivitamin 1 tablet p.o. daily. 14.Singulair 10 mg p.o. q.h.s. 15.Prednisone 40 mg for 1 day, 30 mg for 1 day, 20 mg a day and then continue chronic dose. 16.DuoNeb q.i.d. 17.Augmentin 875 1 tab q.12h 10 tablets. FOLLOW UP: Follow up with Dr. Thomson on 04/20/18. Followup with Dr. Nam Reyes in 1 week. Discussion discharge planning more than [address] Thomson. KENNY / IJN: [id number] /
== END 2018-04-13 12:42 | disposition home or self-care (01) | DRG 163 ==
LOC: EC 16:34 → 4MS4W 18:58
PROVIDERS: ADMIT Hospitalist; ATTEND Hospitalist
PROC: 0B9J8ZX Drainage of Left Lower Lung Lobe, Via Natural or Artificial Opening Endoscopic, Diagnostic (ICD-10-PCS; 2018-04-12)
PROC: 0BCJ8ZZ Extirpation of Matter from Left Lower Lung Lobe, Via Natural or Artificial Opening Endoscopic (ICD-10-PCS; principal; 2018-04-12 07:30)
DX: J44.1 Chronic obstructive pulmonary disease with (acute) exacerbation (principal); J96.21 Acute and chronic respiratory failure with hypoxia; J15.6 Pneumonia due to other Gram-negative bacteria; J96.22 Acute and chronic respiratory failure with hypercapnia; J98.11 Atelectasis; T17.890A Other foreign object in other parts of respiratory tract causing asphyxiation, initial encounter; J44.0 Chronic obstructive pulmonary disease with (acute) lower respiratory infection; D63.8 Anemia in other chronic diseases classified elsewhere; E78.5 Hyperlipidemia, unspecified; F41.1 Generalized anxiety disorder; G40.909 Epilepsy, unspecified, not intractable, without status epilepticus; I11.9 Hypertensive heart disease without heart failure; J20.9 Acute bronchitis, unspecified; M15.9 Polyosteoarthritis, unspecified; T38.0X5A Adverse effect of glucocorticoids and synthetic analogues, initial encounter; Z87.01 Personal history of pneumonia (recurrent); R73.9 Hyperglycemia, unspecified; Z79.02 Long term (current) use of antithrombotics/antiplatelets; Z79.51 Long term (current) use of inhaled steroids; Z79.82 Long term (current) use of aspirin; Z79.899 Other long term (current) drug therapy; Z79.52 Long term (current) use of systemic steroids; Z99.81 Dependence on supplemental oxygen; Z86.73 Personal history of transient ischemic attack (TIA), and cerebral infarction without residual deficits; Z98.42 Cataract extraction status, left eye; Z98.41 Cataract extraction status, right eye; Z96.1 Presence of intraocular lens; Z87.891 Personal history of nicotine dependence; Z71.6 Tobacco abuse counseling; Z83.3 Family history of diabetes mellitus
CPT/HCPCS: 31624; 36415; 71046; 71250; 80048; 80053; 82550; 82553; 83036; 83605; 83735; 83880; 84484; 85025; 85379; 85610; 85730; 87040; 87070; 87102; 87116; 87205; 87206; 87252; 87496; 87498; 87502; 87529; 87541; 87634; 87798; 88108; 88305; 93005; 94640; 94667; 94760; 96374; 99285

== ENCOUNTER → 2018-04-23 | Outpatient (CLI) | payer MEDICARE, BC ==
--- NOTE | 2018-04-23 14:09 | US ---
EXAMINATION TYPE: US venous doppler duplex LE DATE OF EXAM: 04/23/2018 1:51 PM COMPARISON: NONE CLINICAL HISTORY: I82.91 EMBOLISM AND THROMBOSIS OF VEIN. SIDE PERFORMED: Bilateral TECHNIQUE: The lower extremity deep venous system is examined utilizing real time linear array sonog lane with graded compression, doppler sonography and color-flow sonography. VESSELS IMAGED: External Iliac Vein (EIV) Common Femoral Vein Deep Femoral Vein Greater Saphenous Vein * Femoral Vein Popliteal Vein Small Saphenous Vein * Proximal Calf Veins (* superficial vessels) Patient unable to well adduct leg, poor venous return, technically difficult study. Right Leg: Appears negative for DVT. Left Leg: Appears negative for DVT. Preliminary results phoned to Dr. Reyes immediately following exam. IMPRESSION: 1. No diagnostic evidence of DVT as visualized.
== END | disposition home or self-care (01) ==
LOC: RADUSWWP 13:04
PROVIDERS: ATTEND Internal Medicine Sleep Medicine
DX: I82.91 Chronic embolism and thrombosis of unspecified vein (principal)
CPT/HCPCS: 93970

== ENCOUNTER 2018-10-02 12:09 | Emergency (ER) | payer MEDICARE, BC ==
[2018-10-02] MEDS ORDERED: LIDOCAINE 1%-EPI 1:100,000 20 ML VIAL SQ STA (13:04)
--- NOTE | 2018-10-02 13:08 | ED ---
Wound/Laceration HPI - General Chief Complaint: Wound/Laceration Stated Complaint: Fall Time Seen by Provider: 10/02/18 12:49 Source: patient, RN notes reviewed, old records reviewed Mode of arrival: wheelchair Limitations: no limitations - History of Present Illness Initial Comments: Patient is an 83-year-old female who presents emergency department today with chief complaint of tripping and falling. She reports she landed on bilateral knees. Patient reports a significant laceration over her right knee. She reports that she has full range of motion of the lower extremities and normal sensation distally. She is on Plavix. She reports that she's had uncontrollable bleeding over the right knee. Patient states that she has no head or neck injury. She denies any other injuries related to her fall. - Related Data Home Medications Medication Instructions Recorded Confirmed Aspirin [Adult Low Dose Aspirin EC] 81 mg PO DAILY 11/30/17 04/02/18 Atorvastatin [Lipitor] 40 mg PO HS 11/30/17 04/02/18 Budesonide-Formot 160-4.5 Mcg 2 puff INHALATION RT-BID 11/30/17 04/02/18 [Symbicort 160-4.5 Mcg Inhaler] Cholecalciferol [Vitamin D3] 5,000 unit PO DAILY 11/30/17 04/02/18 Clopidogrel Bisulfate [Plavix] 75 mg PO DAILY 11/30/17 04/02/18 Ferrous Sulfate [Iron (65 MG 325 mg PO DAILY 11/30/17 04/02/18 Elemental)] Lisinopril-Hctz 20-25 mg 2 tab PO DAILY 11/30/17 04/02/18 [Zestoretic 20-25] Aclidinium [place] [Tudorza 1 puff PO RT-BID 03/26/18 04/02/18 Pressair] Albuterol Inhaler [Ventolin Hfa 2 puff INHALATION RT-Q6H PRN 03/26/18 04/02/18 Inhaler] Calcium Carbonate 1,000 mg PO DAILY 03/26/18 04/02/18 Fluocinonide 0.05% Soln 1 dose BOTH EARS QID PRN 03/26/18 04/02/18 Ibandronate Sodium [Boniva] 150 mg PO QMONTH 03/26/18 04/02/18 Multivitamins, Thera [Multivitamin 1 tab PO DAILY 03/26/18 04/02/18 (formulary)] Ipratropium-Albuterol Nebulize 3 ml INHALATION RT-QID 04/02/18 04/02/18 [Duoneb 0.5 mg-3 mg/3 ml Soln] Previous Rx's Medication Instructions Recorded Montelukast [Singulair] 10 mg PO HS #30 tab 03/30/18 predniSONE 10 mg PO DAILY #30 tab 03/30/18 Amoxic-Pot Clav 875-125Mg 1 tab PO Q12HR #10 tablet 04/13/18 [Augmentin 875-125] predniSONE 10 mg PO DIRECTED #10 tab 04/13/18 Cephalexin [Keflex] 500 mg PO Q8HR #21 cap 10/02/18 Allergies Allergy/AdvReac Type Severity Reaction Status Date / Time No Known Allergies Allergy Verified 04/02/18 16:38 Review of Systems ROS Statement: Those systems with pertinent positive or pertinent negative responses have been documented in the HPI. ROS Other: All systems not noted in ROS Statement are negative. Past Medical History Past Medical History: COPD, CVA/TIA, Hypertension, Osteoarthritis (OA), Pneumonia, Vascular Disorder Additional Past Medical History / Comment(s): Jul 2017-seizure in EC, stroke 01/20/17-no effects, arthritis in neck, "dermatitis in [place] ears", 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 History of Any Multi-Drug Resistant Organisms: None Reported Additional Past Surgical History / Comment(s): gu[place] carotid endarterectomy, [place] cataracts, angiogram/arthrectomy/balloon angioplasty rt sfa Past Anesthesia/Blood Transfusion Reactions: No Reported Reaction Past Psychological History: No Psychological Hx Reported Smoking Status: Current every day smoker Past Alcohol Use History: None Reported Past Drug Use History: None Reported - Past Family History Daughter(s) Family Medical History: Cancer Father Additional Family Medical History / Comment(s): brain anuerysm Mother Family Medical History: Diabetes Mellitus General Exam - General Exam Comments Initial Comments: This is a 83-year-old female. Alert and oriented 3. Patient appears in no significant distress. Limitations: no limitations General appearance: alert, in no apparent distress Head exam: Present: atraumatic, normocephalic, normal inspection Eye exam: Present: normal appearance, PERRL, EOMI. Absent: scleral icterus, c onjunctival injection, periorbital swelling ENT exam: Present: normal exam, mucous membranes moist Neck exam: Present: normal inspection. Absent: tenderness, meningismus, lymphadenopathy Respiratory exam: Present: normal lung sounds bilaterally. Absent: respiratory distress, wheezes, rales, rhonchi, stridor Cardiovascular Exam: Present: regular rate, normal rhythm, normal heart sounds. Absent: systolic murmur, diastolic murmur, rubs, gallop, clicks GI/Abdominal exam: Present: soft, normal bowel sounds. Absent: distended, tenderness, guarding, rebound, rigid Extremities exam: Present: normal inspection, full ROM, normal capillary refill. Absent: tenderness, pedal edema, joint swelling, calf tenderness Left Knee exam: Present: normal inspection, swelling, ecchymosis (Patient has a contusion measuring 6 cm x 7 cm over the left knee. Full range of motion noted.). Absent: full ROM Lower Leg exam: Present: normal inspection, full ROM Ankle exam: Present: normal inspection, full ROM Foot/Toe exam: Present: normal inspection, full ROM Right Upper Leg exam: Present: normal inspection, full ROM Knee exam: Present: full ROM, tenderness, laceration (Patient has a 10 cm flap laceration over the right patella. ). Absent: normal inspection Back exam: Present: normal inspection Neurological exam: Present: alert, oriented X3, CN II-XII intact Psychiatric exam: Present: normal affect, normal mood Skin exam: Present: warm, dry, intact, normal color. Absent: rash Course Vital Signs 10/02/18 12:34 Temperature 98.5 F Pulse Rate 85 Respiratory 16 Rate Blood Pressure 148/62 O2 Sat by Pulse 97 Oximetry Procedures - Laceration Laceration #1 Size (cm): 15 Description: flap Depth: involves muscle layer Anesthetic Used: lidocaine 1% Anesthesia Technique: local infiltration Amount (mls): 10 Pre-repair: wound explored, irrigated extensively Type of Sutures: nylon, vicryl Size of Sutures: 3-0, 4-0 Number of Sutures: 25 Technique: simple, interrupted Complications: bleeding Patient Tolerated Procedure: well, no complications Additional Comments: 5 Vicryl sutures and 20 nylon sutures were placed within the laceration. - Orthopedic Splinting/Casting Injury #1 Side: right Lower Extremity Injury Location: knee Lower Extremity Immobilizer: knee immobilizer Medical Decision Making - Medical Decision Making [id number] female presents return today after chief complaint of trip and fall. She landed on both knees. X-rays were completed negative for any acute fracture. She has a significant laceration over the right knee. Laceration is a flap irregular laceration with a skin tear. Wound was thoroughly irrigated and closed with 25 sutures. Complex laceration requiring myself and Víctor go PAC to close. Patient was placed in a knee immobilizer and Gregory wrap. We'll discharge Patient with prescription for Keflex and Tylenol 3 for pain. Patient advised follow up with her primary care provider for wound care management afterwards. Discussed suture care. All questions were answered and return parameters were discussed. - Radiology Data Radiology results: report reviewed Bilateral knee x-rays were completed. There is evidence of osseous urethritis bilaterally. Vascular calcifications are present bilaterally. Lateral joint space on the left mild the digits is less than the right. No fracture dislocation noted. Disposition Clinical Impression: Laceration of knee, Knee contusion Disposition: HOME SELF-CARE Condition: Good Instructions (If sedation given, give patient instructions): Laceration (ED) Additional Instructions: Please return to the emergency room in 8-10 days to have sutures removed. Please leave wound covered for the first 24-48 hours and then leave open to air after that time. Please use clean soap and water to clean the suture area to prevent scabbing over the top of your sutures. Please watch for any signs of infection which may include but not limited to increased pain, swelling, redness, fever or chills. Please return to the emergency room if any signs of infection do occur. Please return to the emergency room for any other concerns or complications. Patient should follow-up with your primary care doctor for wound evaluation in 2 days. Ambulate with a knee immobilizer. Also recommended using crutches. Prescriptions: Cephalexin [Keflex] 500 mg PO Q8HR #21 cap Is patient prescribed a controlled substance at d/c from ED?: No Referrals: Angel Thomson MD [Primary Care Provider] - 1-2 days Time of Disposition: 14:58
--- NOTE | 2018-10-02 13:29 | XR ---
EXAMINATION TYPE: XR knee complete bilateral , 6 VIEWS DATE OF EXAM ORDERED: 10/02/2018 HISTORY: Pain. COMPARISON: None. FINDINGS: There is vascular calcification present bilaterally. There is lateral joint space loss on the left and mild medial joint space loss in the right. No fracture, dislocation or joint effusion is seen. No radiopaque foreign body is seen. IMPRESSION: OSTEOARTHRITIS.
[2018-10-02] MEDS ORDERED: TOPICAL SKIN ADHESIVE 1 EACH AMP TOPICAL ONE (14:43)
[2018-10-02] MEDS ORDERED: ACET/COD 300 MG/30 MG STARTER PACK 6 TAB BTL PO STA (15:00)
[2018-10-02] MEDS ORDERED: DIPH,PERTUS(ACELL)TETVAC-LF 0.5 ML VIAL IM ONE (15:30)
[2018-10-02 15:34] VITALS: BP 143/59; PULSE 78; RESP 18; TEMP 98
== END 2018-10-02 15:33 | disposition home or self-care (01) ==
LOC: EC 12:09
DX: S81.011A Laceration without foreign body, right knee, initial encounter (principal); Z23 Encounter for immunization; J44.9 Chronic obstructive pulmonary disease, unspecified; I10 Essential (primary) hypertension; F17.200 Nicotine dependence, unspecified, uncomplicated; Z79.82 Long term (current) use of aspirin; Z79.51 Long term (current) use of inhaled steroids; Z79.02 Long term (current) use of antithrombotics/antiplatelets; Z79.899 Other long term (current) drug therapy; Z86.73 Personal history of transient ischemic attack (TIA), and cerebral infarction without residual deficits; W01.0XXA Fall on same level from slipping, tripping and stumbling without subsequent striking against object, initial encounter; Y92.009 Unspecified place in unspecified non-institutional (private) residence as the place of occurrence of the external cause
CPT/HCPCS: 12035; 90471; 90715; 99283

== ENCOUNTER → 2020-01-25 | Outpatient (CLI) | payer MEDICARE, BC ==
--- NOTE | 2020-01-25 17:05 | MR ---
EXAMINATION TYPE: MR cervical spine wo con DATE OF EXAM: 01/25/2020 COMPARISON: HISTORY: Spondylosis, Cervical radiculopathy CONTRAST: Performed utilizing 0 mL intravenous Gadavist gadolinium contrast. TECHNIQUE: Multiplanar multiecho imaging on a 3.0 Iram magnet is performed through the cervical spin e. FINDINGS: There is soft tissue thickening posterior to the dens. This has significant mass effect on the adjacent medulla. Stenosis at the foramen magnum and compression of the brainstem are evident. Si gnal change however is not identified. AP diameter is 0.6 cm. Soft tissue mass measures approximately 3.2 x 1.3 cm in size. Series 301 image 208. Additional workup is recommended. Contrast MRI cervical spine is recommended. C7-T1: Mild disc bulge has mild anterior thecal sac compression. This extends towards the right fora men. No cord contact or cord deformity is evident. No spinal canal stenosis is present.. C6-7: There is a right paracentral focal bulge with moderate anterior thecal sac compression. This cano s cord contact and some cord deformity. Diffuse residual disc bulge through the remaining portion of the disc level is evident. There is disc space narrowing. Severe left and moderate to severe right fo raminal stenosis from uncovertebral joint hypertrophy is present.. C5-6: Broad-based disc bulge has moderate anterior thecal sac compression. Cord contact is present. N o AP spinal canal stenosis present. Uncovertebral joint hypertrophy is foraminal narrowing.. C4-5: Broad-based disc bulge has moderate anterior thecal sac compression. This greater in the right paracentral region. Moderate to severe compression of the spinal cord to this level is present. AP di ameter is 0.6 cm. Uncovertebral joint hypertrophy is bilateral severe foraminal stenosis.. C3-4: Disc bulge has moderate anterior thecal sac flattening. Cord contact is evident. Some cord comp ression centrally may be present. Spinal canal narrowing is present with an AP diameter of 0.6 cm. Un covertebral joint hypertrophy has moderate bilateral foraminal stenosis. There is narrowing of the di sc height. C2-3: No focal disc herniation or significant disc bulge is evident. No spinal canal stenosis or santy ral foraminal stenosis is present. This is away from the foramen magnum mass. No cord contact or spin al canal stenosis is present. IMPRESSIONS: 1. Masslike area extending posterior to the dens and the tip of the clivus has significant mass effec t on the adjacent medulla. Neoplastic process could be considered. A meningioma should be considered. Recommend additional evaluation with contrast MRI. 2. Spinal canal stenosis due to disc bulging C3-4 and C4-5. 3. Disc bulging is also present C5-C6 through C7-T1 with milder sac compression. 4. Cord compression from the bulging disc is evident at C4-5 and to a milder degree C3-4. 5. Foraminal stenosis due to uncovertebral joint hypertrophy.
== END | disposition home or self-care (01) ==
LOC: RADMRIMAIN 13:59
PROVIDERS: ATTEND Registered Nurse Critical Care Medicine
DX: M48.02 Spinal stenosis, cervical region (principal); M47.812 Spondylosis without myelopathy or radiculopathy, cervical region
CPT/HCPCS: 72141

== ENCOUNTER → 2020-02-17 | Outpatient (CLI) | payer MEDICARE, BC ==
--- NOTE | 2020-02-17 20:22 | CT ---
EXAMINATION TYPE: CT cervical spine wo con DATE OF EXAM: 02/17/2020 COMPARISON: 01/25/2020 HISTORY: Neck pain, no known injury. CT DLP: 409 mGycm CONTRAST: None CT of the cervical spine is performed in the axial plane at 2 mm thick sections. Reconstructed image s in the coronal, and sagittal plane are reviewed on the computer. Exam is limited due to motion art ifact. FINDINGS: Faint isodense soft tissue is posterior to the dens appears to be compressing the spinal co rd at the foramen magnum. On this study this appears to be 0.7 cm in AP dimension and extends posteri or to the clivus. The osseous cortex appears intact. Meningioma remains within the differential. Carlos mmend contrast CT which will allow revisualization as well as reevaluation with less motion artifact. No acute fractures are evident. Vertebral body alignment is normal. Disc space narrowing is present throughout the cervical spine. This is greatest at the C4-5 level. C5 -6 C6-7 has severe narrowing with moderate to severe narrowing at C3-4. Some superior longitudinal li gament calcification be present Vertebral body heights are preserved. Uncovertebral joint hypertrophy is present C3-4 with severe left and moderate to severe right foramin al stenosis. Uncovertebral joint hypertrophy is severe foraminal stenosis bilaterally at C4-5 C5-6 mo re moderate foraminal narrowing is present C6-7 slightly greater on the left than the right. IMPRESSIONS: 1. There appears to be soft tissue density posterior to the dens with significant impression on the brainstem and spinal cord. Motion artifact limits the exam. Better visualization may be performed wi th a follow-up CT cervical spine with contrast which may also resolved motion artifact with a repeat study. Severe stenosis at the level of foramen magnum 0.7 cm is present. Meningioma remains primary w ithin the differential.
== END | disposition home or self-care (01) ==
LOC: RADCTMAIN 16:18
PROVIDERS: ATTEND Orthopaedic Surgery
DX: M48.02 Spinal stenosis, cervical region (principal)
CPT/HCPCS: 72125

== ENCOUNTER → 2022-01-09 | Outpatient (CLI) | payer MEDICARE, BC ==
--- NOTE | 2022-01-09 17:06 | US ---
EXAMINATION TYPE: US venous doppler duplex LE LT DATE OF EXAM: 01/09/2022 4:36 PM COMPARISON: US 2018 CLINICAL HISTORY: M79.605 PAIN LEFT LOWER LIMB. Left leg pain, patient on blood thinners SIDE PERFORMED: Left TECHNIQUE: The lower extremity deep venous system is examined utilizing real time linear array sonog lane with graded compression, doppler sonography and color-flow sonography. VESSELS IMAGED: Common Femoral Vein Deep Femoral Vein Greater Saphenous Vein * Femoral Vein Popliteal Vein Small Saphenous Vein * Proximal Calf Veins (* superficial vessels) Left Leg: Appears negative for DVT Grayscale, color doppler, spectral doppler imaging performed of the deep veins of the lower extremiti es. There is normal flow, compressibility, vascular waveforms. IMPRESSION: No evidence of left lower extremity deep vein thrombosis.
== END | disposition home or self-care (01) ==
LOC: RADUSWWP 16:13
PROVIDERS: ATTEND Family Medicine
DX: M79.605 Pain in left leg (principal)

== ENCOUNTER → 2022-01-24 | Outpatient (CLI) | payer MEDICARE, BC ==
--- NOTE | 2022-01-26 08:25 | US ---
EXAMINATION TYPE: US arterial LE multi level DATE OF EXAM: 01/24/2022 2:26 PM CLINICAL HISTORY: I70.211 CLAUDICATION R LEG. History of hyperlipidemia and hypertension posterior pr ior vascular surgery Doppler Waveforms: Right: Predominantly monophasic Left: Predominantly monophasic Pulse Volume Recording: Flattened on the right Ankle-Brachial Indices: Right: 0.69 Left: 0.86 Toe Brachial Indices: Right: 0.69 Left: 0.51 IMPRESSION: Diminished bilateral ROMY values greater on the right and diminished left sided TBI evalu ated with loss of phasicity. Abnormal study. At least moderate right-sided peripheral arterial diseas e is felt present. Follow-up advised.
== END | disposition home or self-care (01) ==
LOC: RADUSWWP 09:23
PROVIDERS: ATTEND Family Medicine
DX: I70.211 Atherosclerosis of native arteries of extremities with intermittent claudication, right leg (principal)
CPT/HCPCS: 93923

== ENCOUNTER 2023-05-22 07:32 | Day surgery (SDC) | payer MEDICARE, BC ==
[2023-05-21 09:56] VITALS: BMI 25.4
[~2023-05-22 07:32] MED LIST changes: -ALPRAZolam 0.25 MG TAB PO PRN; -ASPIRIN 325 MG TAB PO STA; +LACTATED RINGERS 1,000 ML IV SCH; -SODIUM CHLORIDE 0.9% 1,000 ML in EMPTY BAG 1 BAG IV ONE
[2023-05-22] MEDS ORDERED: hydrALAZINE HCL 20 MG/ML 1 ML VIAL IVP ONE (08:26)
[2023-05-22 08:42] VITALS: TEMP 98
[2023-05-22] MEDS ORDERED: PROPOFOL 10 MG/ML 20 ML VIAL IV ONE (08:42)
--- NOTE | 2023-05-22 09:05 | P.PCN ---
Date of Procedure: 05/22/23 Procedure(s) Performed: BRIEF HISTORY: Patient is a 87-year-old pleasant white female scheduled for an elective colonoscopy as a part of screening for colon cancer part/positive cologuard PROCEDURE PERFORMED: Colonoscopy with biopsy. PREOPERATIVE DIAGNOSIS: Screening for colon cancer/positive cologuard. IV sedation per Anesthesia. PROCEDURE: After informed consent was obtained, the patient, was brought into the endoscopy unit. IV sedation was administered by Anesthesia under continuous monitoring. Digital rectal examination was normal. Initially the Olympus CF-160 flexible video colonoscope was then inserted in the rectum, gradually advanced into the cecum without any difficulty. Careful examination was performed as the scope was gradually being withdrawn. Ileocecal valve and the appendiceal orifice were visualized and appeared normal. Prep was excellent. Mucosa of the cecum, appeared normal. In the ascending colon there was a 3 mm sessile polyp removed by cold biopsy. Rest of the ascending colon, transverse colon, descending colon, sigmoid colon, and rectum appeared normal. Retroflexion was performed in the rectum and no lesions were seen. The patient tolerated the procedure well. IMPRESSION: 3 mm ascending colon polyp status post cold biopsy Scattered sigmoid diverticulosis RECOMMENDATIONS: Findings of this examination were discussed with the patient as well as a family. She was advised to follow with the biopsy results. Continue with a high-fiber diet..
[2023-05-22 09:29] VITALS: BP 144/59; PULSE 68; RESP 18
== END 2023-05-22 10:03 | disposition home or self-care (01) ==
LOC: ORWHC2ENDO 07:32
PROVIDERS: ATTEND Internal Medicine Gastroenterology
DX: Z12.11 Encounter for screening for malignant neoplasm of colon (principal); D12.2 Benign neoplasm of ascending colon; K57.30 Diverticulosis of large intestine without perforation or abscess without bleeding; R19.5 Other fecal abnormalities; I10 Essential (primary) hypertension; I73.9 Peripheral vascular disease, unspecified; J44.9 Chronic obstructive pulmonary disease, unspecified; M50.90 Cervical disc disorder, unspecified, unspecified cervical region; I63.9 Cerebral infarction, unspecified; Z79.01 Long term (current) use of anticoagulants; Z79.02 Long term (current) use of antithrombotics/antiplatelets; Z79.82 Long term (current) use of aspirin; Z79.899 Other long term (current) drug therapy; Z98.42 Cataract extraction status, left eye; Z98.41 Cataract extraction status, right eye; Z98.890 Other specified postprocedural states
CPT/HCPCS: 88305; 45380; J0360; J2704

== ENCOUNTER 2023-07-31 10:11 | Observation (INO) | payer MEDICARE, BC ==
[2023-07-31 11:38] LABS: Basophils % (A) 0 %; Eosinophils # (A) 0.3 k/uL (0-0.7); Eosinophils % (A) 4 %; HCT 29.5 % (34.0-46.0); HGB 9.5 gm/dL (11.4-16.0); Hypochromasia Marked; Lymphocytes # (A) 0.7 k/uL (1.0-4.8); Lymphocytes % (A) 10 %; MCH 30.7 pg (25.0-35.0); MCHC 32.1 g/dL (31.0-37.0); MCV 95.8 fL (80.0-100.0); Mean Platelet Volume 7.5; Monocytes # (A) 0.3 k/uL (0-1.0); Monocytes % (A) 4 %; Neutrophils # (A) 5.8 k/uL (1.3-7.7); Neutrophils % (A) 81 %; Platelet Count 430 k/uL (150-450); RBC 3.08 m/uL (3.80-5.40); RDW 14.4 % (11.5-15.5); WBC 7.1 k/uL (3.8-10.6)
--- NOTE | 2023-07-31 11:54 | XR ---
EXAMINATION TYPE: XR chest 2V DATE OF EXAM: 07/31/2023 COMPARISON: 04/02/2018 HISTORY: Difficulty breathing, pneumonia TECHNIQUE: 2 view chest FINDINGS: Heart size is normal. Pulmonary vasculature is normal. Some mild increased lung markings at the right base appear chronic present previously. No suspicious focal consolidation is evident. IMPRESSION: 1. No acute pulmonary process.
[2023-07-31 11:58] LABS: ALT 13 U/L (4-34); AST 24 U/L (14-36); African American GFR (CKD) 48 (>60 ml/min/1.73 sqM); Albumin 3.4 g/dL (3.5-5.0); Alkaline Phosphatase 71 U/L (38-126); Anion Gap 9 mmol/L; Blood Urea Nitrogen 33 mg/dL (7-17); Calcium 8.1 mg/dL (8.4-10.2); Carbon Dioxide 24 mmol/L (22-30); Chloride 106 mmol/L (98-107); Glucose 145 mg/dL (74-99); Magnesium 2.3 mg/dL (1.6-2.3); Non-African American GFR(CKD) 42 (>60 ml/min/1.73 sqM); Potassium 4.6 mmol/L (3.5-5.1); Sodium 139 mmol/L (137-145); Total Bilirubin 0.3 mg/dL (0.2-1.3)
[2023-07-31 12:03] LABS: INR 0.9 (<1.2); Partial Thromboplastin Time 22.9 sec (22.0-30.0); Prothrombin Time 10.3 sec (10.0-12.5)
[2023-07-31 12:06] LABS: NT-Pro-B-Type Natriuretic Pept 310 pg/mL
[2023-07-31] MEDS ORDERED: IPRATROPIUM-ALBUTEROL 3 ML NEB INHALATION STA (12:20)
--- NOTE | 2023-07-31 12:23 | ED ---
General Adult HPI - General Chief complaint: Shortness of Breath Stated complaint: cough Time Seen by Provider: 07/31/23 12:10 Source: patient, RN notes reviewed Mode of arrival: ambulatory Limitations: no limitations - History of Present Illness Initial comments: Patient is a pleasant 88-year-old female presenting to the emergency department with concerns with cough. Symptoms been present for a couple weeks now. Patient denies having any dyspnea. Patient did see her doctor and was given nebulizer and antibiotics without improvement of symptoms. Cough occasionally has sputum. No fever. No leg pain or leg swelling. Patient has some fatigue. Patient does have history of COPD however does not normally use nebulizer - Related Data Home Medications Medication Instructions Recorded Confirmed Aspirin [Adult Low Dose Aspirin EC] 81 mg PO DAILY 11/30/17 05/22/23 Atorvastatin [Lipitor] 40 mg PO HS 11/30/17 05/22/23 Clopidogrel Bisulfate [Plavix] 75 mg PO DAILY 11/30/17 05/22/23 Ferrous Sulfate [Iron (65 MG 325 mg PO DAILY 11/30/17 05/22/23 Elemental)] Lisinopril-Hctz 20-25 mg 1 tab PO DAILY 11/30/17 05/22/23 [Zestoretic 20-25] Alendronate Sodium [Fosamax] 70 mg PO WEEKLY 05/21/23 05/22/23 Cholecalciferol [Vitamin D3 (25 25 mcg PO DAILY 05/21/23 05/22/23 Mcg = 1000 Iu)] amLODIPine [Norvasc] 10 mg PO DAILY 05/21/23 05/22/23 Allergies Allergy/AdvReac Type Severity Reaction Status Date / Time No Known Allergies Allergy Verified 07/31/23 10:31 Review of Systems ROS Statement: Those systems with pertinent positive or pertinent negative responses have been documented in the HPI. ROS Other: All systems not noted in ROS Statement are negative. Constitutional: Denies: fever, chills Eyes: Denies: eye pain ENT: Denies: ear pain Respiratory: Reports: as per HPI, cough. Denies: dyspnea Cardiovascular: Denies: chest pain Endocrine: Reports: fatigue Past Medical History Past Medical History: COPD, CVA/TIA, Hypertension, Osteoarthritis (OA), Pneumonia, Vascular Disorder Additional Past Medical History / Comment(s): Jul 2017-seizure due to high fever with the flu, stroke 01/20/17-no effects, arthritis in neck History of Any Multi-Drug Resistant Organisms: None Reported Additional Past Surgical History / Comment(s): guillermo carotid endarterectomy, guillermo cataracts, angiogram/arthrectomy/balloon angioplasty, cervical fusion Past Anesthesia/Blood Transfusion Reactions: No Reported Reaction Past Psychological History: No Psychological Hx Reported Smoking Status: Former smoker Past Alcohol Use History: None Reported Past Drug Use History: None Reported - Past Family History Daughter(s) Family Medical History: Cancer Father Additional Family Medical History / Comment(s): brain aneurysm Mother Family Medical History: Diabetes Mellitus General Exam Limitations: no limitations General appearance: alert, in no apparent distress Head exam: Present: normocephalic Eye exam: Present: normal appearance Neck exam: Present: normal inspection Respiratory exam: Present: wheezes Cardiovascular Exam: Present: regular rate, normal rhythm GI/Abdominal exam: Present: soft. Absent: tenderness Extremities exam: Present: normal inspection. Absent: pedal edema, calf tenderness Neurological exam: Present: alert Psychiatric exam: Present: normal affect, normal mood Skin exam: Present: normal color Course Vital Signs 07/31/23 07/31/23 10:26 11:50 Temperature 97.6 F Pulse Rate 78 70 Respiratory 20 20 Rate Blood Pressure 128/74 149/57 O2 Sat by Pulse 90 L 89 L Oximetry EKG Findings - EKG Results: EKG: interpreted by DANDY, sinus rhythm, normal axis, normal QRS, normal ST/T Medical Decision Making - Medical Decision Making Was pt. sent in by a medical professional or institution (, PA, DESIGN COORDINATOR, urgent care, hospital, or [facility]...) When possible be specific @ -Patient was sent in by Dr. Thomson office Did you speak to anyone other than the patient for history (EMS, parent, family, police, friend...)? What history was obtained from this source @ -Family is present and helps provide history including prolonged symptoms Did you review nursing and triage notes (agree or disagree)? Why? @ -I reviewed and agree with nursing and triage notes Were old charts reviewed (outside hosp., previous admission, EMS record, old EKG, old radiological studies, urgent care reports/EKG's, [facility] records)? Report findings @ -Previous chest x-ray reviewed. Differential Diagnosis (chest pain, altered mental status, abdominal pain women, abdominal pain men, vaginal bleeding, weakness, fever, dyspnea, syncope, headache, dizziness, GI bleed, back pain, seizure, CVA, palpatations, mental health, musculoskeletal)? @ -Differential Dyspnea: Coronary syndrome, arrhythmia, tamponade, asthma, COPD, pulmonary embolism, pneumonia, pneumothorax, pulmonary effusion, anaphylaxis, diabetic ketoacidosis, flailed chest, pulmonary contusion, diaphragmatic rupture, anemia, neuromuscul ar, this is not meant to be an all-inclusive list. EKG interpreted by me (3pts min.). @ -As above X-rays interpreted by me (1pt min.). @ -Chest x-ray shows no acute process CT interpreted by me (1pt min.). @ -None done U/S interpreted by me (1pt. min.). @ -None done What testing was considered but not performed or refused? (CT, X-rays, U/S, labs)? Why? @ -None What meds were considered but not given or refused? Why? @ -None Did you discuss the management of the patient with other professionals (professionals i.e. , PA, DESIGN COORDINATOR, lab, RT, psych nurse, social media editor, liquor rectifier, teacher, public safety officer, casework manager)? Give summary @ -Case was discussed with Dr. Moise, who will admit coming Dr. Thomson Was smoking cessation discussed for >3mins.? @ -No Was critical care preformed (if so, how long)? @ -No Were there social determinants of health that impacted care today? How? (Homelessness, low income, unemployed, alcoholism, drug addiction, transportation, low edu. Level, literacy, decrease access to med. care, long-term, rehab)? @ -No Was there de-escalation of care discussed even if they declined (Discuss DNR or withdrawal of care, Hospice)? DNR status @ -No What co-morbidities impacted this encounter? (DM, HTN, Smoking, COPD, CAD, Cancer, CVA, ARF, Chemo, Hep., AIDS, mental health diagnosis, sleep apnea, morbid obesity)? @ -None Was patient admitted / discharged? Hospital course, mention meds given and route, prescriptions, significant lab abnormalities, going to OR and other pertinent info. @ -Patient reevaluated. Patient and family updated. Patient will be admitted with oxygen and IV steroids Undiagnosed new problem with uncertain prognosis? @ -No Drug Therapy requiring intensive monitoring for toxicity (Heparin, Nitro, Insul in, Cardizem)? @ -No Were any procedures done? @ -No Diagnosis/symptom? @ -COVID-19 Acute, or Chronic, or Acute on Chronic? @ -Acute Uncomplicated (without systemic symptoms) or Complicated (systemic symptoms)? @ -Complicated with hypoxia Side effects of treatment? @ -No Exacerbation, Progression, or Severe Exacerbation? @ -No Poses a threat to life or bodily function? How? (Chest pain, USA, MD, pneumonia, PE, COPD, DKA, ARF, appy, cholecystitis, CVA, Diverticulitis, Homicidal, Suicidal, threat to staff... and all critical care pts) @ -No - Lab Data Result diagrams: 07/31/23 11:32 07/31/23 11:32 Lab Results 07/31/23 07/31/23 07/31/23 Range/Units 11:32 11:32 11:32 WBC 7.1 (3.8-10.6) k/uL RBC 3.08 L (3.80-5.40) m/uL Hgb 9.5 L (11.4-16.0) gm/dL Hct 29.5 L (34.0-46.0) % MCV 95.8 (80.0-100.0) fL MCH 30.7 (25.0-35.0) pg MCHC 32.1 (31.0-37.0) g/dL RDW 14.4 (11.5-15.5) % Plt Count 430 (150-450) k/uL MPV 7.5 Neutrophils % 81 % Lymphocytes % 10 % Monocytes % 4 % Eosinophils % 4 % Basophils % 0 % Neutrophils # 5.8 (1.3-7.7) k/uL Lymphocytes # 0.7 L (1.0-4.8) k/uL Monocytes # 0.3 (0-1.0) k/uL Eosinophils # 0.3 (0-0.7) k/uL Basophils # 0.0 (0-0.2) k/uL Hypochromasia Marked PT 10.3 (10.0-12.5) sec INR 0.9 (<1.2) APTT 22.9 (22.0-30.0) sec Sodium 139 (137-145) mmol/L Potassium 4.6 (3.5-5.1) mmol/L Chloride 106 (98-107) mmol/L Carbon Dioxide 24 (22-30) mmol/L Anion Gap 9 mmol/L BUN 33 H (7-17) mg/dL Creatinine 1.17 H (0.52-1.04) mg/dL Est GFR (CKD-EPI)AfAm 48 (>60 ml/min/1.73 sqM) Est GFR (CKD-EPI)NonAf 42 (>60 ml/min/1.73 sqM) Glucose 145 H (74-99) mg/dL Plasma Lactic Acid Manish (0.7-2.0) mmol/L Calcium 8.1 L (8.4-10.2) mg/dL Magnesium 2.3 (1.6-2.3) mg/dL Total Bilirubin 0.3 (0.2-1.3) mg/dL AST 24 (14-36) U/L ALT 13 (4-34) U/L Alkaline Phosphatase 71 (38-126) U/L NT-Pro-B Natriuret Pep 310 pg/mL Total Protein 6.0 L (6.3-8.2) g/dL Albumin 3.4 L (3.5-5.0) g/dL Influenza Type A (PCR) (Not Detectd) Influenza Type B (PCR) (Not Detectd) RSV (PCR) (Not Detectd) SARS-CoV-2 (PCR) (Not Detectd) 07/31/23 07/31/23 Range/Units 11:32 12:44 WBC (3.8-10.6) k/uL RBC (3.80-5.40) m/uL Hgb (11.4-16.0) gm/dL Hct (34.0-46.0) % MCV (80.0-100.0) fL MCH (25.0-35.0) pg MCHC (31.0-37.0) g/dL RDW (11.5-15.5) % Plt Count (150-450) k/uL MPV Neutrophils % % Lymphocytes % % Monocytes % % Eosinophils % % Basophils % % Neutrophils # (1.3-7.7) k/uL Lymphocytes # (1.0-4.8) k/uL Monocytes # (0-1.0) k/uL Eosinophils # (0-0.7) k/uL Basophils # (0-0.2) k/uL Hypochromasia PT (10.0-12.5) sec INR (<1.2) APTT (22.0-30.0) sec Sodium (137-145) mmol/L Potassium (3.5-5.1) mmol/L Chloride (98-107) mmol/L Carbon Dioxide (22-30) mmol/L Anion Gap mmol/L BUN (7-17) mg/dL Creatinine (0.52-1.04) mg/dL Est GFR (CKD-EPI)AfAm (>60 ml/min/1.73 sqM) Est GFR (CKD-EPI)NonAf (>60 ml/min/1.73 sqM) Glucose (74-99) mg/dL Plasma Lactic Acid Manish 0.9 (0.7-2.0) mmol/L Calcium (8.4-10.2) mg/dL Magnesium (1.6-2.3) mg/dL Total Bilirubin (0.2-1.3) mg/dL AST (14-36) U/L ALT (4-34) U/L Alkaline Phosphatase (38-126) U/L NT-Pro-B Natriuret Pep pg/mL Total Protein (6.3-8.2) g/dL Albumin (3.5-5.0) g/dL Influenza Type A (PCR) Not Detected (Not Detectd) Influenza Type B (PCR) Not Detected (Not Detectd) RSV (PCR) Not Detected (Not Detectd) SARS-CoV-2 (PCR) Detected A (Not Detectd) Disposition Clinical Impression: COVID-19 Disposition: ADMITTED IP TO THIS HOSP Is patient prescribed a controlled substance at d/c from ED?: No Referrals: Angel Thomson MD [Primary Care Provider] - 1-2 days Time of Disposition: 14:59
[2023-07-31] MEDS ORDERED: ALBUTEROL HFA INHALER INHALATION STA (13:50)
[2023-07-31] MEDS ORDERED: TIOTROPIUM 2.5 MCG INHALER INHALATION STA (13:51)
[2023-07-31] MEDS ORDERED: NALOXONE 0.4 MG/ML 1 ML VIAL IV PRN (14:55)
[2023-07-31] MEDS ORDERED: ALBUTEROL HFA INHALER INHALATION PRN (14:55)
[2023-07-31] MEDS ORDERED: DEXAMETHASONE SOD PHOSPHATE 10 MG/ML 1 ML VIAL IVP SCH (15:00)
[2023-07-31] MEDS: CHOLECALCIFEROL 125 MCG (5000 IU) TABLET PO SCH ×2 (16:26→16:27)
[2023-07-31] MEDS: SODIUM CHLORIDE 0.9% 1,000 ML IV SCH (16:26)
[2023-07-31] MEDS ORDERED: ONDANSETRON 4 MG/2 ML VIAL IVP PRN (16:28)
[2023-07-31] MEDS ORDERED: ACETAMINOPHEN TAB 325 MG TAB PO PRN (16:28)
[2023-07-31] MEDS ORDERED: MELATONIN 3 MG TABLET PO PRN (16:28)
[2023-07-31] MEDS ORDERED: BENZONATATE 100 MG CAP PO PRN (16:28)
[2023-07-31] MEDS ORDERED: HYDROcodone/APAP 5-325MG 1 EACH TAB PO PRN (16:28)
[2023-07-31] MEDS ORDERED: bisacodyL 5 MG TABLET.DR PO PRN (16:30)
--- NOTE | 2023-07-31 16:38 | P.HPIM ---
History of Present Illness H&P Date: 07/31/23 Patient is a 88-year-old female with hypertension, COPD, CVA without residual deficits, and osteoarthritis who presented to the emergency department with shortness of breath and possible pneumonia. She was initially being seen at [facility] when she was directed to the emergency department. On arrival here she was found to be 89% on room air. Initial laboratory analysis included CBC, coags, CMP, BNP which were remarkable for hemoglobin 9.5, BUN 33, creatinine 1.17. She tested positive for COVID-19. Chest x-ray showed no acute cardiopulmonary process. In the emergency d epartment she was given albuterol inhaler and dexamethasone. Arrangements were made for observation. Patient seen and examined at bedside. She reports that she has been feeling poorly for the last 3 weeks. She actually felt worse about a week ago with wheezing, shortness of breath. However she presented to [facility] today because she just has not been able to get out of her house for the last 3 weeks and she has been feeling very fatigued and weak. She reports consistent coughing that is now nonproductive, runny nose, decreased appetite, and generalized weakness. She also gets dizzy when she first goes to stand. She is surprised that she tested positive for COVID and feel that she may have had this start 3 weeks ago but just has not recovered well. Vital signs reviewed General: nontoxic, no distress, appears at stated age Derm: warm, dry Eyes: EOMI, no lid lag, anicteric sclera, pupils equal round reactive to light ENT: Nose and ears atraumatic, no thrush, + pharyngeal erythema, + dry mucus membranes Cardiovascular: S1S2 reg, no murmur, no edema, Lungs: clear to auscultation bilateral, no rhonchi, no rales, no wheeze, no accessory muscle use Abdominal: soft, nontender to palpation, no guarding, Ext: no gross muscle atrophy, no contractures Neuro: CN II-XII grossly intact, no focal neuro deficits Psych: Alert, oriented, appropriate affect Assessment/Plan: Acute hypoxic respiratory failure COVID-19 infection Acute kidney injury on chronic kidney disease stage III due to poor oral intake and dehydration - solumedrol 60 mg IV q 6 hours - consult pulm - symbicort 2 puffs twice daily 1604.5, albuterol inhaler 2 puffs 4 times daily and then every 2 hours as needed, Mucinex 600 mg every 12 hours, Tessalon Perles 100 mg 3 times daily as needed, Claritin 10 mg daily -Hold lisinopril hydrochlorothiazide -Normal saline at 75 cc/h Hypertension -Lisinopril hydrochlorothiazide on hold due to acute kidney injury -Norvasc 10 mg oral daily -Follow blood pressures Chronic: CVA without residual deficits-continue with aspirin 81 mg daily, Plavix 75 mg daily, and Lipitor 40 mg at night Osteoarthritis Imaging: Chest x-ray as reviewed by myself shows increased vascular markings with no acute process Data Review: As per HPI The patient is admitted with an anticipated less than 2 midnight stay of AE COPD Surrogate decision-maker: Daughter CODE STATUS:Full DVT prophylaxis: Lovenox Anticipated discharge date: in 24-[address]: home This dictation was prepared using [employer] voice recognition software. Though every attempt is made to correct errors during dictation some may still exist. Past Medical History Past Medical History: COPD, CVA/TIA, Hypertension, Osteoarthritis (OA), Pn eumonia, Vascular Disorder Additional Past Medical History / Comment(s): Jul 2017-seizure due to high fever with the flu, stroke 01/20/17-no effects, arthritis in neck History of Any Multi-Drug Resistant Organisms: None Reported Additional Past Surgical History / Comment(s): guillermo carotid endarterectomy, guillermo cataracts, angiogram/arthrectomy/balloon angioplasty, cervical fusion Past Anesthesia/Blood Transfusion Reactions: No Reported Reaction Past Psychological History: No Psychological Hx Reported Smoking Status: Former smoker Past Alcohol Use History: None Reported Past Drug Use History: None Reported - Past Family History Daughter(s) Family Medical History: Cancer Father Additional Family Medical History / Comment(s): brain aneurysm Mother Family Medical History: Diabetes Mellitus Medications and Allergies Home Medications Medication Instructions Recorded Confirmed Type Aspirin [Adult Low Dose Aspirin EC] 81 mg PO DAILY 11/30/17 05/22/23 History Atorvastatin [Lipitor] 40 mg PO HS 11/30/17 05/22/23 History Clopidogrel Bisulfate [Plavix] 75 mg PO DAILY 11/30/17 05/22/23 History Ferrous Sulfate [Iron (65 MG 325 mg PO DAILY 11/30/17 05/22/23 History Elemental)] Lisinopril-Hctz 20-25 mg 1 tab PO DAILY 11/30/17 05/22/23 History [Zestoretic 20-25] Alendronate Sodium [Fosamax] 70 mg PO WEEKLY 05/21/23 05/22/23 History Cholecalciferol [Vitamin D3 (25 25 mcg PO DAILY 05/21/23 05/22/23 History Mcg = 1000 Iu)] amLODIPine [Norvasc] 10 mg PO DAILY 05/21/23 05/22/23 History Allergies Allergy/AdvReac Type Severity Reaction Status Date / Time No Known Allergies Allergy Verified 07/31/23 10:31 Physical Exam Osteopathic Statement: *. No significant issues noted on an osteopathic structural exam other than those noted in the History and Physical/Consult. Vitals: Vital Signs Temp Pulse Resp BP Pulse Ox 07/31/23 16:24 77 20 146/45 96 07/31/23 11:50 70 20 149/57 89 L 07/31/23 10:26 97.6 F 78 20 128/74 90 L Intake and Output 07/31/23 07/31/23 07/31/23 06:59 14:59 22:59 Other: Weight 61.235 kg Results CBC & Chem 7: 07/31/23 11:32 07/31/23 11:32 Labs: Abnormal Lab Results - Last 24 Hours (Table) 07/31/23 07/31/23 07/31/23 Range/Units 11:32 11:32 12:44 RBC 3.08 L (3.80-5.40) m/uL Hgb 9.5 L (11.4-16.0) gm/dL Hct 29.5 L (34.0-46.0) % Lymphocytes # 0.7 L (1.0-4.8) k/uL BUN 33 H (7-17) mg/dL Creatinine 1.17 H (0.52-1.04) mg/dL Glucose 145 H (74-99) mg/dL Calcium 8.1 L (8.4-10.2) mg/dL Total Protein 6.0 L (6.3-8.2) g/dL Albumin 3.4 L (3.5-5.0) g/dL SARS-CoV-2 (PCR) Detected A (Not Detectd)
[2023-07-31] MEDS: ALBUTEROL HFA INHALER INHALATION SCH ×2 (16:47→19:46)
[2023-07-31] MEDS: methylPREDNISolone SOD SUCCI 125 MG/2 ML VIAL IV SCH (18:57)
[2023-07-31] MEDS: SYMBICORT 160-4.5 MCG INHALER INHALATION SCH (19:46)
[2023-07-31] MEDS: FAMOTIDINE 20 MG TAB PO SCH (20:18)
[2023-07-31] MEDS: ASCORBIC ACID 500 MG TAB PO SCH (20:19)
[2023-07-31] MEDS: guaiFENesin 600 MG TABLET.ER PO SCH (20:19)
[2023-07-31] MEDS ORDERED: ATORVASTATIN 20 MG TAB PO SCH (21:00)
[2023-08-01] MEDS: methylPREDNISolone SOD SUCCI 125 MG/2 ML VIAL IV SCH ×2 (01:13→06:45)
[2023-08-01] MEDS: SODIUM CHLORIDE 0.9% 1,000 ML IV SCH (06:45)
[2023-08-01 07:49] LABS: HCT 26.5 % (34.0-46.0); HGB 8.1 gm/dL (11.4-16.0); Hypochromasia Marked; MCH 30.1 pg (25.0-35.0); MCHC 30.7 g/dL (31.0-37.0); MCV 97.9 fL (80.0-100.0); Mean Platelet Volume 8.1; Platelet Count 329 k/uL (150-450); RBC 2.71 m/uL (3.80-5.40); RDW 14.4 % (11.5-15.5); WBC 3.5 k/uL (3.8-10.6)
[2023-08-01 08:12] LABS: African American GFR (CKD) 61 (>60 ml/min/1.73 sqM); Anion Gap 7 mmol/L; Blood Urea Nitrogen 37 mg/dL (7-17); Calcium 7.6 mg/dL (8.4-10.2); Carbon Dioxide 21 mmol/L (22-30); Chloride 108 mmol/L (98-107); Glucose 220 mg/dL (74-99); Non-African American GFR(CKD) 53 (>60 ml/min/1.73 sqM); Potassium 5.1 mmol/L (3.5-5.1); Sodium 136 mmol/L (137-145)
[2023-08-01 08:25] VITALS: BP 137/52; PULSE 70; RESP 16; TEMP 98.6
--- NOTE | 2023-08-01 08:42 | P.CNPUL ---
History of Present Illness Consult date: 08/01/23 Requesting physician: Rosemary Torres Reason for consult: cough Chief complaint: Cough. History of present illness: Pulmonary consult dated 08/01/2023. 88-year-old female who was seen in the emergency department, on 07/31/2023. She apparently came to the ER complaining of cough. She apparently not been feeling well for about 3 weeks. She apparently received an antibiotic and a nebulizer m achine from her primary care provider, which only helped the cough is small amount. Occasionally, she will cough up sputum. She denies any fever or chills. The patient apparently did test positive for coronavirus. Her chest x- ray was normal. She has smoked cigarettes for 64 years. She does not smoke currently. She has a history of hyperlipidemia, hypertension, possible COPD, CVA, osteoarthritis, pneumonia, seizure disorder, among other things. Currently, the patient's on 2 L of oxygen. Not receiving any IV fluids. Actually what we saw her, she was on room air, without any respiratory difficulty or distress whatsoever. White count 3.5, hemoglobin 8.1, hematocrit 26.5, and platelet count 329,000. Sodium 136, potassium 5.1, chlorides 108, CO2 21, BUN 37, and creatinine 0.97. Her Covid test was positive. Chest x-ray showed nothing acute. Review of Systems REVIEW OF SYSTEMS: CONSTITUTIONAL: [Negative.] NEUROLOGIC: [ Negative.] HEENT: [ Negative.] CARDIAC: [Negative.] PULMONARY: Cough, with occasional phlegm production. GI: [Negative.] : [Negative.] RHEUMATOLOGIC: [ Negative.] IMMUNOLOGIC: [ Negative.] ENDOCRINE: [Negative. ] DERMATOLOGIC: [Negative.] Past Medical History Past Medical History: COPD, CVA/TIA, Hypertension, Osteoarthritis (OA), Pneumonia, Vascular Disorder Additional Past Medical History / Comment(s): Jul 2017-seizure due to high fever with the flu, stroke 01/20/17-no effects, arthritis in neck History of Any Multi-Drug Resistant Organisms: None Reported Additional Past Surgical History / Comment(s): guillermo carotid endarterectomy, guillermo cataracts, angiogram/arthrectomy/balloon angioplasty, cervical fusion Past Anesthesia/Blood Transfusion Reactions: No Reported Reaction Past Psychological History: No Psychological Hx Reported Additional Psychological History / Comment(s): . Smoking Status: Former smoker Past Alcohol Use History: None Reported Additional Past Alcohol Use History / Comment(s): Quit smoking >4 years ago. Past Drug Use History: None Reported - Past Family History Daughter(s) Family Medical History: Cancer Father Additional Family Medical History / Comment(s): brain aneurysm Mother Family Medical History: Diabetes Mellitus Medications and Allergies Home Medications Medication Instructions Recorded Confirmed Type Aspirin [Adult Low Dose Aspirin EC] 81 mg PO DAILY 11/30/17 07/31/23 History Clopidogrel Bisulfate [Plavix] 75 mg PO DAILY 11/30/17 07/31/23 History Ferrous Sulfate [Iron (65 MG 325 mg PO DAILY 11/30/17 07/31/23 History Elemental)] Lisinopril-Hctz 20-25 mg 1 tab PO DAILY 11/30/17 07/31/23 History [Zestoretic 20-25] Alendronate Sodium [Fosamax] 70 mg PO WEEKLY 05/21/23 07/31/23 History Cholecalciferol [Vitamin D3 (25 25 mcg PO DAILY 05/21/23 07/31/23 History Mcg = 1000 Iu)] amLODIPine [Norvasc] 10 mg PO DAILY 05/21/23 07/31/23 History Atorvastatin [Lipitor] 20 mg PO HS 07/31/23 07/31/23 History Ipratropium-Albuterol Nebulize 3 ml INHALATION RT-QID PRN 07/31/23 07/31/23 History [Duoneb 0.5 mg-3 mg/3 ml Soln] Allergies Allergy/AdvReac Type Severity Reaction Status Date / Time No Known Allergies Allergy Verified 07/31/23 17:32 Physical Exam Osteopathic Statement: *. No significant issues noted on an osteopathic structural exam other than those noted in the History and Physical/Consult. Vitals: Vital Signs Temp Pulse Pulse Resp BP BP Pulse Ox 08/01/23 07:00 98.6 F 70 16 137/52 98 08/01/23 02:35 71 18 08/01/23 02:00 98.2 F 71 18 127/53 95 07/31/23 21:22 98.3 F 76 16 157/64 97 07/31/23 20:20 85 20 158/78 93 L 07/31/23 18:58 67 20 140/44 97 07/31/23 16:49 96 07/31/23 16:24 77 20 146/45 96 07/31/23 11:50 70 20 149/57 89 L 07/31/23 10:26 97.6 F 78 20 128/74 90 L Intake and Output 07/31/23 08/01/23 08/01/23 22:59 06:59 14:59 Other: Voiding Method Toilet # Voids 1 1 1 Weight 61.235 kg No acute distress, oriented 3. No conversational dyspnea or use of accessory muscles. Room air saturation 98%. HEENT examination is grossly unremarkable. Mucous membranes are moist. No oral lesions. Neck supple. Full range of motion. No adenopathy thyromegaly or neck vein distention. Cardiovascular examination reveals regular rhythm rate. S1-S2 normal. No S3 or S4. No discernible murmur noted. Heart rate 70 bpm. Lungs reveal mild scattered rhonchi. No wheezes or crackles. Breath sounds equal. Saturations 98% on room air. Abdomen soft bowel sounds are heard. No masses or tenderness. Extremities are intact. No cyanosis clubbing or edema. Skin is without rash or lesion. Neurologic examination is brief but nonfocal. Results - Laboratory Findings CBC and BMP: 08/01/23 07:13 08/01/23 07:13 PT/INR, D-dimer PT 10.3 sec (10.0-12.5) 07/31/23 11:32 INR 0.9 (<1.2) 07/31/23 11:32 Abnormal lab findings: Abnormal Labs 07/31/23 07/31/23 07/31/23 11:32 11:32 12:44 WBC RBC 3.08 L Hgb 9.5 L Hct 29.5 L MCHC Lymphocytes # 0.7 L Sodium Chloride Carbon Dioxide BUN 33 H Creatinine 1.17 H Glucose 145 H Calcium 8.1 L Total Protein 6.0 L Albumin 3.4 L SARS-CoV-2 (PCR) Detected A 08/01/23 08/01/23 07:13 07:13 WBC 3.5 L RBC 2.71 L Hgb 8.1 L Hct 26.5 L MCHC 30.7 L Lymphocytes # Sodium 136 L Chloride 108 H Carbon Dioxide 21 L BUN 37 H Creatinine Glucose 220 H Calcium 7.6 L Total Protein Albumin SARS-CoV-2 (PCR) - Diagnostic Findings Chest x-ray: image reviewed Assessment and Plan Assessment: Subacute viremia, secondary to coronavirus infection, without coronavirus associated pneumonia. Cough, secondary to coronavirus infection. History of hyperlipidemia. History of hypertension. Questionable history of COPD, secondary to 64 years of tobacco use. History of CVA. History of osteoarthritis. Remote history of seizure. Plan: Plan dated 08/01/2023. Not sure why this patient was admitted to the hospital. The patient could be discharged on some prednisone with a burst and taper. No additional recommendations are made. Room air saturations 98%. Chest x-ray is normal. The patient does not need any antibiotics. No additional recommendations at this time. The patient denies any difficulty breathing, but, it would be useful, to see her in the office, and a couple weeks, for complete PFTs, to establish whether or not she has a diagnosis of COPD. She did smoke for 64 years. Time with Patient: Greater than 30
[2023-08-01] MEDS ORDERED: FERROUS SULFATE 325 MG TAB PO SCH (09:00)
[2023-08-01] MEDS ORDERED: predniSONE 10 MG TAB PO SCH (09:00)
[2023-08-01] MEDS ORDERED: CLOPIDOGREL 75 MG TAB PO SCH (09:00)
[2023-08-01] MEDS ORDERED: ENOXAPARIN 40 MG/0.4 ML SYRINGE SQ SCH (09:00)
[2023-08-01] MEDS ORDERED: amLODIPine 10 MG TAB PO SCH (09:00)
[2023-08-01] MEDS ORDERED: ASPIRIN 81 MG PO SCH (09:00)
[2023-08-01] MEDS ORDERED: PANTOPRAZOLE 40 MG/10 ML VIAL IVP SCH (09:18)
[2023-08-01] MEDS: CHOLECALCIFEROL 125 MCG (5000 IU) TABLET PO SCH (09:39)
[2023-08-01] MEDS: ASCORBIC ACID 500 MG TAB PO SCH (09:39)
[2023-08-01] MEDS: guaiFENesin 600 MG TABLET.ER PO SCH (09:40)
[2023-08-01] MEDS: SYMBICORT 160-4.5 MCG INHALER INHALATION SCH (09:51)
[2023-08-01] MEDS: ALBUTEROL HFA INHALER INHALATION SCH ×2 (09:51→12:40)
[2023-08-01] MEDS: FAMOTIDINE 20 MG TAB PO SCH (10:00)
--- NOTE | 2023-08-01 16:33 | P.DS ---
Providers Date of admission: 07/31/23 14:56 Expected date of discharge: 08/01/23 Attending physician: Rosemary Torres DO Consults: 07/31/23 16:28 Consult Physician Routine Consulting Provider: Kevin Jay Reason/Comments: COPD/COVID Do you want consulting provider notified?: Yes Primary care physician: Angel Swanson [facility] Course: Discharge Diagnosis: Acute hypoxic respiratory failure, maintaining oxygen saturations at 98% on room air. Ambulatory pulse ox completed inpatient maintain SpO2 greater than 91% at all times. COVID-19 infection Acute kidney injury on chronic kidney disease stage III due to poor oral intake and dehydration. Creatinine 0.97 on discharge. Anemia, hemoglobin initially 9.5 and patient received IV fluid hydration and resulting in repeat hemoglobin of 8.1 patient denies any dark tarry stools or blood in stools and no active bleeding. Decrease in hemoglobin believed to be dilution as WBC count decreased from 7.1 down to 3.5, hemoglobin decreased from 9.5 down to 8.1 and platelet count decreased from 430 down to 329.. Hypertension. Patient may resume home medication regimen with lisinopril/hydrochlorothiazide 20/25 mg tablets daily and amlodipine 10 mg daily. CVA without residual deficits-continue with aspirin 81 mg daily, Plavix 75 mg daily, and Lipitor 40 mg at night Osteoarthritis-symptomatic care and pain management as needed, patient to be provided with assistance as needed. Hospital Course: Patient is a very pleasant 88-year-old female with a past medical history of hypertension, COPD, CVA without residual deficits, and osteoarthritis. She presented to the emergency department on 07/31/23 with a chief complaint of shortness of breath and concerns of pneumonia with reports of wheezing, shortness of breath, nonproductive cough, runny nose, decreased appetite, and generalized weakness. She was sent to the emergency department from [facility] where she was being evaluated for pneumonia. Upon arrival to our facility patient was found to be hypoxic with oxygen saturation 89% on room air at rest, vital signs otherwise unremarkable. Labs were completed and reviewed. CBC showing normocytic anemia with hemoglobin of 9.5 with baseline hemoglobin of 11. Coagulation profile normal findings. BMP revealing slight elevation of renal function with BUN of 33, creatinine 1.17, and GFR 42 with baseline creatinine of 0.8. Chest x-ray was completed and negative for acute cardiopulmonary process. Influenza A, influenza B, RSV were negative. Covid PCR was positive. Patient was admitted under services with consultation to pulmonology. Physical exam: Patient seen and fully evaluated at bedside this morning. Patient reports feeling well this morning and ready to go home. Vital signs reviewed and stable. General: Nontoxic, no distress and appears stated age. Derm: Skin warm and dry, normal coloration for ethnicity. Head: Atraumatic, normocephalic and symmetric. Eyes: EOMs intact, no lid lag, and anicteric sclera Mouth: no lip lesions, mucus membranes moist Cardiovascular: regular rate and rhythm with normal S1S2, no murmur, positive posterior tibial pulses bilaterally, and cap refill < 2 seconds. Lungs: Respirations even, regular, and unlabored on room air. Lungs CTA bilaterally, no rhonchi, no rales, no wheezing, and no accessory muscle usage. Abdominal: soft, nontender to palpation, no guarding, no appreciable organomega ly Ext: ROM intact. No gross muscle atrophy, no edema, no contractures Neuro: Speech clear, face symmetrical and CN II-XII grossly intact with no noted focal neuro deficits Psych: Alert and oriented to person, place, time, and situation. Appropriate and pleasant affect. A total of 32 minutes of time were spent preparing this complex discharge summary. Pt was discharged on 08/01/23 to 11:35 AM Patient was seen independently by Nurse Practitioner. This document was prepared using [email or web address] dictation software. Please allow for errors in lance crewmember/mlrs sergeant while rare they do occur. Cornel Gonzalez NP rendered care for this patient independently, reviewed the findings and plan as documented in the note above. I did not physically speak with or examine the patient on this date. Patient Condition at Discharge: Stable Plan - Discharge Summary Discharge Rx Participant: No New Discharge Prescriptions: New predniSONE See Taper PO DAILY 12 Days #30 tab Budesonide-Formot 160-4.5 Mcg [Symbicort 160-4.5 Mcg Inhaler] 2 puff INHALATION RT-BID 30 Days #1 each Continue Ferrous Sulfate [Iron (65 MG Elemental)] 325 mg PO DAILY Lisinopril-Hctz 20-25 mg [Zestoretic 20-25] 1 tab PO DAILY Clopidogrel Bisulfate [Plavix] 75 mg PO DAILY Aspirin [Adult Low Dose Aspirin EC] 81 mg PO DAILY amLODIPine [Norvasc] 10 mg PO DAILY Atorvastatin [Lipitor] 20 mg PO HS Ipratropium-Albuterol Nebulize [Duoneb 0.5 mg-3 mg/3 ml Soln] 3 ml INHALATION RT-QID PRN PRN Reason: Shortness Of Breath No Action Alendronate Sodium [Fosamax] 70 mg PO WEEKLY Cholecalciferol [Vitamin D3 (25 Mcg = 1000 Iu)] 25 mcg PO DAILY Discharge Medication List Aspirin [Adult Low Dose Aspirin EC] 81 mg PO DAILY 11/30/17 [History] Clopidogrel Bisulfate [Plavix] 75 mg PO DAILY 11/30/17 [History] Ferrous Sulfate [Iron (65 MG Elemental)] 325 mg PO DAILY 11/30/17 [History] Lisinopril-Hctz 20-25 mg [Zestoretic 20-25] 1 tab PO DAILY 11/30/17 [History] Alendronate Sodium [Fosamax] 70 mg PO WEEKLY 05/21/23 [History] Cholecalciferol [Vitamin D3 (25 Mcg = 1000 Iu)] 25 mcg PO DAILY 05/21/23 [History] amLODIPine [Norvasc] 10 mg PO DAILY 05/21/23 [History] Atorvastatin [Lipitor] 20 mg PO HS 07/31/23 [History] Ipratropium-Albuterol Nebulize [Duoneb 0.5 mg-3 mg/3 ml Soln] 3 ml INHALATION RT-QID PRN 07/31/23 [History] Budesonide-Formot 160-4.5 Mcg [Symbicort 160-4.5 Mcg Inhaler] 2 puff INHALATION RT-BID 30 Days #1 each 08/01/23 [Rx] predniSONE See Taper PO DAILY 12 Days #30 tab 08/01/23 [Rx] Follow up Appointment(s)/Referral(s): Angel Thomson MD [Primary Care Provider] - 1-2 days Kevin Jay DO [Doctor of Osteopathic Medicine] - 1 Week Patient Instructions/Handouts: COVID-19 and Chronic Health Conditions (DC) Activity/Diet/Wound Care/Special Instructions: Activity: As tolerated. Take breaks as needed. Diet: Heart healthy and carb consistent diet. Avoid salts, or foods with hidden salts such as canned or boxed foods and frozen dinners. Extra salt makes your heart work harder and traps the fluid in your body for longer. Special Instructions: Take all of your medications as directed and remember to keep all of your doctor's appointments and follow-up as needed. Thank you for allowing us to participate in your care, it was truly a pleasure having you for our patient!!! Discharge Disposition: HOME SELF-CARE
== END 2023-08-01 13:30 | disposition home or self-care (01) ==
LOC: EC 10:11 → 6NMEDSUR 14:56
PROVIDERS: ADMIT Internal Medicine; ATTEND Internal Medicine
DX: J96.01 Acute respiratory failure with hypoxia (principal); U07.1 COVID-19; J44.9 Chronic obstructive pulmonary disease, unspecified; E78.5 Hyperlipidemia, unspecified; M19.90 Unspecified osteoarthritis, unspecified site; N17.9 Acute kidney failure, unspecified; I12.9 Hypertensive chronic kidney disease with stage 1 through stage 4 chronic kidney disease, or unspecified chronic kidney disease; N18.30 Chronic kidney disease, stage 3 unspecified; D63.1 Anemia in chronic kidney disease; E86.0 Dehydration; Z86.73 Personal history of transient ischemic attack (TIA), and cerebral infarction without residual deficits; Z87.891 Personal history of nicotine dependence; Z79.02 Long term (current) use of antithrombotics/antiplatelets; Z79.82 Long term (current) use of aspirin; Z79.83 Long term (current) use of bisphosphonates; Z79.899 Other long term (current) drug therapy
CPT/HCPCS: 96376; 96361; 96372; 96375 ×2; 96374; 99285; 36415; 94640 ×4; 94760; 93005; 83880; 80053; 80048; 83605; 83735; 85025; 85027; 85610; 85730; 87636; 71046; G0378 ×2; J1100; J2930 ×2; J1650; J7512; C9113

== ENCOUNTER → 2024-01-14 | Outpatient (CLI) | payer MEDICARE, BC ==
[2024-01-14 13:09] VITALS: BP 201/65; PULSE 76; RESP 16; TEMP 97.9
[2024-01-14] MEDS: DENOSUMAB 60 MG/ML 1 ML SYRINGE SQ NR (13:09)
== END ==
LOC: PROCWHC3 12:54
PROVIDERS: ATTEND Nurse Practitioner Adult Health
DX: M81.0 Age-related osteoporosis without current pathological fracture (principal)
CPT/HCPCS: 96372; J0897

== ENCOUNTER 2024-06-09 19:15 | Emergency (ER) | payer MEDICARE, BC ==
--- NOTE | 2024-06-09 19:19 | ED ---
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 Fall Witnessed: yes, by family Place Fall Occurred: home Loss of Consciousness: none Prolonged Down Time?: no Symptoms Prior to Fall: none Location: head Location - Extremities: Right: Elbow Severity: severe Severity scale (1-10): 10 Context: tripped/slipped Associated Symptoms: denies - Related Data Home Medications Medication Instructions Recorded Confirmed Aspirin [Adult Low Dose Aspirin EC] 81 mg PO DAILY 11/30/17 07/31/23 Clopidogrel Bisulfate [Plavix] 75 mg PO DAILY 11/30/17 07/31/23 Ferrous Sulfate [Iron (65 MG 325 mg PO DAILY 11/30/17 07/31/23 Elemental)] Lisinopril-Hctz 20-25 mg 1 tab PO DAILY 11/30/17 07/31/23 [Zestoretic 20-25] Alendronate Sodium [Fosamax] 70 mg PO WEEKLY 05/21/23 07/31/23 Cholecalciferol [Vitamin D3 (25 25 mcg PO DAILY 05/21/23 07/31/23 Mcg = 1000 Iu)] amLODIPine [Norvasc] 10 mg PO DAILY 05/21/23 07/31/23 Atorvastatin [Lipitor] 20 mg PO HS 07/31/23 07/31/23 Ipratropium-Albuterol Nebulize 3 ml INHALATION RT-QID PRN 07/31/23 07/31/23 [Duoneb 0.5 mg-3 mg/3 ml Soln] Previous Rx's Medication Instructions Recorded Budesonide-Formot 160-4.5 Mcg 2 puff INHALATION RT-BID 30 Days 08/01/23 [Symbicort 160-4.5 Mcg Inhaler] #1 each predniSONE See Taper PO DAILY 12 Days #30 tab 08/01/23 Allergies Allergy/AdvReac Type Severity Reaction Status Date / Time No Known Allergies Allergy Verified 06/09/24 19:25 Review of Systems ROS Statement: Those systems with pertinent positive or pertinent negative responses have been documented in the HPI. ROS Other: All systems not noted in ROS Statement are negative. Past Medical History Past Medical History: COPD, CVA/TIA, Hypertension, Osteoarthritis (OA), Pneumonia, Vascular Disorder Additional Past Medical History / Comment(s): Jul 2017-seizure due to high fever with the flu, stroke 01/20/17-no effects, arthritis in neck History of Any Multi-Drug Resistant Organisms: None Reported Additional Past Surgical History / Comment(s): guillermo carotid endarterectomy, guillermo cataracts, angiogram/arthrectomy/balloon angioplasty, cervical fusion Past Anesthesia/Blood Transfusion Reactions: No Reported Reaction Smoking Status: Former smoker - Past Family History Daughter(s) Family Medical History: Cancer Father Additional Family Medical History / Comment(s): brain aneurysm Mother Family Medical History: Diabetes Mellitus General Exam General appearance: alert, in no apparent distress Head exam: Present: atraumatic, normocephalic, normal inspection Eye exam: Present: normal appearance, PERRL, EOMI. Absent: scleral icterus, conjunctival injection, periorbital swelling ENT exam: Present: normal exam, mucous membranes moist Neck exam: Present: normal inspection. Absent: tenderness, meningismus, lymphadenopathy Respiratory exam: Present: normal lung sounds bilaterally. Absent: respiratory distress, wheezes, rales, rhonchi, stridor Cardiovascular Exam: Present: regular rate, normal rhythm, normal heart sounds. Absent: systolic murmur, diastolic murmur, rubs, gallop, clicks GI/Abdominal exam: Present: soft, normal bowel sounds. Absent: distended, tenderness, guarding, rebound, rigid Extremities exam: Present: normal inspection, full ROM, normal capillary refill. Absent: tenderness, pedal edema, joint swelling, calf tenderness Back exam: Present: normal inspection Neurological exam: Present: alert, oriented X3, CN II-XII intact Psychiatric exam: Present: normal affect, normal mood Skin exam: Present: warm, dry, intact, normal color. Absent: rash Course Vital Signs 06/09/24 19:26 Temperature 98.0 F Pulse Rate 8 L Respiratory 18 Rate Blood Pressure 158/90 O2 Sat by Pulse 94 L Oximetry - Reevaluation(s) Reevaluation #1: 06/09/24 20:21 Medical records reviewed Reevaluation #2: 06/09/24 20:21 His pain is controlled Reevaluation #3: 06/09/24 20:21 Patient informed of results and questions answered Reevaluation #4: Was pt. sent in by a medical professional or institution (, [facility], MANAGER EMPLOYEE RELATIONS, urgent care, hospital, or group home...) When possible be specific @ -no Did you speak to anyone other than the patient for history (EMS, parent, family, police, friend...)? What history was obtained from this source @ -no Did you review nursing and triage notes (agree or disagree)? Why? @ -agree Are old charts reviewed (outside hosp., previous admission, EMS record, old EKG, old radiological studies, urgent care reports/EKG's, group home records)? Report findings @ -yes Differential Diagnosis (chest pain, altered mental status, abdominal pain women, abdominal pain men, vaginal bleeding, weakness, fever, dyspnea, syncope, headache, dizziness, GI bleed, back pain, seizure, CVA, palpatations, mental health, musculoskeletal)? @ -prior EKG interpreted by me (3pts min.). @ -yes X-rays interpreted by me (1pt min.). @ -yes negative for acute disease CT interpreted by me (1pt min.). @ -no U/S interpreted by me (1pt. min.). @ -no What testing was considered but not performed or refused? (CT, X-rays, U/S, labs)? Why? @ -none What meds were considered but not given or refused? Why? @ -none Did you discuss the management of the patient with other professionals (professionals i.e. , [facility], MANAGER EMPLOYEE RELATIONS, lab, RT, psych nurse, social sciences department chair, bit gatherer, teacher, flight radio officer, case assembler)? Give summary @ -no Was smoking cessation discussed for >3mins.? @ -no Was critical care preformed (if so, how long)? @ -no Were there social determinants of health that impacted care today? How? (Homelessness, low income, unemployed, alcoholism, drug addiction, transportation, low edu. Level, literacy, decrease access to med. care, prison, rehab)? @ -none Was there de-escalation of care discussed even if they declined (Discuss DNR or withdrawal of care, Hospice)? DNR status @ -no What co-morbidities impacted this encounter? (DM, HTN, Smoking, COPD, CAD, Cancer, CVA, ARF, Chemo, Hep., AIDS, mental health diagnosis, sleep apnea, morbid obesity)? @ -none Was patient admitted / discharged? Hospital course, mention meds given and route, prescriptions, significant lab abnormalities, going to OR and other pertinent info. @ - Undiagnosed new problem with uncertain prognosis? @ -no Drug Therapy requiring intensive monitoring for toxicity (Heparin, Nitro, Insulin, Cardizem)? @ -no Were any procedures done? @ -no Diagnosis/symptom? @ - Acute, or Chronic, or Acute on Chronic? @ -Acute Uncomplicated (without systemic symptoms) or Complicated (systemic symptoms)? @ -Complicated Side effects of treatment? @ -no Exacerbation, Progression, or Severe Exacerbation? @ -exacerbation Poses a threat to life or bodily function? How? (Chest pain, [place], [place], pneumonia, PE, COPD, DKA, ARF, appy, cholecystitis, CVA, Diverticulitis, Homicidal, Suicidal, threat to staff... and all critical care pts) @ -yes Reevaluation #5: Differential Headache: Migraine, tension, cluster, carbon monoxide, central venous thrombosis, pension karma temporal arteritis, acute closure glaucoma, intercranial hemorrhage, mastoiditis, sinusitis, head injury, this is not meant to be an all-inclusive list. Medical Decision Making - Medical Decision Making 89 female with a fall from standing traumatic forehead hematoma head injury CT brain C-spine negative x-ray right elbow negative skin tears were repaired patient can be discharged home - Lab Data Result diagrams: 06/09/24 19:32 Lab Results 06/09/24 06/09/24 Range/Units 19:32 19:32 WBC 7.3 (3.8-10.6) k/uL RBC 2.92 L (3.80-5.40) m/uL Hgb 9.2 L (11.4-16.0) gm/dL Hct 29.5 L (34.0-46.0) % MCV 100.7 H (80.0-100.0) fL MCH 31.6 (25.0-35.0) pg MCHC 31.4 (31.0-37.0) g/dL RDW 14.3 (11.5-15.5) % Plt Count 284 (150-450) k/uL MPV 7.3 Neutrophils % 77 % Lymphocytes % 11 % Monocytes % 6 % Eosinophils % 4 % Basophils % 1 % Neutrophils # 5.6 (1.3-7.7) k/uL Lymphocytes # 0.8 L (1.0-4.8) k/uL Monocytes # 0.4 (0-1.0) k/uL Eosinophils # 0.3 (0-0.7) k/uL Basophils # 0.0 (0-0.2) k/uL Hypochromasia Moderate Macrocytosis Slight PT 10.2 (10.0-12.5) sec INR 0.9 (<1.2) APTT 21.4 L (22.0-30.0) sec - Radiology Data Radiology results: report reviewed (CT brain C-spine x-ray elbow negative for acute disease), image reviewed Disposition Clinical Impression: Fall, Skin tear of right elbow without complication, Traumatic hematoma of forehead Disposition: HOME SELF-CARE Condition: Good Instructions (If sedation given, give patient instructions): Fall Prevention (ED), Skin Tear (ED), Head Injury (ED) Is patient prescribed a controlled substance at d/c from ED?: No Referrals: Angel Thomson MD [Primary Care Provider] - 1-2 days
[2024-06-09 19:30] VITALS: RESP 18; TEMP 98
[2024-06-09] MEDS: MORPHINE SULFATE 4 MG/ML SYRINGE IVP STA (19:38)
[2024-06-09] MEDS: SODIUM CHLORIDE 0.9% 500 ML 500 ML IV STA (19:38)
--- NOTE | 2024-06-09 19:46 | CT ---
EXAMINATION TYPE: CT brain alexaine wo con DATE OF EXAM: 06/09/2024 COMPARISON: 02/17/2020 CLINICAL INDICATION: Female, 89 years old with history of pain; PHH, Code Coag. Fall on thinners. TECHNIQUE: CT scan of the head and cervical spine are performed without contrast. CT DLP: 1380.[address] CTDI: mGy Automated exposure control for dose reduction was used. FINDINGS: There is no acute intracranial hemorrhage, mass effect, or midline shift identified. The ventricles and sulci are within normal limits in size. The globes are intact and the visualized sinuses are sandra ar. Moderate-sized right frontal scalp hematoma without fracture. Cervical spine is visualized in its entirety from C1 through upper thoracic levels and demonstrates s atisfactory alignment without evidence of acute fracture or dislocation. Prevertebral soft tissue ap pears within normal limits. The C1-C2 articulation is unremarkable. Decompressive cervical laminecto my with fusion. Stable alignment. Severe multilevel degenerative disc disease and spondylosis. IMPRESSION: 1. There is no acute fracture or dislocation evident in the cervical spine. 2. No acute intracranial hemorrhage, mass effect, or midline shift is seen. [facility], , 06/09/2024 7:44 PM
[2024-06-09 19:48] LABS: Basophils % (A) 1 %; Eosinophils # (A) 0.3 k/uL (0-0.7); Eosinophils % (A) 4 %; HCT 29.5 % (34.0-46.0); HGB 9.2 gm/dL (11.4-16.0); Hypochromasia Moderate; Lymphocytes # (A) 0.8 k/uL (1.0-4.8); Lymphocytes % (A) 11 %; MCH 31.6 pg (25.0-35.0); MCHC 31.4 g/dL (31.0-37.0); MCV 100.7 fL (80.0-100.0); Macrocytosis Slight; Mean Platelet Volume 7.3; Monocytes # (A) 0.4 k/uL (0-1.0); Monocytes % (A) 6 %; Neutrophils # (A) 5.6 k/uL (1.3-7.7); Neutrophils % (A) 77 %; Platelet Count 284 k/uL (150-450); RBC 2.92 m/uL (3.80-5.40); RDW 14.3 % (11.5-15.5); WBC 7.3 k/uL (3.8-10.6)
[2024-06-09 19:59] LABS: INR 0.9 (<1.2); Prothrombin Time 10.2 sec (10.0-12.5)
--- NOTE | 2024-06-09 20:07 | XR ---
EXAMINATION TYPE: XR elbow complete RT DATE OF EXAM: 06/09/2024 7:53 PM COMPARISON: None. CLINICAL INDICATION: Female, 89 years old with history of fall, TECHNIQUE: XR elbow complete RT views of the elbow were obtained. FINDINGS: There is no acute fracture/dislocation evident of the elbow. No abnormal fat pad signs are seen. Th e overlying soft tissue appears unremarkable. IMPRESSION: There is no acute fracture or dislocation of the elbow. ICD 10 NO FRACTURE, INITIAL EVALUATION [facility], , 06/09/2024 8:04 PM
[2024-06-09 20:12] LABS: Partial Thromboplastin Time 21.4 sec (22.0-30.0)
[2024-06-09 20:29] LABS: ALT 11 U/L (4-34); AST 21 U/L (14-36); African American GFR (CKD) 43 (>60 ml/min/1.73 sqM); Albumin 3.2 g/dL (3.5-5.0); Alkaline Phosphatase 53 U/L (38-126); Anion Gap 6 mmol/L; Blood Urea Nitrogen 34 mg/dL (7-17); Calcium 7.9 mg/dL (8.4-10.2); Carbon Dioxide 25 mmol/L (22-30); Chloride 106 mmol/L (98-107); Glucose 212 mg/dL (74-99); Non-African American GFR(CKD) 37 (>60 ml/min/1.73 sqM); Potassium 4.8 mmol/L (3.5-5.1); Sodium 137 mmol/L (137-145); Total Bilirubin 0.2 mg/dL (0.2-1.3); Total Protein 5.5 g/dL (6.3-8.2)
[2024-06-09] MEDS: cefTRIAXone IN SWFI 1,000 MG/10 ML SYRINGE IVP STA (20:36)
[2024-06-09] MEDS: CEPHALEXIN 500MG STARTER PACK 4 CAP BTL PO STA (20:38)
[2024-06-09] MEDS: traMADol 50 MG STARTER PACK 3 TAB BTL PO STA (20:38)
[2024-06-09 20:53] VITALS: BP 127/75; PULSE 82
== END 2024-06-09 20:58 | disposition home or self-care (01) ==
LOC: EC 19:15
DX: S51.011A Laceration without foreign body of right elbow, initial encounter (principal); S00.83XA Contusion of other part of head, initial encounter; Z86.73 Personal history of transient ischemic attack (TIA), and cerebral infarction without residual deficits; Z87.891 Personal history of nicotine dependence; W01.0XXA Fall on same level from slipping, tripping and stumbling without subsequent striking against object, initial encounter
CPT/HCPCS: 36415; 80053; 85025; 85610; 85730; 73080; 72125; 70450; 99285; 96374; 96375; J2270; J0696

== ENCOUNTER → 2024-07-25 | Outpatient (CLI) | payer MEDICARE, BC ==
[2024-07-25 14:19] VITALS: BP 183/62; PULSE 83; RESP 16; TEMP 98
[2024-07-25] MEDS: DENOSUMAB 60 MG/ML 1 ML SYRINGE SQ NR (14:19)
== END ==
LOC: PROCWHC3 14:06
PROVIDERS: ATTEND Nurse Practitioner Adult Health
DX: M81.0 Age-related osteoporosis without current pathological fracture (principal)
CPT/HCPCS: 96372; J0897